=== PATIENT | male | born 1975 | race Asian ===

== ENCOUNTER 2017-12-07 23:06 | Emergency (ER) | payer MEDICAID ==
[~2017-12-07] VITALS: Ht 165.1 cm; Wt 47.6 kg
[~2017-12-07 23:06] MED LIST: NEU100 PO
[2017-12-07 23:15] VITALS: BP_SYST 135
[2017-12-07] MEDS: NACL 0.9% 1,000 ML IV ONE (23:56)
[2017-12-07] MEDS: DIPHENHYDRAMINE INJ 50 MG/ML VIAL IVP ONE (23:57)
[2017-12-07] MEDS: PROCHLORPERAZINE EDISYLATE 10 MG/2 ML VIAL IVP ONE (23:59)
[2017-12-08 00:50] VITALS: BP_SYST 120
== END 2017-12-08 00:50 | disposition home or self-care (01) ==
LOC: SED 23:06
DX: J03.90 Acute tonsillitis, unspecified (principal); C85.90 Non-Hodgkin lymphoma, unspecified, unspecified site; R11.2 Nausea with vomiting, unspecified; Z88.1 Allergy status to other antibiotic agents
CPT/HCPCS: 96361; 96374; 96375; 99284; J0780; J1200; J7030

== ENCOUNTER 2018-02-19 19:18 | Emergency (ER) | payer MEDICAID ==
[~2018-02-19] VITALS: Ht 165.1 cm; Wt 48.1 kg
[~2018-02-19 19:18] MED LIST changes: +LEVO250T20 PO; +NOR10 PO; +PRO40 PO; +SODI650T PO
[2018-02-19 19:19] VITALS: BP_SYST 121
[2018-02-19 20:33] LABS: EOSINOPHILS # (AUTO) 0.4 K/uL (0.0-0.4)
[2018-02-19 20:34] LABS: CREATININE 6.78 mg/dL (0.55-1.30); POTASSIUM 4.3 mmol/L (3.5-5.1)
[2018-02-19 20:35] LABS: INR 1.2 (0.80-1.20)
[2018-02-19] MEDS ORDERED: fentaNYL CITRATE/PF 100 MCG/2 ML AMP IVP ONE (20:45)
[2018-02-19] MEDS ORDERED: ONDANSETRON HCL 4 MG/2 ML VIAL IVP ONE (20:45)
[2018-02-19] MEDS ORDERED: NACL 0.9% 1,000 ML IV ONE (20:45)
[2018-02-19] MEDS ORDERED: KETOROLAC TROMETHAMINE 30 MG VIAL IVP ONE (20:45)
[2018-02-19 20:46] LABS: ALBUMIN 1.5 g/dL (3.4-4.8); TOTAL BILIRUBIN 0.3 mg/dL (0.0-1.0)
[2018-02-19 21:06] LABS: BASOPHILS % (AUTO) 0.5 % (0.0-2.0); EOSINOPHILS % (AUTO) 4.1 % (0.0-4.0); HEMATOCRIT 27.8 % (36-54); HEMOGLOBIN 9.6 g/dL (14.0-18.0); LYMPHOCYTES % (AUTO) 10.6 % (20.5-51.5); MEAN CORPUSCULAR HEMOGLOBIN 31 pg (27-31); MEAN CORPUSCULAR HGB CONC 35 % (32-36); MEAN CORPUSCULAR VOLUME 88 fL (79.0-98.0); MONOCYTES # (AUTO) 0.8 K/uL (0.0-1.0); MONOCYTES % (AUTO) 8.6 % (1.7-9.3); NEUTROPHILS # (AUTO) 7.4 K/uL (1.8-7.7); NEUTROPHILS % (AUTO) 76.2 % (40.0-70.0); PLATELET COUNT (AUTO) 489 K/uL (130-430); RED BLOOD CELL COUNT(AUTO) 3.16 MIL/uL (4.2-6.2); RED CELL DISTRIBUTION WIDTH 14.1 % (9.0-15.0); WHITE BLOOD COUNT (AUTO) 9.6 K/uL (4.8-10.8)
[2018-02-19] MEDS ORDERED: MORPHINE 4 MG/ML INJ. SYRINGE IVP ONE ×2 (21:30→22:30)
[2018-02-19 23:05] VITALS: BP_SYST 124
== END 2018-02-19 23:05 | disposition home or self-care (01) ==
LOC: SED 19:18
DX: M79.1 Myalgia (principal); D64.9 Anemia, unspecified; N18.9 Chronic kidney disease, unspecified; D47.Z2 Castleman disease; R03.0 Elevated blood-pressure reading, without diagnosis of hypertension; Z88.1 Allergy status to other antibiotic agents; Z79.899 Other long term (current) drug therapy
CPT/HCPCS: 36415; 71045; 80053; 80061; 82550; 83880; 84484; 85025; 85610; 85730; 93005; 96374; 96375; 96376; 99285; J1885; J2270; J2405; J3010; J7030

== ENCOUNTER 2018-04-10 19:24 | Inpatient (IN) | payer MEDICAID ==
[~2018-04-10] VITALS: Ht 165.1 cm; Wt 47.6 kg
[~2018-04-10 19:24] MED LIST changes: +LEVO250T2 PO; -LEVO250T20 PO
[2018-04-10 19:29] VITALS: BP_SYST 143
[2018-04-10] MEDS ORDERED: NACL 0.9% 1,000 ML IV ONE (19:42)
[2018-04-10 20:24] LABS: CALCIUM 8.1 mg/dL (8.4-11.0); CREATININE 5.64 mg/dL (0.55-1.30); POTASSIUM 3.9 mmol/L (3.5-5.1)
[2018-04-10 20:27] LABS: INR 1.2 (0.80-1.20); PROTHROMBIN TIME 12.6 SECS (9.5-12.5)
[2018-04-10 20:38] LABS: ALBUMIN 1.4 g/dL (3.4-4.8); TOTAL BILIRUBIN 0.4 mg/dL (0.0-1.0)
[2018-04-10 20:45] LABS: RED BLOOD CELL COUNT(AUTO) 2.19 MIL/uL (4.2-6.2); WHITE BLOOD COUNT (AUTO) 10.1 K/uL (4.8-10.8)
[2018-04-10 20:46] LABS: MEAN CORPUSCULAR HEMOGLOBIN 30 pg (27-31); MEAN CORPUSCULAR HGB CONC 34 % (32-36); MEAN CORPUSCULAR VOLUME 87 fL (79.0-98.0); PLATELET COUNT (AUTO) 441 K/uL (130-430)
[2018-04-10 20:47] LABS: HEMOGLOBIN 6.5 g/dL (14.0-18.0)
[2018-04-10 20:51] LABS: BAND % (MANUAL) 0 % (0-6)
[2018-04-10 20:52] LABS: BASOPHILS % (MANUAL) 0 % (0-2); EOSINOPHILS % (MANUAL) 2 % (0-7); LYMPHOCYTES % (MANUAL) 14 % (20-46); MONOCYTES % (MANUAL) 7 % (0-11)
[2018-04-10 23:48] VITALS: BP_SYST 132
[2018-04-11 00:35] VITALS: BP_SYST 140
[2018-04-11 01:41] VITALS: BP_SYST 132
[2018-04-11] MEDS: LORazepam 2 MG/ML VIAL IVP PRN (02:26)
[2018-04-11 07:55] VITALS: BP_SYST 132
[2018-04-11 08:33] LABS: ALBUMIN 1.3 g/dL (3.4-4.8); CALCIUM 8.2 mg/dL (8.4-11.0); CREATININE 6.12 mg/dL (0.55-1.30); POTASSIUM 3.9 mmol/L (3.5-5.1); TOTAL BILIRUBIN 0.6 mg/dL (0.0-1.0)
[2018-04-11] MEDS: PANTOPRAZOLE SODIUM 40 MG TAB PO SCH (08:35)
[2018-04-11] MEDS: SODIUM BICARBONATE 650 MG TABLET PO SCH ×3 (08:35→20:04)
[2018-04-11] MEDS: amLODIPine BESYLATE 10 MG TABLET PO SCH (08:37)
[2018-04-11 08:43] LABS: BASOPHILS # (AUTO) 0.1 K/uL (0.0-0.2); BASOPHILS % (AUTO) 0.9 % (0.0-2.0); EOSINOPHILS # (AUTO) 0.5 K/uL (0.0-0.4); EOSINOPHILS % (AUTO) 5.3 % (0.0-4.0); HEMOGLOBIN 7.2 g/dL (14.0-18.0); LYMPHOCYTES # (AUTO) 1.4 K/uL (1.0-5.5); LYMPHOCYTES % (AUTO) 14.7 % (20.5-51.5); MEAN CORPUSCULAR HEMOGLOBIN 31 pg (27-31); MEAN CORPUSCULAR HGB CONC 34 % (32-36); MEAN CORPUSCULAR VOLUME 90 fL (79.0-98.0); MONOCYTES % (AUTO) 10.1 % (1.7-9.3); NEUTROPHILS # (AUTO) 6.8 K/uL (1.8-7.7); PLATELET COUNT (AUTO) 424 K/uL (130-430); RED BLOOD CELL COUNT(AUTO) 2.33 MIL/uL (4.2-6.2); RED CELL DISTRIBUTION WIDTH 13.2 % (9.0-15.0); WHITE BLOOD COUNT (AUTO) 9.8 K/uL (4.8-10.8)
[2018-04-11 12:35] VITALS: BP_SYST 127
[2018-04-11 16:45] VITALS: BP_SYST 122
[2018-04-11 19:15] VITALS: BP_SYST 128
[2018-04-11] MEDS ORDERED: GABAPENTIN 100 MG CAPSULE PO SCH (21:00)
[2018-04-12] MEDS: LORazepam 2 MG/ML VIAL IVP PRN (00:15)
[2018-04-12 00:26] VITALS: BP_SYST 111
[2018-04-12 06:47] LABS: CALCIUM 8.4 mg/dL (8.4-11.0); CREATININE 4.19 mg/dL (0.55-1.30); POTASSIUM 4.6 mmol/L (3.5-5.1)
[2018-04-12 07:33] LABS: BASOPHILS # (AUTO) 0.1 K/uL (0.0-0.2); BASOPHILS % (AUTO) 0.6 % (0.0-2.0); EOSINOPHILS # (AUTO) 0.3 K/uL (0.0-0.4); EOSINOPHILS % (AUTO) 3.2 % (0.0-4.0); HEMATOCRIT 24.4 % (36-54); HEMOGLOBIN 8.7 g/dL (14.0-18.0); LYMPHOCYTES # (AUTO) 1.1 K/uL (1.0-5.5); LYMPHOCYTES % (AUTO) 12.4 % (20.5-51.5); MEAN CORPUSCULAR HEMOGLOBIN 31 pg (27-31); MEAN CORPUSCULAR HGB CONC 36 % (32-36); MEAN CORPUSCULAR VOLUME 87 fL (79.0-98.0); MONOCYTES # (AUTO) 0.9 K/uL (0.0-1.0); MONOCYTES % (AUTO) 10.2 % (1.7-9.3); NEUTROPHILS # (AUTO) 6.2 K/uL (1.8-7.7); NEUTROPHILS % (AUTO) 73.6 % (40.0-70.0); PLATELET COUNT (AUTO) 429 K/uL (130-430); RED BLOOD CELL COUNT(AUTO) 2.79 MIL/uL (4.2-6.2); RED CELL DISTRIBUTION WIDTH 13.3 % (9.0-15.0); WHITE BLOOD COUNT (AUTO) 8.6 K/uL (4.8-10.8)
[2018-04-12 07:54] VITALS: BP_SYST 121
[2018-04-12] MEDS: SODIUM BICARBONATE 650 MG TABLET PO SCH (08:12)
[2018-04-12] MEDS: PANTOPRAZOLE SODIUM 40 MG TAB PO SCH (08:13)
[2018-04-12] MEDS: amLODIPine BESYLATE 10 MG TABLET PO SCH (08:13)
[2018-04-12 10:08] VITALS: BP_SYST 121
== END 2018-04-12 10:50 | disposition home or self-care (01) | DRG 663 ==
LOC: SED 19:24 → STU 21:53
PROVIDERS: ADMIT Internal Medicine Hospice and Palliative Medicine; ATTEND Internal Medicine Hospice and Palliative Medicine
PROC: 30233N1 Transfusion of Nonautologous Red Blood Cells into Peripheral Vein, Percutaneous Approach (ICD-10-PCS; principal; 2018-04-10)
PROC: 5A1D70Z Performance of Urinary Filtration, Intermittent, Less than 6 Hours Per Day (ICD-10-PCS; 2018-04-11)
DX: D64.9 Anemia, unspecified (principal); E43 Unspecified severe protein-calorie malnutrition; N18.6 End stage renal disease; I12.0 Hypertensive chronic kidney disease with stage 5 chronic kidney disease or end stage renal disease; F12.90 Cannabis use, unspecified, uncomplicated; D47.Z2 Castleman disease; Z88.1 Allergy status to other antibiotic agents; Z88.8 Allergy status to other drugs, medicaments and biological substances; Z99.2 Dependence on renal dialysis; Z79.899 Other long term (current) drug therapy
CPT/HCPCS: 36415; 71045; 80048; 80053; 83880; 84484; 85007; 85025; 85027; 85610-TC; 85730-TC; 86886; 86900; 86901; 86920; 87081; 90935; 99285; J2060; J7030; J7050; P9021

== ENCOUNTER 2018-09-09 11:23 | Inpatient (IN) | payer OTHER, MEDICAID ==
[~2018-09-09] VITALS: Ht 165.1 cm; Wt 46.3 kg
[~2018-09-09 11:23] MED LIST changes: -LEVO250T2 PO
[2018-09-09 11:31] VITALS: BP_SYST 118
[2018-09-09] MEDS ORDERED: LEVO250T2 PO (11:45)
[2018-09-09] MEDS ORDERED: NACL 0.9% 1,000 ML IV ONE (12:03)
[2018-09-09] MEDS ORDERED: MORPHINE 4 MG/ML INJ. SYRINGE IM ONE (12:15)
[2018-09-09] MEDS ORDERED: ONDANSETRON HCL 4 MG/2 ML VIAL IVP ONE (12:15)
[2018-09-09 12:32] LABS: CALCIUM 8.9 mg/dL (8.4-11.0); CREATININE 3.89 mg/dL (0.55-1.30); INR 1.2 (0.80-1.20); POTASSIUM 4.3 mmol/L (3.5-5.1); PROTHROMBIN TIME 12.4 SECS (9.5-12.5)
[2018-09-09 12:37] LABS: ALBUMIN 1.9 g/dL (3.4-4.8); TOTAL BILIRUBIN 0.3 mg/dL (0.0-1.0)
[2018-09-09 12:45] LABS: BASOPHILS % (AUTO) 0.1 % (0.0-2.0); EOSINOPHILS # (AUTO) 0.1 K/uL (0.0-0.4); HEMATOCRIT 25.7 % (36-54); HEMOGLOBIN 8.3 g/dL (14.0-18.0); LYMPHOCYTES # (AUTO) 0.3 K/uL (1.0-5.5); LYMPHOCYTES % (AUTO) 3.9 % (20.5-51.5); MEAN CORPUSCULAR HEMOGLOBIN 26 pg (27-31); MEAN CORPUSCULAR HGB CONC 32 % (32-36); MEAN CORPUSCULAR VOLUME 81 fL (79.0-98.0); MONOCYTES # (AUTO) 0.3 K/uL (0.0-1.0); MONOCYTES % (AUTO) 3.8 % (1.7-9.3); NEUTROPHILS # (AUTO) 8.3 K/uL (1.8-7.7); NEUTROPHILS % (AUTO) 91.2 % (40.0-70.0); PLATELET COUNT (AUTO) 529 K/uL (130-430); RED BLOOD CELL COUNT(AUTO) 3.18 MIL/uL (4.2-6.2); RED CELL DISTRIBUTION WIDTH 17.2 % (9.0-15.0)
[2018-09-09] MEDS ORDERED: MORPHINE 2 MG/ML INJ. SYRINGE IVP ONE (13:00)
[2018-09-09] MEDS ORDERED: MORPHINE 4 MG/ML INJ. SYRINGE IVP ONE (13:30)
[2018-09-09 14:35] LABS: BILIRUBIN,URINE NEGATIVE (NEGATIVE); BLOOD, URINE 1+ (NEGATIVE); CLARITY/URINE SL HAZY (CLEAR); COLOR,URINE YELLOW (YELLOW); GLUCOSE,URINE 1+ (NEGATIVE); KETONES,URINE TRACE (NEGATIVE); LEUKOCYTE ESTERASE ,URINE NEGATIVE (NEGATIVE); NITRITE, URINE NEGATIVE (NEGATIVE); PH,URINE >=9.0 (5.0-8.0); PROTEIN URINE 3+ (NEGATIVE); UROBILINOGEN,URINE 0.2 (0.2-1.0)
[2018-09-09 14:42] LABS: BACTERIA,URINE FEW /HPF (None Seen); MUCUS,URINE 1+ /LPF (None Seen); WBC,URINE 0-3 /HPF (0-3)
[2018-09-09 14:52] VITALS: BP_SYST 118
[2018-09-09] MEDS ORDERED: MORPHINE 4 MG/ML INJ. SYRINGE IVP PRN (16:00)
[2018-09-09] MEDS ORDERED: PANTOPRAZOLE SODIUM 40 MG/VIAL (PROTONIX) IVP ONE (16:00)
[2018-09-09] MEDS ORDERED: MORPHINE 4 MG/ML INJ. SYRINGE ONE (16:15)
[2018-09-09] MEDS ORDERED: ACETAMINOPHEN 650 MG SUPP.RECT RC PRN (16:15)
[2018-09-09] MEDS: NACL 0.9% 1,000 ML IV SCH (16:20)
[2018-09-09 16:21] VITALS: BP_SYST 118
[2018-09-09] MEDS ORDERED: metroNIDAZOLE 500 mg/NS 100 ML IV ONE (16:30)
[2018-09-09] MEDS ORDERED: IPRATROPIUM/ALBUTEROL SULFATE 3 ML AMPUL.NEB (DUONEB) INH ONE (16:30)
[2018-09-09] MEDS: LEVOFLOXACIN 250 MG/D5W 50 ML IV SCH (17:22)
[2018-09-09 19:15] VITALS: BP_SYST 121
[2018-09-09] MEDS ORDERED: LORazepam 2 MG/ML VIAL IVP SCH (21:00)
[2018-09-09] MEDS: metroNIDAZOLE 500 mg/NS 100 ML IV SCH (21:37)
[2018-09-09] MEDS: IPRATROPIUM/ALBUTEROL SULFATE 3 ML AMPUL.NEB (DUONEB) INH SCH (23:07)
[2018-09-10 00:48] VITALS: BP_SYST 132
[2018-09-10] MEDS: metroNIDAZOLE 500 mg/NS 100 ML IV SCH ×3 (05:44→13:00)
[2018-09-10] MEDS: NACL 0.9% 1,000 ML IV SCH ×2 (05:45→12:27)
[2018-09-10] MEDS: IPRATROPIUM/ALBUTEROL SULFATE 3 ML AMPUL.NEB (DUONEB) INH SCH ×3 (07:04→22:00)
[2018-09-10 07:18] LABS: ALBUMIN 1.6 g/dL (3.4-4.8); BILIRUBIN,DIRECT 0.1 mg/dL (0.0-0.3); CALCIUM 8.7 mg/dL (8.4-11.0); CREATININE 4.68 mg/dL (0.55-1.30); POTASSIUM 4.2 mmol/L (3.5-5.1); THYROID STIMULATING HORMONE 2.18 uIu/mL (0.34-4.82); TOTAL BILIRUBIN 0.4 mg/dL (0.0-1.0)
[2018-09-10 07:29] LABS: TOTAL IRON BIND. CAPACITY 124 ug/dL (250-450)
[2018-09-10 08:16] VITALS: BP_SYST 120
[2018-09-10 08:23] LABS: BASOPHILS % (AUTO) 0.2 % (0.0-2.0); EOSINOPHILS # (AUTO) 0.1 K/uL (0.0-0.4); HEMATOCRIT 25.1 % (36-54); HEMOGLOBIN 7.8 g/dL (14.0-18.0); LYMPHOCYTES # (AUTO) 0.9 K/uL (1.0-5.5); LYMPHOCYTES % (AUTO) 5.9 % (20.5-51.5); MEAN CORPUSCULAR HEMOGLOBIN 26 pg (27-31); MEAN CORPUSCULAR HGB CONC 31 % (32-36); MEAN CORPUSCULAR VOLUME 83 fL (79.0-98.0); MONOCYTES # (AUTO) 0.9 K/uL (0.0-1.0); MONOCYTES % (AUTO) 5.9 % (1.7-9.3); NEUTROPHILS # (AUTO) 13.1 K/uL (1.8-7.7); PLATELET COUNT (AUTO) 438 K/uL (130-430); RED BLOOD CELL COUNT(AUTO) 3.03 MIL/uL (4.2-6.2); RED CELL DISTRIBUTION WIDTH 17.6 % (9.0-15.0)
[2018-09-10] MEDS: PANTOPRAZOLE SODIUM 40 MG/VIAL (PROTONIX) IVP SCH (08:47)
[2018-09-10] MEDS ORDERED: WATER FOR IRRIGATION,STERILE 1,000 ML IRRIG.SOLN IR ONE (10:10)
[2018-09-10] MEDS ORDERED: BUPIVACAINE /EPINEPHRINE/PF 0.25% 30 ML VIAL INJ ONE (10:10)
[2018-09-10] MEDS ORDERED: ONDANSETRON HCL 4 MG/2 ML VIAL IVP ONE (10:10)
[2018-09-10] MEDS ORDERED: fentaNYL CITRATE 250 MCG/5 ML AMP IV ONE (10:10)
[2018-09-10] MEDS ORDERED: PROPOFOL 200MG/ 20ML VIAL (DIPRIVAN) IV ONE (10:10)
[2018-09-10] MEDS ORDERED: MIDAZOLAM HCL 5 MG/5 ML VIAL IVP ONE (10:10)
[2018-09-10] MEDS ORDERED: ATRACURIUM BESYLATE 100 MG/10 ML VIAL (ATRACURIUM) IV ONE (10:10)
[2018-09-10] MEDS ORDERED: SEVOFLURANE 15 MIN GAS INH ONE (10:10)
[2018-09-10] MEDS ORDERED: NS 1000 ML IV.SOLN IV ONE (10:10)
[2018-09-10] MEDS ORDERED: 0.45% NACL 1,000 ML IV SCH (10:55)
[2018-09-10] MEDS ORDERED: METOCLOPRAMIDE HCL 10 MG/2 ML VIAL IVP PRN (11:00)
[2018-09-10] MEDS ORDERED: MORPHINE 4 MG/ML INJ. SYRINGE IVP PRN ×3 (11:00)
[2018-09-10] MEDS ORDERED: CEFAZOLIN 1 GM IVPB PREMIX 50 ML IV SCH (11:45)
[2018-09-10] MEDS ORDERED: ACETAMINOPHEN 325 MG TABLET PO PRN (11:45)
[2018-09-10 12:15] VITALS: BP_SYST 128
[2018-09-10] MEDS: HYDROmorphone 1 MG INJ. 1 MG/ML AMPUL IVP PRN ×2 (12:28→19:03)
[2018-09-10 12:43] VITALS: BP_SYST 125
[2018-09-10] MEDS ORDERED: HYDROcodone/ACETAMIN 5-325 MG TAB (NORCO/ VICODIN) PO PRN (13:00)
[2018-09-10] MEDS: ONDANSETRON HCL 4 MG/2 ML VIAL IVP PRN ×2 (17:10→21:20)
[2018-09-10 20:00] VITALS: BP_SYST 127
[2018-09-10] MEDS ORDERED: HYDROmorphone 1 MG INJ. 1 MG/ML AMPUL IVP PRN (21:45)
[2018-09-10] MEDS ORDERED: LORazepam 1 MG TABLET PO SCH (22:00)
[2018-09-11 00:35] VITALS: BP_SYST 105
[2018-09-11] MEDS: IPRATROPIUM/ALBUTEROL SULFATE 3 ML AMPUL.NEB (DUONEB) INH SCH ×3 (06:00→22:00)
[2018-09-11 07:41] LABS: BASOPHILS % (AUTO) 0.4 % (0.0-2.0); EOSINOPHILS # (AUTO) 0.5 K/uL (0.0-0.4); EOSINOPHILS % (AUTO) 5.2 % (0.0-4.0); HEMOGLOBIN 7.2 g/dL (14.0-18.0); LYMPHOCYTES # (AUTO) 0.8 K/uL (1.0-5.5); LYMPHOCYTES % (AUTO) 8.7 % (20.5-51.5); MEAN CORPUSCULAR HEMOGLOBIN 26 pg (27-31); MEAN CORPUSCULAR HGB CONC 30 % (32-36); MEAN CORPUSCULAR VOLUME 85 fL (79.0-98.0); MONOCYTES # (AUTO) 0.5 K/uL (0.0-1.0); NEUTROPHILS # (AUTO) 7.1 K/uL (1.8-7.7); NEUTROPHILS % (AUTO) 79.7 % (40.0-70.0); PLATELET COUNT (AUTO) 441 K/uL (130-430); RED BLOOD CELL COUNT(AUTO) 2.83 MIL/uL (4.2-6.2); RED CELL DISTRIBUTION WIDTH 17.3 % (9.0-15.0)
[2018-09-11 07:47] LABS: WHITE BLOOD COUNT (AUTO) 8.9 K/uL (4.8-10.8)
[2018-09-11 07:55] LABS: ALBUMIN 1.5 g/dL (3.4-4.8); CALCIUM 8.4 mg/dL (8.4-11.0); CREATININE 4.46 mg/dL (0.55-1.30); TOTAL BILIRUBIN 0.4 mg/dL (0.0-1.0)
[2018-09-11 08:26] VITALS: BP_SYST 128
[2018-09-11] MEDS: PANTOPRAZOLE SODIUM 40 MG/VIAL (PROTONIX) IVP SCH (08:31)
[2018-09-11 12:27] VITALS: BP_SYST 143
[2018-09-11] MEDS: ONDANSETRON HCL 4 MG/2 ML VIAL IVP PRN (12:52)
[2018-09-11] MEDS: NACL 0.9% 1,000 ML IV SCH (14:19)
[2018-09-11] MEDS: LEVOFLOXACIN 250 MG/D5W 50 ML IV SCH (15:49)
[2018-09-11 16:14] VITALS: BP_SYST 136
[2018-09-11] MEDS ORDERED: LORazepam 1 MG TABLET PO PRN (16:15)
[2018-09-11] MEDS: MUPIROCIN 2% TOPICAL OINTMENT 22 GM NS SCH ×2 (18:19→21:27)
[2018-09-11 20:25] VITALS: BP_SYST 115
[2018-09-12 01:28] VITALS: BP_SYST 138
[2018-09-12] MEDS: IPRATROPIUM/ALBUTEROL SULFATE 3 ML AMPUL.NEB (DUONEB) INH SCH ×3 (07:24→22:00)
[2018-09-12 07:41] LABS: BASOPHILS % (AUTO) 0.4 % (0.0-2.0); EOSINOPHILS # (AUTO) 0.4 K/uL (0.0-0.4); EOSINOPHILS % (AUTO) 5.4 % (0.0-4.0); HEMATOCRIT 25.7 % (36-54); HEMOGLOBIN 7.5 g/dL (14.0-18.0); LYMPHOCYTES # (AUTO) 0.6 K/uL (1.0-5.5); LYMPHOCYTES % (AUTO) 7.7 % (20.5-51.5); MEAN CORPUSCULAR HEMOGLOBIN 25 pg (27-31); MEAN CORPUSCULAR HGB CONC 29 % (32-36); MEAN CORPUSCULAR VOLUME 86 fL (79.0-98.0); MONOCYTES # (AUTO) 0.5 K/uL (0.0-1.0); MONOCYTES % (AUTO) 6.7 % (1.7-9.3); NEUTROPHILS # (AUTO) 6.1 K/uL (1.8-7.7); NEUTROPHILS % (AUTO) 79.8 % (40.0-70.0); PLATELET COUNT (AUTO) 465 K/uL (130-430); WHITE BLOOD COUNT (AUTO) 7.6 K/uL (4.8-10.8)
[2018-09-12 07:53] LABS: ALBUMIN 1.6 g/dL (3.4-4.8); CALCIUM 8.5 mg/dL (8.4-11.0); CREATININE 4.87 mg/dL (0.55-1.30); POTASSIUM 3.9 mmol/L (3.5-5.1); TOTAL BILIRUBIN 0.3 mg/dL (0.0-1.0)
[2018-09-12 08:26] VITALS: BP_SYST 143
[2018-09-12] MEDS: PANTOPRAZOLE SODIUM 40 MG/VIAL (PROTONIX) IVP SCH (09:09)
[2018-09-12] MEDS: MUPIROCIN 2% TOPICAL OINTMENT 22 GM NS SCH ×2 (09:10→20:23)
[2018-09-12] MEDS ORDERED: D5W 1,000 ML IV SCH (10:11)
[2018-09-12] MEDS ORDERED: HEPARIN SODIUM,PORCINE 5000 UNITS/ML VIAL MC PRN (10:30)
[2018-09-12 12:00] VITALS: BP_SYST 135
[2018-09-12] MEDS: NACL 0.9% 1,000 ML IV SCH (13:00)
[2018-09-12 16:00] VITALS: BP_SYST 134
[2018-09-12 19:05] VITALS: BP_SYST 118
[2018-09-13] MEDS: IPRATROPIUM/ALBUTEROL SULFATE 3 ML AMPUL.NEB (DUONEB) INH SCH (06:00)
[2018-09-13 06:25] VITALS: BP_SYST 108
[2018-09-13 07:52] VITALS: BP_SYST 131
[2018-09-13] MEDS: PANTOPRAZOLE SODIUM 40 MG/VIAL (PROTONIX) IVP SCH (08:54)
[2018-09-13] MEDS: MUPIROCIN 2% TOPICAL OINTMENT 22 GM NS SCH (08:54)
[2018-09-13 10:40] VITALS: BP_SYST 131
[2018-09-13 12:02] VITALS: BP_SYST 136
[2018-09-13 14:19] VITALS: BP_SYST 136
== END 2018-09-13 15:30 | disposition home or self-care (01) | DRG 338 ==
LOC: SED 11:23 → STU 14:11
PROVIDERS: ADMIT Internal Medicine; ATTEND Internal Medicine
PROC: 5A1D70Z Performance of Urinary Filtration, Intermittent, Less than 6 Hours Per Day (ICD-10-PCS; 2018-09-10)
PROC: 0DTJ4ZZ Resection of Appendix, Percutaneous Endoscopic Approach (ICD-10-PCS; principal; 2018-09-10 10:30)
PROC: 5A1D70Z Performance of Urinary Filtration, Intermittent, Less than 6 Hours Per Day (ICD-10-PCS; 2018-09-12)
PROC: 30233N1 Transfusion of Nonautologous Red Blood Cells into Peripheral Vein, Percutaneous Approach (ICD-10-PCS; 2018-09-12)
DX: K35.32 Acute appendicitis with perforation, localized peritonitis, and gangrene, without abscess (principal); N18.6 End stage renal disease; E43 Unspecified severe protein-calorie malnutrition; I12.0 Hypertensive chronic kidney disease with stage 5 chronic kidney disease or end stage renal disease; D47.Z2 Castleman disease; Z68.1 Body mass index [BMI] 19.9 or less, adult; K52.9 Noninfective gastroenteritis and colitis, unspecified; G62.9 Polyneuropathy, unspecified; D64.9 Anemia, unspecified; Z99.2 Dependence on renal dialysis; Z79.899 Other long term (current) drug therapy; Z92.21 Personal history of antineoplastic chemotherapy; Z88.1 Allergy status to other antibiotic agents
CPT/HCPCS: 36415; 71045; 80048; 80053; 80076; 81000-TC; 82150-TC; 82962; 83540-TC; 83550-TC; 83605; 83690-TC; 83735-TC; 83880; 84443-TC; 85025; 85610-TC; 86886; 86900; 86901; 86905; 86920; 87040-TC; 87070; 87070-TC; 87075-TC; 87081; 88304; 90935; 90937; 93005; 94640; 96361; 96374; 96375; 96376; 99285; C1727; C9113; G0378; J1170; J1644; J1956; J2060; J2250; J2270; J2405; J2704; J3010; J3490; J7030; J7040; J7060; J7620; P9021

== ENCOUNTER 2018-12-20 03:13 | Emergency (ER) | payer OTHER, MEDICAID ==
[~2018-12-20] VITALS: Ht 165.1 cm; Wt 48.5 kg
[~2018-12-20 03:13] MED LIST changes: +LEVO250T2 PO; -NOR10 PO; -SODI650T PO
[2018-12-20 03:40] VITALS: BP_SYST 111
[2018-12-20] MEDS ORDERED: NS 500 ML IV ONE (04:00)
[2018-12-20 04:27] LABS: BASOPHILS % (AUTO) 1.4 % (0.0-2.0); EOSINOPHILS % (AUTO) 6.8 % (0.0-4.0); HEMATOCRIT 26.3 % (36-54); HEMOGLOBIN 8.6 g/dL (14.0-18.0); LYMPHOCYTES # (AUTO) 0.6 K/uL (1.0-5.5); LYMPHOCYTES % (AUTO) 5.8 % (20.5-51.5); MEAN CORPUSCULAR HEMOGLOBIN 27 pg (27-31); MEAN CORPUSCULAR HGB CONC 33 % (32-36); MEAN CORPUSCULAR VOLUME 82 fL (79.0-98.0); MONOCYTES % (AUTO) 7.8 % (1.7-9.3); NEUTROPHILS # (AUTO) 7.4 K/uL (1.8-7.7); NEUTROPHILS % (AUTO) 78.2 % (40.0-70.0); PLATELET COUNT (AUTO) 529 K/uL (130-430); RED BLOOD CELL COUNT(AUTO) 3.22 MIL/uL (4.2-6.2); RED CELL DISTRIBUTION WIDTH 17.4 % (9.0-15.0); WHITE BLOOD COUNT (AUTO) 9.5 K/uL (4.8-10.8)
[2018-12-20 04:28] LABS: BASOPHILS # (AUTO) 0.1 K/uL (0.0-0.2); EOSINOPHILS # (AUTO) 0.6 K/uL (0.0-0.4); MONOCYTES # (AUTO) 0.7 K/uL (0.0-1.0)
[2018-12-20 04:34] LABS: CALCIUM 8.5 mg/dL (8.4-11.0); CREATININE 4.85 mg/dL (0.55-1.30); POTASSIUM 3.9 mmol/L (3.5-5.1)
[2018-12-20 04:40] LABS: ALBUMIN 1.6 g/dL (3.4-4.8); TOTAL BILIRUBIN 0.3 mg/dL (0.0-1.0)
[2018-12-20 05:05] VITALS: BP_SYST 114
== END 2018-12-20 03:40 | disposition home or self-care (01) ==
LOC: SED 03:13
DX: R53.1 Weakness (principal); Z86.2 Personal history of diseases of the blood and blood-forming organs and certain disorders involving the immune mechanism; Z88.1 Allergy status to other antibiotic agents; Z79.899 Other long term (current) drug therapy; Z99.2 Dependence on renal dialysis
CPT/HCPCS: 36415; 80053; 85025; 99283; J7040

== ENCOUNTER 2018-12-20 10:04 | Inpatient (IN) | payer OTHER, MEDICAID ==
[~2018-12-20] VITALS: Ht 165.1 cm; Wt 44.9 kg
[2018-12-20 10:12] VITALS: BP_SYST 119
[2018-12-20 11:31] LABS: BILIRUBIN,URINE NEGATIVE (NEGATIVE); BLOOD, URINE 2+ (NEGATIVE); CLARITY/URINE CLEAR (CLEAR); COLOR,URINE YELLOW (YELLOW); GLUCOSE,URINE 1+ (NEGATIVE); KETONES,URINE TRACE (NEGATIVE); LEUKOCYTE ESTERASE ,URINE NEGATIVE (NEGATIVE); NITRITE, URINE NEGATIVE (NEGATIVE); PH,URINE 8.5 (5.0-8.0); PROTEIN URINE 3+ (NEGATIVE)
[2018-12-20 11:38] LABS: BASOPHILS % (AUTO) 1.4 % (0.0-2.0); EOSINOPHILS % (AUTO) 4.2 % (0.0-4.0); HEMATOCRIT 26.6 % (36-54); HEMOGLOBIN 8.8 g/dL (14.0-18.0); LYMPHOCYTES # (AUTO) 0.6 K/uL (1.0-5.5); LYMPHOCYTES % (AUTO) 5.9 % (20.5-51.5); MEAN CORPUSCULAR HEMOGLOBIN 27 pg (27-31); MEAN CORPUSCULAR HGB CONC 33 % (32-36); MEAN CORPUSCULAR VOLUME 81 fL (79.0-98.0); MONOCYTES % (AUTO) 9.9 % (1.7-9.3); NEUTROPHILS # (AUTO) 7.5 K/uL (1.8-7.7); NEUTROPHILS % (AUTO) 78.6 % (40.0-70.0); PLATELET COUNT (AUTO) 511 K/uL (130-430); RED BLOOD CELL COUNT(AUTO) 3.27 MIL/uL (4.2-6.2); RED CELL DISTRIBUTION WIDTH 17.1 % (9.0-15.0)
[2018-12-20 11:39] LABS: BASOPHILS # (AUTO) 0.1 K/uL (0.0-0.2); EOSINOPHILS # (AUTO) 0.4 K/uL (0.0-0.4); MONOCYTES # (AUTO) 0.9 K/uL (0.0-1.0)
[2018-12-20 11:42] LABS: ANION GAP 11 (5-15); CALCIUM 8.5 mg/dL (8.4-11.0); CHLORIDE 99 mmol/L (98-107); CREATININE 5.02 mg/dL (0.55-1.30); GLUCOSE 118 mg/dL (70-99); POTASSIUM 3.9 mmol/L (3.5-5.1); SODIUM SERUM 136 mmol/L (136-145); UREA NITROGEN, BLOOD 36 mg/dL (8-21)
[2018-12-20 11:50] LABS: ALANINE AMINOTRANSFERASE 37 U/L (12-78); ALBUMIN 1.6 g/dL (3.4-4.8); ASPARTATE AMINOTRANSFERASE 33 U/L (10-37); TOTAL BILIRUBIN 0.3 mg/dL (0.0-1.0)
[2018-12-20 11:52] LABS: GFR AFRICAN AMERICAN 16 mL/min (>90)
[2018-12-20 12:08] LABS: WBC,URINE 0-3 /HPF (0-3)
[2018-12-20 12:09] LABS: BACTERIA,URINE RARE /HPF (None Seen)
[2018-12-20 16:19] VITALS: BP_SYST 130
[2018-12-20 19:00] VITALS: BP_SYST 122
[2018-12-20] MEDS ORDERED: LORazepam 2 MG/ML VIAL IVP PRN (19:30)
[2018-12-20] MEDS ORDERED: ONDANSETRON HCL 4 MG/2 ML VIAL IVP PRN (19:30)
[2018-12-20] MEDS ORDERED: ACETAMINOPHEN 325 MG TABLET PO PRN (19:30)
[2018-12-20] MEDS ORDERED: HYDROcodone/ACETAMIN 5-325 MG TAB (NORCO/ VICODIN) PO PRN (19:30)
[2018-12-20] MEDS ORDERED: HYDROcodone/ACETAMIN 10-325 MG TAB PO PRN (19:30)
[2018-12-20 20:00] VITALS: BP_SYST 122
[2018-12-20] MEDS ORDERED: NORMAL SALINE 5 ML DISP.SYRIN IVF SCH (22:00)
[2018-12-20] MEDS ORDERED: MECLIZINE HCL 25 MG TABLET (ANITVERT) PO PRN (22:00)
[2018-12-20] MEDS: NORMAL SALINE 5 ML DISP.SYRIN IVF SCH (22:05)
[2018-12-20] MEDS: GABAPENTIN 100 MG CAPSULE PO SCH (22:05)
[2018-12-21] MEDS ORDERED: PHENOL/MENTHOL 14.5 MG LOZENGE MM PRN (00:30)
[2018-12-21] MEDS ORDERED: MECLIZINE HCL 25 MG TABLET (ANITVERT) PO ONE (00:30)
[2018-12-21] MEDS: BENZOCAINE/MENTHOL 1 EACH LOZENGE MM PRN ×3 (00:50→17:40)
[2018-12-21 01:48] VITALS: BP_SYST 130
[2018-12-21] MEDS: PANTOPRAZOLE SODIUM 40 MG TAB PO SCH (06:33)
[2018-12-21] MEDS: NORMAL SALINE 5 ML DISP.SYRIN IVF SCH ×3 (06:33→22:25)
[2018-12-21 07:20] LABS: CREATININE 5.44 mg/dL (0.55-1.30); POTASSIUM 3.9 mmol/L (3.5-5.1)
[2018-12-21 07:30] LABS: ALBUMIN 1.6 g/dL (3.4-4.8); PHOSPHORUS 5.6 mg/dL (2.7-4.5); TOTAL BILIRUBIN 0.4 mg/dL (0.0-1.0)
[2018-12-21 07:50] VITALS: BP_SYST 131
[2018-12-21 08:34] LABS: HEMATOCRIT 26.5 % (36-54); HEMOGLOBIN 8.7 g/dL (14.0-18.0); MEAN CORPUSCULAR HEMOGLOBIN 27 pg (27-31); MEAN CORPUSCULAR HGB CONC 33 % (32-36); MEAN CORPUSCULAR VOLUME 83 fL (79.0-98.0); PLATELET COUNT (AUTO) 503 K/uL (130-430); RED CELL DISTRIBUTION WIDTH 17.1 % (9.0-15.0); WHITE BLOOD COUNT (AUTO) 8.6 K/uL (4.8-10.8)
[2018-12-21 08:35] LABS: BASOPHILS # (AUTO) 0.1 K/uL (0.0-0.2); EOSINOPHILS # (AUTO) 0.4 K/uL (0.0-0.4); EOSINOPHILS % (AUTO) 4.7 % (0.0-4.0); LYMPHOCYTES # (AUTO) 0.8 K/uL (1.0-5.5); LYMPHOCYTES % (AUTO) 9.7 % (20.5-51.5); MONOCYTES # (AUTO) 0.8 K/uL (0.0-1.0); MONOCYTES % (AUTO) 9.5 % (1.7-9.3); NEUTROPHILS # (AUTO) 6.5 K/uL (1.8-7.7); NEUTROPHILS % (AUTO) 75.1 % (40.0-70.0)
[2018-12-21] MEDS ORDERED: LEVOFLOXACIN 250 MG/D5W 50 ML IV SCH (11:00)
[2018-12-21 12:15] VITALS: BP_SYST 122
[2018-12-21 16:42] VITALS: BP_SYST 144
[2018-12-21 20:00] VITALS: BP_SYST 148
[2018-12-21] MEDS: MEROPENEM 500 MG in NS 50 ML IV SCH (21:57)
[2018-12-21] MEDS: GABAPENTIN 100 MG CAPSULE PO SCH (21:58)
[2018-12-22 04:00] VITALS: BP_SYST 156
[2018-12-22] MEDS: NORMAL SALINE 5 ML DISP.SYRIN IVF SCH (06:18)
[2018-12-22] MEDS: PANTOPRAZOLE SODIUM 40 MG TAB PO SCH (06:18)
[2018-12-22 07:33] VITALS: BP_SYST 120
[2018-12-22 08:23] LABS: CALCIUM 8.7 mg/dL (8.4-11.0); CREATININE 6.11 mg/dL (0.55-1.30); PHOSPHORUS 5.1 mg/dL (2.7-4.5); POTASSIUM 3.8 mmol/L (3.5-5.1)
[2018-12-22] MEDS: MEROPENEM 500 MG in NS 50 ML IV SCH (09:16)
[2018-12-22 09:43] LABS: C-REACTIVE PROTEIN QUANT 15.2 mg/dL (0-0.5)
[2018-12-22 10:50] LABS: HEMATOCRIT 27.5 % (36-54); HEMOGLOBIN 8.7 g/dL (14.0-18.0); MEAN CORPUSCULAR HEMOGLOBIN 26 pg (27-31); MEAN CORPUSCULAR HGB CONC 32 % (32-36); MEAN CORPUSCULAR VOLUME 84 fL (79.0-98.0); PLATELET COUNT (AUTO) 416 K/uL (130-430); RED BLOOD CELL COUNT(AUTO) 3.28 MIL/uL (4.2-6.2); RED CELL DISTRIBUTION WIDTH 17.2 % (9.0-15.0); WHITE BLOOD COUNT (AUTO) 9.4 K/uL (4.8-10.8)
[2018-12-22 10:51] LABS: BASOPHILS # (AUTO) 0.2 K/uL (0.0-0.2); BASOPHILS % (AUTO) 1.8 % (0.0-2.0); EOSINOPHILS # (AUTO) 0.5 K/uL (0.0-0.4); EOSINOPHILS % (AUTO) 5.3 % (0.0-4.0); ERYTHROCYTE SEDIMENTATION RATE 107 MM/HR (0-15); LYMPHOCYTES # (AUTO) 0.8 K/uL (1.0-5.5); LYMPHOCYTES % (AUTO) 8.8 % (20.5-51.5); MONOCYTES # (AUTO) 0.9 K/uL (0.0-1.0); MONOCYTES % (AUTO) 9.5 % (1.7-9.3); NEUTROPHILS % (AUTO) 74.6 % (40.0-70.0)
[2018-12-22 11:39] VITALS: BP_SYST 125
[2018-12-22] MEDS ORDERED: HEPARIN SODIUM,PORCINE 5000 UNITS/ML VIAL IVP ONE (11:45)
[2018-12-22 12:31] VITALS: BP_SYST 120
[2018-12-22] MEDS ORDERED: DOXY100C2 PO (13:36)
[2018-12-22 14:25] VITALS: BP_SYST 110
[2018-12-22 16:04] VITALS: BP_SYST 112
[2018-12-22] MEDS ORDERED: DOXYCYCLINE HYCLATE 100 MG CAPSULE PO SCH (22:00)
== END 2018-12-22 15:37 | disposition home or self-care (01) | DRG 193 ==
LOC: SED 10:04 → SMU 15:16 → STU 22:31
PROVIDERS: ADMIT Preventive Medicine Preventive Medicine/Occupational Environmental Medicine; ATTEND Preventive Medicine Preventive Medicine/Occupational Environmental Medicine
PROC: 5A1D70Z Performance of Urinary Filtration, Intermittent, Less than 6 Hours Per Day (ICD-10-PCS; principal; 2018-12-22)
DX: J18.9 Pneumonia, unspecified organism (principal); N18.6 End stage renal disease; E43 Unspecified severe protein-calorie malnutrition; D47.Z2 Castleman disease; E87.1 Hypo-osmolality and hyponatremia; Z68.1 Body mass index [BMI] 19.9 or less, adult; D47.9 Neoplasm of uncertain behavior of lymphoid, hematopoietic and related tissue, unspecified; J20.9 Acute bronchitis, unspecified; J32.9 Chronic sinusitis, unspecified; R73.9 Hyperglycemia, unspecified; E83.39 Other disorders of phosphorus metabolism; D63.8 Anemia in other chronic diseases classified elsewhere; E78.5 Hyperlipidemia, unspecified; Z99.2 Dependence on renal dialysis; Z92.21 Personal history of antineoplastic chemotherapy; Z88.1 Allergy status to other antibiotic agents
CPT/HCPCS: 36415; 70450-TC; 71045; 80048; 80053; 81000-TC; 83605; 83735-TC; 83880; 84100-TC; 84484; 85025; 85651-TC; 86140; 86710; 86738; 87040-TC; 87081; 87449; 90935; 93005; 93306; 93880; 96365; 99285; G0378; J1644; J1956; J2060; J2185; J7030; J7040; J8597

== ENCOUNTER 2019-03-31 17:08 | Inpatient (IN) | payer OTHER, MEDICAID ==
[~2019-03-31] VITALS: Ht 165.1 cm; Wt 46.7 kg
[~2019-03-31 17:08] MED LIST changes: +DOXY100C2 PO; -LEVO250T2 PO
[2019-03-31 17:16] VITALS: BP_SYST 114
[2019-03-31 17:53] LABS: BASOPHILS # (AUTO) 0.1 K/uL (0.0-0.2); BASOPHILS % (AUTO) 2.1 % (0.0-2.0); EOSINOPHILS # (AUTO) 0.1 K/uL (0.0-0.4); EOSINOPHILS % (AUTO) 1.4 % (0.0-4.0); LYMPHOCYTES # (AUTO) 0.5 K/uL (1.0-5.5); LYMPHOCYTES % (AUTO) 7.7 % (20.5-51.5); MEAN CORPUSCULAR HEMOGLOBIN 28 pg (27-31); MEAN CORPUSCULAR HGB CONC 33 % (32-36); MEAN CORPUSCULAR VOLUME 86 fL (79.0-98.0); MONOCYTES # (AUTO) 0.6 K/uL (0.0-1.0); MONOCYTES % (AUTO) 8.8 % (1.7-9.3); NEUTROPHILS # (AUTO) 5.7 K/uL (1.8-7.7); PLATELET COUNT (AUTO) 523 K/uL (130-430); RED BLOOD CELL COUNT(AUTO) 2.46 MIL/uL (4.2-6.2); RED CELL DISTRIBUTION WIDTH 14.6 % (9.0-15.0); WHITE BLOOD COUNT (AUTO) 7.1 K/uL (4.8-10.8)
[2019-03-31 17:59] LABS: HEMATOCRIT 21.3 % (36-54); HEMOGLOBIN 6.9 g/dL (14.0-18.0)
[2019-03-31 18:22] LABS: INR 1.2 (0.80-1.20); PROTHROMBIN TIME 12.3 SECS (9.5-12.5)
[2019-03-31 18:47] LABS: CALCIUM 8.5 mg/dL (8.4-11.0); CREATININE 5.26 mg/dL (0.55-1.30); POTASSIUM 3.8 mmol/L (3.5-5.1)
[2019-03-31 19:01] LABS: ALBUMIN 1.7 g/dL (3.4-4.8); TOTAL BILIRUBIN 0.3 mg/dL (0.0-1.0)
[2019-03-31] MEDS ORDERED: LORazepam 2 MG/ML VIAL IVP PRN (21:45)
[2019-03-31] MEDS ORDERED: HYDROcodone/ACETAMIN 5-325 MG TAB (NORCO/ VICODIN) PO PRN (21:45)
[2019-03-31] MEDS ORDERED: ONDANSETRON HCL 4 MG/2 ML VIAL IVP PRN (21:45)
[2019-03-31] MEDS ORDERED: ACETAMINOPHEN 325 MG TABLET PO PRN (21:45)
[2019-03-31] MEDS ORDERED: HYDROcodone/ACETAMIN 10-325 MG TAB PO PRN (21:45)
[2019-03-31 21:56] VITALS: BP_SYST 142
[2019-03-31] MEDS ORDERED: cefTRIAXone 1 GM IVPB PREMIX 50 ML IV SCH (22:00)
[2019-04-01 03:00] VITALS: BP_SYST 120
[2019-04-01 08:09] VITALS: BP_SYST 128
[2019-04-01] MEDS ORDERED: EPOETIN ALFA 3,000 UNITS/ML VIAL SUBCUT SCH (11:00)
[2019-04-01] MEDS ORDERED: ACETAMINOPHEN 325 MG TABLET PO PRN (11:00)
[2019-04-01] MEDS ORDERED: HYDROcodone/ACETAMIN 10-325 MG TAB PO PRN (11:00)
[2019-04-01] MEDS ORDERED: HYDROcodone/ACETAMIN 5-325 MG TAB (NORCO/ VICODIN) PO PRN (11:00)
[2019-04-01] MEDS ORDERED: ONDANSETRON HCL 4 MG/2 ML VIAL IVP PRN (11:00)
[2019-04-01 13:00] VITALS: BP_SYST 122
[2019-04-01] MEDS: NORMAL SALINE 5 ML DISP.SYRIN IVF SCH ×4 (14:00→22:04)
[2019-04-01 16:41] VITALS: BP_SYST 122
[2019-04-01 19:20] VITALS: BP_SYST 128
[2019-04-01 20:18] LABS: BASOPHILS # (AUTO) 0.1 K/uL (0.0-0.2); BASOPHILS % (AUTO) 1.8 % (0.0-2.0); EOSINOPHILS # (AUTO) 0.2 K/uL (0.0-0.4); EOSINOPHILS % (AUTO) 3.5 % (0.0-4.0); HEMATOCRIT 22.5 % (36-54); HEMOGLOBIN 7.4 g/dL (14.0-18.0); LYMPHOCYTES # (AUTO) 0.8 K/uL (1.0-5.5); LYMPHOCYTES % (AUTO) 12.3 % (20.5-51.5); MEAN CORPUSCULAR HEMOGLOBIN 28 pg (27-31); MEAN CORPUSCULAR HGB CONC 33 % (32-36); MEAN CORPUSCULAR VOLUME 86 fL (79.0-98.0); MONOCYTES # (AUTO) 0.7 K/uL (0.0-1.0); MONOCYTES % (AUTO) 10.9 % (1.7-9.3); NEUTROPHILS # (AUTO) 4.9 K/uL (1.8-7.7); NEUTROPHILS % (AUTO) 71.5 % (40.0-70.0); PLATELET COUNT (AUTO) 485 K/uL (130-430); RED BLOOD CELL COUNT(AUTO) 2.62 MIL/uL (4.2-6.2); RED CELL DISTRIBUTION WIDTH 14.6 % (9.0-15.0); WHITE BLOOD COUNT (AUTO) 6.8 K/uL (4.8-10.8)
[2019-04-01 20:27] LABS: CALCIUM 7.8 mg/dL (8.4-11.0); CREATININE 6.2 mg/dL (0.55-1.30)
[2019-04-01] MEDS: LORazepam 2 MG/ML VIAL IVP PRN (22:06)
[2019-04-02 01:03] VITALS: BP_SYST 130
[2019-04-02] MEDS: NORMAL SALINE 5 ML DISP.SYRIN IVF SCH ×4 (05:56→22:00)
[2019-04-02 06:46] LABS: BASOPHILS # (AUTO) 0.1 K/uL (0.0-0.2); BASOPHILS % (AUTO) 2.1 % (0.0-2.0); EOSINOPHILS # (AUTO) 0.3 K/uL (0.0-0.4); EOSINOPHILS % (AUTO) 4.1 % (0.0-4.0); HEMATOCRIT 22.8 % (36-54); HEMOGLOBIN 7.5 g/dL (14.0-18.0); LYMPHOCYTES % (AUTO) 14.7 % (20.5-51.5); MEAN CORPUSCULAR HEMOGLOBIN 28 pg (27-31); MEAN CORPUSCULAR HGB CONC 33 % (32-36); MEAN CORPUSCULAR VOLUME 86 fL (79.0-98.0); MONOCYTES # (AUTO) 0.7 K/uL (0.0-1.0); MONOCYTES % (AUTO) 11.1 % (1.7-9.3); NEUTROPHILS # (AUTO) 4.4 K/uL (1.8-7.7); PLATELET COUNT (AUTO) 469 K/uL (130-430); RED BLOOD CELL COUNT(AUTO) 2.64 MIL/uL (4.2-6.2); RED CELL DISTRIBUTION WIDTH 14.3 % (9.0-15.0); WHITE BLOOD COUNT (AUTO) 6.5 K/uL (4.8-10.8)
[2019-04-02 07:06] LABS: CALCIUM 8.9 mg/dL (8.4-11.0); CREATININE 6.47 mg/dL (0.55-1.30); PHOSPHORUS 4.8 mg/dL (2.7-4.5); POTASSIUM 4.3 mmol/L (3.5-5.1)
[2019-04-02 07:21] LABS: TOTAL IRON BIND. CAPACITY 124 ug/dL (250-450)
[2019-04-02 08:00] VITALS: BP_SYST 126
[2019-04-02] MEDS ORDERED: NORFLURANE/HFC 245FA 103.5 ML SPRAY TP ONE (09:30)
[2019-04-02] MEDS ORDERED: LIDOCAINE TOPICAL OINT 5%, 35 GM TP ONE (10:00)
[2019-04-02 11:37] VITALS: BP_SYST 131
[2019-04-02 15:36] VITALS: BP_SYST 138
[2019-04-02 20:45] VITALS: BP_SYST 135
[2019-04-02] MEDS: LORazepam 2 MG/ML VIAL IVP PRN (21:48)
[2019-04-03] MEDS: NORMAL SALINE 5 ML DISP.SYRIN IVF SCH ×2 (06:00)
[2019-04-03 06:33] LABS: BASOPHILS # (AUTO) 0.1 K/uL (0.0-0.2); BASOPHILS % (AUTO) 1.4 % (0.0-2.0); EOSINOPHILS # (AUTO) 0.2 K/uL (0.0-0.4); EOSINOPHILS % (AUTO) 3.5 % (0.0-4.0); HEMATOCRIT 25.2 % (36-54); HEMOGLOBIN 8.5 g/dL (14.0-18.0); LYMPHOCYTES # (AUTO) 0.9 K/uL (1.0-5.5); LYMPHOCYTES % (AUTO) 12.6 % (20.5-51.5); MEAN CORPUSCULAR HEMOGLOBIN 29 pg (27-31); MEAN CORPUSCULAR HGB CONC 34 % (32-36); MEAN CORPUSCULAR VOLUME 85 fL (79.0-98.0); MONOCYTES # (AUTO) 0.8 K/uL (0.0-1.0); MONOCYTES % (AUTO) 11.6 % (1.7-9.3); NEUTROPHILS # (AUTO) 5.1 K/uL (1.8-7.7); NEUTROPHILS % (AUTO) 70.9 % (40.0-70.0); PLATELET COUNT (AUTO) 430 K/uL (130-430); RED BLOOD CELL COUNT(AUTO) 2.95 MIL/uL (4.2-6.2); RED CELL DISTRIBUTION WIDTH 14.4 % (9.0-15.0); WHITE BLOOD COUNT (AUTO) 7.2 K/uL (4.8-10.8)
[2019-04-03 07:13] LABS: CALCIUM 8.5 mg/dL (8.4-11.0); CREATININE 4.4 mg/dL (0.55-1.30); PHOSPHORUS 3.9 mg/dL (2.7-4.5); POTASSIUM 3.6 mmol/L (3.5-5.1)
[2019-04-03 07:59] VITALS: BP_SYST 129
[2019-04-03 11:37] VITALS: BP_SYST 124
[2019-04-03 12:43] VITALS: BP_SYST 124
[2019-04-03 13:06] LABS: FOLATE (FOLIC ACID) 3.9 ng/mL (>3.0)
== END 2019-04-03 12:00 | disposition home or self-care (01) | DRG 682 ==
LOC: SED 17:08 → SMU 19:21
PROVIDERS: ADMIT Preventive Medicine Preventive Medicine/Occupational Environmental Medicine; ATTEND Preventive Medicine Preventive Medicine/Occupational Environmental Medicine
PROC: 30233N1 Transfusion of Nonautologous Red Blood Cells into Peripheral Vein, Percutaneous Approach (ICD-10-PCS; principal; 2019-04-01)
PROC: 5A1D70Z Performance of Urinary Filtration, Intermittent, Less than 6 Hours Per Day (ICD-10-PCS; 2019-04-02)
DX: I12.0 Hypertensive chronic kidney disease with stage 5 chronic kidney disease or end stage renal disease (principal); E43 Unspecified severe protein-calorie malnutrition; N18.6 End stage renal disease; E87.1 Hypo-osmolality and hyponatremia; D47.Z2 Castleman disease; Z68.1 Body mass index [BMI] 19.9 or less, adult; D63.1 Anemia in chronic kidney disease; E83.39 Other disorders of phosphorus metabolism; E11.22 Type 2 diabetes mellitus with diabetic chronic kidney disease; D47.3 Essential (hemorrhagic) thrombocythemia; R07.89 Other chest pain; Z99.2 Dependence on renal dialysis; Z88.8 Allergy status to other drugs, medicaments and biological substances; Z88.1 Allergy status to other antibiotic agents; Z79.899 Other long term (current) drug therapy
CPT/HCPCS: 36415; 71045; 80048; 80053; 82607; 82728; 82746; 83540-TC; 83550-TC; 83735-TC; 83880; 84100-TC; 84484; 85025; 85610-TC; 85730-TC; 86870; 86886; 86900; 86901; 86905; 86920; 87081; 90935; 93005; 99285; J0696; J0885; J2060; J7030; J7050; P9021

== ENCOUNTER 2019-07-22 02:48 | Inpatient (IN) | payer OTHER, MEDICAID ==
[~2019-07-22] VITALS: Ht 165.1 cm; Wt 47.2 kg
[2019-07-22 02:48] VITALS: BP_SYST 132
--- NOTE | 2019-07-22 02:48 | NUR ---
Pt ambulatory to ed 8 for evaluation
--- NOTE | 2019-07-22 03:00 | NUR ---
Pt c/o of dizziness and lightheadness for 2 days. Pt is a dialysis pt. Denies n/v/d or fever. No other complaints/injuries noted. Will cont. to monitor.
--- NOTE | 2019-07-22 03:14 | NUR ---
ER at bedside examining patient.
--- NOTE | 2019-07-22 04:20 | NUR ---
lab at bedside
[2019-07-22 04:37] LABS: BASOPHILS # (AUTO) 0.1 K/uL (0.0-0.2); EOSINOPHILS # (AUTO) 0.3 K/uL (0.0-0.4); EOSINOPHILS % (AUTO) 2.9 % (0.0-4.0); LYMPHOCYTES % (AUTO) 10.4 % (20.5-51.5); MEAN CORPUSCULAR HEMOGLOBIN 31 pg (27-31); MEAN CORPUSCULAR HGB CONC 34 % (32-36); MEAN CORPUSCULAR VOLUME 90 fL (79.0-98.0); MONOCYTES # (AUTO) 0.9 K/uL (0.0-1.0); MONOCYTES % (AUTO) 9.6 % (1.7-9.3); NEUTROPHILS % (AUTO) 76.1 % (40.0-70.0); PLATELET COUNT (AUTO) 403 K/uL (130-430); RED BLOOD CELL COUNT(AUTO) 2.15 MIL/uL (4.2-6.2); RED CELL DISTRIBUTION WIDTH 16.2 % (9.0-15.0); WHITE BLOOD COUNT (AUTO) 9.2 K/uL (4.8-10.8)
[2019-07-22 04:56] LABS: ANION GAP 9 (5-15); CALCIUM 7.2 mg/dL (8.4-11.0); CHLORIDE 97 mmol/L (98-107); CREATININE 5.29 mg/dL (0.55-1.30); GLUCOSE 108 mg/dL (70-99); POTASSIUM 3.4 mmol/L (3.5-5.1); SODIUM SERUM 129 mmol/L (136-145); UREA NITROGEN, BLOOD 40 mg/dL (8-21)
[2019-07-22 04:58] LABS: HEMATOCRIT 19.3 % (36-54)
[2019-07-22 04:59] LABS: HEMOGLOBIN 6.6 g/dL (14.0-18.0)
[2019-07-22 05:01] LABS: INR 1.2 (0.80-1.20); PROTHROMBIN TIME 11.9 SECS (9.5-12.5)
[2019-07-22 05:02] LABS: GFR AFRICAN AMERICAN 15 mL/min (>90)
[2019-07-22 05:09] LABS: ALANINE AMINOTRANSFERASE 28 U/L (12-78); ALBUMIN 1.7 g/dL (3.4-4.8); ASPARTATE AMINOTRANSFERASE 14 U/L (10-37); TOTAL BILIRUBIN 0.2 mg/dL (0.0-1.0)
[2019-07-22 05:13] LABS: ALCOHOL, BLOOD < 3 mg/dL (<10)
--- NOTE | 2019-07-22 05:27 | NUR ---
Pt signed blood transfusion consent, placed in chart.
--- NOTE | 2019-07-22 05:40 | NUR ---
Medication reconciliation completed with information provided by patient. Any prior medication reconciliation on file was reviewed and corrected. Pt reports he does not take any medications at home.
--- NOTE | 2019-07-22 05:42 | NUR ---
Note seanone in EDM - 07/22/19 at 0640 by CORAL Patient given written and verbal discharge instructions and verbalizes understanding. ER discussed with patient the results and treatment provided. Patient in stable condition. ID arm band removed. No Rx given. Patient educated on pain management and to follow up with PMD. Pain Scale 0/10. Opportunity for questions provided and answered. Medication side effect fact sheet provided.
--- NOTE | 2019-07-22 05:59 | NUR ---
Patient will be admitted to care of Dr. Bass. Admitted to [facility] unit. Will go to room 135. Belongings list completed. Summary report printed. Report will be given at bedside.
--- NOTE | 2019-07-22 06:12 | NUR ---
Called [facility] for bed, spoke to CN, due to staffing cannot move pt till 0700.
--- NOTE | 2019-07-22 06:31 | NUR ---
Pt gave urine specimen, sent to lab.
[2019-07-22 06:46] LABS: BARBITURATE, URINE NEGATIVE (NEG <=200); BENZODIAZEPINE, URINE NEGATIVE (NEG <=150); CANNABINOID, URINE POSITIVE (NEG <=50); COCAINE, URINE NEGATIVE (NEG <=150); METHAMPHETAMINES SCREEN,URINE NEGATIVE (NEG <=500); URINE AMPHETAMINE NEGATIVE (NEG <=500); URINE METHADONE NEGATIVE (NEG <=200)
[2019-07-22 06:47] LABS: OPIATE, URINE NEGATIVE (NEG <=100); PHENCYCLIDINE SCREEN,URINE NEGATIVE (NEG <=25); UR TRICYCLIC ANTIDEPRESSANTS NEGATIVE (NEG <=300); URINE OXYCODONE SCREEN NEGATIVE (NEG <=100); URINE PROPOXYPHENE SCREEN NEGATIVE (NEG <=300)
[2019-07-22] MEDS ORDERED: MUPIROCIN 2% TOPICAL OINTMENT 22 GM NS PRN (07:00)
[2019-07-22] MEDS ORDERED: DOCUSATE SODIUM 100 MG CAPSULE PO PRN (07:00)
[2019-07-22] MEDS ORDERED: POTASSIUM CHLORIDE 20 MEQ TAB.PRT.SR PO PRN (07:00)
[2019-07-22] MEDS ORDERED: ZOLPIDEM TARTRATE 5 MG TABLET PO PRN (07:00)
[2019-07-22] MEDS ORDERED: MORPHINE 2 MG/ML INJ. SYRINGE IVP PRN ×2 (07:00)
[2019-07-22] MEDS ORDERED: ONDANSETRON HCL 4 MG/2 ML VIAL IVP PRN (07:00)
[2019-07-22] MEDS ORDERED: ACETAMINOPHEN 325 MG TABLET PO PRN (07:00)
[2019-07-22] MEDS ORDERED: MAGNESIUM SULFATE 50 ML IV PRN (07:00)
--- NOTE | 2019-07-22 07:02 | NUR ---
Transfer to [place]. Licensed nurse present. IV present no signs or symptoms of infiltration.
--- NOTE | 2019-07-22 07:14 | NUR ---
ADMISSION NOTE Received patient from ER via adriel, received report from OSEAS RN. Patient admitted with diagnosis of SEVERE ANEMIA. Patient oriented to hospital routine, call light, toileting and safety-patient verbalized understanding.
[2019-07-22 07:19] VITALS: BP_SYST 134
--- NOTE | 2019-07-22 07:55 | NUR ---
Nephro consult called: For Dr. Lozano, regarding ??, ordered by Dr. Bass, spoke with ridge
--- NOTE | 2019-07-22 08:00 | NUR ---
RN INITIAL NOTES RECEIVED PATIENT NEW ADMIT ALERT AWAKE AND VERBALLY RESPONSIVE IV HL TO RT ARM AV SHUNT TO LEFT UPPER ARM PATIENT IS FOR BLOOD TRANSFUSION PER FROM LAB THEY HAVE TO GO TO [facility] TO GET THE BLOOD AND DO XMATCH WILL NOTIFY ONCE AVAIL , DR ROMERO RETURNED CALL AND AWARE OF THE CONSULT WILL COME LATER , PATIENT ADVISED BED REST FOR NOW D/T LOW HGB , SAFETY ENSURED
[2019-07-22 08:31] LABS: TOTAL IRON BIND. CAPACITY 56 ug/dL (250-450)
--- NOTE | 2019-07-22 09:00 | NUR ---
DR ZAMUDIO PATIENT SEEN BY DR ZAMUDIO EXPLAINED THAT BLOOD WILL TAKE A WHILE D/T LAB WILL GET THE BLOOD FROM [facility] , PATIENT HAS ANTI BODY , DR ZAMUDIO INFORMED THAT DR ROMERO WILL COME AND SEE PATIENT TODAY . ALSO INFORMED MD PATIENT HAD DIALYSIS YESTERDAY BUT NO FLUID OUT , DR NGUYỄN NOTED
--- NOTE | 2019-07-22 09:16 | NUR ---
DR SIMPSON PATIENT SEEN BY DR SIMPSON AND DISCUSSED WITH HIM REGARDING DR REINALDO MARTIN CT OF THE NECK NOT NECESSARY , PER DR SIMPSON PATIENT CT OF THE NECK WILL BE CANCELLED AND HE WILL DC PATIENT WITH PO ATB TO FOLLOW UP WITH PCP IN I WEEK AND EENT WILL BE REFERRED BY PCP WITH CONTRACTED PROVIDER . DR SIMPSON EXPLAINED TO THE PATIENT Addendum: 07/22/19 at 1210 by Yumiko Silva RN ERROR THIS NO9TE IS NOT FOR THIS PATIENT , IT BELONG TO ANOTHER PATIENT
[2019-07-22 09:48] VITALS: BP_SYST 134
--- NOTE | 2019-07-22 10:00 | NUR ---
ROUNDS FAMILY AT BEDSIDE VISITING , WILL CONT CARE PATIENT HAS NO C/O OF DIZZINESS OR CHEST PAIN
--- NOTE | 2019-07-22 11:15 | NUR ---
BLOOD STILL PENDING YUSUF FROM LAB CALLED THAT BLOOD STILL PENDING D/T BLOOD WILL BE SEND OUT TO [facility] FOR ANTIBODY IN FORMED PATIENT
--- NOTE | 2019-07-22 12:16 | NUR ---
DR ROMERO TUBING MACHINE TENDER CAME INFORMED BLOOD STILL PENDING D/T ANTIBODY TO SEND OUT , PATIENT HAS URINE OUTPUT DR ROMERO SAID NO DIALYSIS TODAY
[2019-07-22] MEDS: SOD FERRIC GLUC COMPLEX/SUC 125 MG in NS 100 ML IV SCH (12:33)
[2019-07-22 12:45] VITALS: BP_SYST 126
[2019-07-22] MEDS: LORazepam 2 MG/ML VIAL IVP PRN ×2 (12:50→20:53)
[2019-07-22] MEDS ORDERED: CLIN300C11 PO (13:05)
[2019-07-22] MEDS ORDERED: LEVO750T45 PO (13:06)
[2019-07-22] MEDS ORDERED: LEVO750T19 PO (13:08)
--- NOTE | 2019-07-22 14:00 | NUR ---
ROUNDS /SLEEPING PATIENT SLEEPING AT THIS TIME PATIENT HAD ATIVAN IV AND TOLERATING FERRITIN
[2019-07-22 15:03] VITALS: BP_SYST 140
--- NOTE | 2019-07-22 15:54 | NUR ---
SLEEPING PATIENT SLEEPING STILL AT THIS TIME NO SIGN OF DISTRESS STILL NO BLOOD AVAILABLE, PENDING
--- NOTE | 2019-07-22 17:00 | NUR ---
BLOOD PENDING [facility] STILL PENDING [facility] STILL NOT RELEASED THE BLOOD PATIENT MADE AWARE Addendum: 07/22/19 at 1734 by Yumiko Silva RN SPOKE WITH SPIRITUAL MINISTER
--- NOTE | 2019-07-22 17:34 | NUR ---
ENDORSEMENT WILL CONT WITH PLAN OF CARE AT THIS TIME STILL NO BLOOD PENDING [facility] RELEASE OF THE BLOOD , PATIENT NO SIGN OF PAIN , NO DIZZINESS
[2019-07-22 20:00] VITALS: BP_SYST 145
[2019-07-23 01:22] VITALS: BP_SYST 127
[2019-07-23] MEDS: LORazepam 2 MG/ML VIAL IVP PRN (03:34)
[2019-07-23 06:35] LABS: HEMOGLOBIN 7.1 g/dL (14.0-18.0); MEAN CORPUSCULAR HEMOGLOBIN 31 pg (27-31); MEAN CORPUSCULAR HGB CONC 34 % (32-36); MEAN CORPUSCULAR VOLUME 90 fL (79.0-98.0); PLATELET COUNT (AUTO) 384 K/uL (130-430); RED CELL DISTRIBUTION WIDTH 15.6 % (9.0-15.0); WHITE BLOOD COUNT (AUTO) 7.8 K/uL (4.8-10.8)
[2019-07-23 06:38] LABS: CALCIUM 7.3 mg/dL (8.4-11.0); CREATININE 5.55 mg/dL (0.55-1.30); POTASSIUM 3.6 mmol/L (3.5-5.1)
--- NOTE | 2019-07-23 08:00 | NUR ---
Opening notes, Receioved pt in bed, pt is aaox4, denies pain, no sob, no resp distress. safety precaution in place , call light in reach. bed in low position. encouraged to call for assist and pain meds. will cont to monitor.
[2019-07-23 08:04] VITALS: BP_SYST 136
[2019-07-23 08:08] LABS: HEMATOCRIT 20.6 % (36-54)
[2019-07-23] MEDS ORDERED: FERR-69 PO (08:36)
--- NOTE | 2019-07-23 08:50 | NUR ---
pt made aware of dc order by dr veliz.
[2019-07-23] MEDS: SOD FERRIC GLUC COMPLEX/SUC 125 MG in NS 100 ML IV SCH (09:00)
[2019-07-23 09:41] VITALS: BP_SYST 136
--- NOTE | 2019-07-23 10:10 | NUR ---
D/C Patient Patient given medication reconciliation form and D/C instructions. Exit Care provided. Patient verbalized understanding. MD discussed with patient the results and treatment provided. Ambulatory with steady gait for discharge to home. Patient in stable condition, ID band removed. IV catheter removed, intact and dressing applied, no active bleeding. No Rx given. Patient educated on pain management. All belongings sent with patient. Pt instructed to see pcp in one week, request for CBC in one week and follow care with HD doctor and HD center. Pt verbalized understanding.
[2019-07-23 11:38] LABS: BASOPHILS % (MANUAL) 0 % (0-2); EOSINOPHILS % (MANUAL) 1 % (0-7); LYMPHOCYTES % (MANUAL) 9 % (20-46); MONOCYTES % (MANUAL) 10 % (0-11)
[2019-07-23 11:57] LABS: FOLATE (FOLIC ACID) 16.7 ng/mL (>3.0)
[2019-07-24 08:06] LABS: HEMOGLOBIN A1C 5.1 % (4.8-5.6)
== END 2019-07-23 10:10 | disposition home or self-care (01) | DRG 682 ==
LOC: SED 02:48 → SMU 05:58
PROVIDERS: ADMIT General Practice; ATTEND General Practice
PROC: 30233N1 Transfusion of Nonautologous Red Blood Cells into Peripheral Vein, Percutaneous Approach (ICD-10-PCS; principal; 2019-07-22)
DX: N17.0 Acute kidney failure with tubular necrosis (principal); E43 Unspecified severe protein-calorie malnutrition; C85.90 Non-Hodgkin lymphoma, unspecified, unspecified site; D47.Z2 Castleman disease; E87.1 Hypo-osmolality and hyponatremia; Z68.1 Body mass index [BMI] 19.9 or less, adult; D50.9 Iron deficiency anemia, unspecified; N18.6 End stage renal disease; Z99.2 Dependence on renal dialysis; Z90.89 Acquired absence of other organs; Z88.1 Allergy status to other antibiotic agents; Z88.8 Allergy status to other drugs, medicaments and biological substances
CPT/HCPCS: 36415; 80048; 80053; 80307; 82607; 82728; 82746; 83036; 83540-TC; 83550-TC; 83735-TC; 84484; 85007; 85025; 85027; 85610-TC; 85730-TC; 86870; 86886; 86900; 86901; 86920; 87081; 93005; 99285; G0482; J2060; J2916; J7040; P9021

== ENCOUNTER 2019-09-08 12:09 | Inpatient (IN) | payer OTHER, MEDICAID ==
[~2019-09-08] VITALS: Ht 165.1 cm; Wt 47.3 kg
[2019-09-08 12:09] VITALS: BP_SYST 128
[~2019-09-08 12:09] MED LIST changes: -DOXY100C2 PO; +FERR-69 PO; -NEU100 PO; -PRO40 PO
--- NOTE | 2019-09-08 12:20 | NUR ---
Patient to ER bed 07 to gown for evaluation. Side rails up.
--- NOTE | 2019-09-08 12:20 | NUR ---
JENNIFER Rosales at bedside examining patient.
--- NOTE | 2019-09-08 12:24 | NUR ---
Pt AAOx4 ambulated into ED c/o generalized weakness, nausea, vomiting, headache x 3-5 days with new onset SOB and chest pain. Pt reports he has hx of blood transfusions and last transfusion was done about 2 months ago. Dialysis T, Th, Sat. No other injuries/complaints per pt/noted. Will [id number] to monitor.
[2019-09-08] MEDS ORDERED: ONDANSETRON HCL 4 MG/2 ML VIAL IVP ONE (12:30)
[2019-09-08 12:58] LABS: BASOPHILS # (AUTO) 0.1 K/uL (0.0-0.2); BASOPHILS % (AUTO) 1.3 % (0.0-2.0); EOSINOPHILS # (AUTO) 0.1 K/uL (0.0-0.4); LYMPHOCYTES # (AUTO) 0.8 K/uL (1.0-5.5); LYMPHOCYTES % (AUTO) 11.2 % (20.5-51.5); MEAN CORPUSCULAR HEMOGLOBIN 31 pg (27-31); MEAN CORPUSCULAR HGB CONC 35 % (32-36); MEAN CORPUSCULAR VOLUME 89 fL (79.0-98.0); MONOCYTES # (AUTO) 0.8 K/uL (0.0-1.0); MONOCYTES % (AUTO) 10.7 % (1.7-9.3); NEUTROPHILS # (AUTO) 5.6 K/uL (1.8-7.7); NEUTROPHILS % (AUTO) 74.8 % (40.0-70.0); PLATELET COUNT (AUTO) 451 K/uL (130-430); RED BLOOD CELL COUNT(AUTO) 2.11 MIL/uL (4.2-6.2); RED CELL DISTRIBUTION WIDTH 14.8 % (9.0-15.0); WHITE BLOOD COUNT (AUTO) 7.5 K/uL (4.8-10.8)
[2019-09-08 13:01] LABS: HEMATOCRIT 18.8 % (36-54); HEMOGLOBIN 6.5 g/dL (14.0-18.0)
[2019-09-08 13:03] LABS: ANION GAP 9 (5-15); CHLORIDE 98 mmol/L (98-107); CREATININE 5.53 mg/dL (0.55-1.30); GLUCOSE 111 mg/dL (70-99); POTASSIUM 3.7 mmol/L (3.5-5.1); SODIUM SERUM 134 mmol/L (136-145); UREA NITROGEN, BLOOD 39 mg/dL (8-21)
[2019-09-08 13:11] LABS: ALANINE AMINOTRANSFERASE 18 U/L (12-78); ALBUMIN 1.6 g/dL (3.4-4.8); ASPARTATE AMINOTRANSFERASE 13 U/L (10-37); TOTAL BILIRUBIN 0.3 mg/dL (0.0-1.0)
[2019-09-08 13:14] LABS: CALCIUM 6.2 mg/dL (8.4-11.0); GFR AFRICAN AMERICAN 15 mL/min (>90)
--- NOTE | 2019-09-08 13:34 | NUR ---
CALL TO PHARMACY, PT IS ANTIBODY+ PER LAB, BLOOD WILL BE DELAYED
--- NOTE | 2019-09-08 14:33 | NUR ---
MST was called for bed.
--- NOTE | 2019-09-08 14:45 | NUR ---
Patient will be admitted to care of Arik. Admitted to Telemetry unit. Will go to room 124A. Complete and up to date summary report printed. SBAR report to be given at bedside with opportunity for questions.
--- NOTE | 2019-09-08 14:47 | NUR ---
Pt states he takes no home medications
[2019-09-08 14:55] VITALS: BP_SYST 135
--- NOTE | 2019-09-08 14:55 | NUR ---
ADMISSION: The patient, LASHAE ISBELL, 44 y/o, M admitted by EDMUNDO GOTTI MD, was given written information regarding hospital policies, unit procedures and contact persons. Valuables were checked and logged in. PATIENT IS AWAKE. A/OX4. DENIES PAIN. ROOM AIR. NO ACUTE DISTRESS. NO SOB. RESPIRATION EVEN AND UNLABORED. SKIN WARM AND DRY TO TOUCH. IV INTACT AND PATENT. ORIENTED PATIENT TO ROOM , BED AND CALL LIGHT. ALL NEEDS MET. DISCUSSED PLAN OF CARE. BED IN LOW AND LOCKED POSITION. SIDERAIL UPX2. BED ALARM ON. CALL LIGHT IN REACH. CONT TO MONITOR
[2019-09-08 15:08] VITALS: BP_SYST 135
--- NOTE | 2019-09-08 15:45 | NUR ---
SPOKE TO REGARDING CONSULT. ORDERED HEMODIALYSIS TODAY. PATIENT REQUESTED TO DO DIALYSIS TOMORROW DUE TO PATIENT DOES NOT WANT TO BE OFF FRIDAY/FRIDAY DIALYSIS SCHEDULE. INFORMED PATIENT RISKS AND PATIENT CONT TO WANT DIALYSIS TOMORROW. INFORMED AND OKAY TO WAIT AND LET PATIENT HAVE DIALYSIS TOMORROW ().
--- NOTE | 2019-09-08 17:12 | NUR ---
NOTE PATIENT STABLE. SITTING UP WATCHING MOVIES ON IPAD. ALL NEEDS MET. CONT TO MONITOR
--- NOTE | 2019-09-08 18:50 | NUR ---
CLOSING NOTE PATIENT STABLE. SITTING UP IN BED. NO ACUTE DISTRESS. NO SOB. RESPIRATION EVEN AND UNLABORED. SKIN WARM AND DRY TO TOUCH. IV INTACT AND PATENT. ALL NEEDS MET. AWAITING FOR BLOOD BANK TO CALL TO [facility] FOR TRANSFUSION; PATIENT AWARE. CALL LIGHT IN REACH. CONT TO MONITOR. WILL ENDORSE TO ONCOMING SHIFT.
--- NOTE | 2019-09-08 19:20 | NUR ---
OPENING NOTE RECEIVED CARE OF PT AND SBAR REPORT. PATIENT IS AAOX4. DENIES PAIN. ON ROOM AIR. NO ACUTE DISTRESS. NO SOB. RESPIRATION EVEN AND UNLABORED. SKIN WARM AND DRY TO TOUCH. IV INTACT AND PATENT. ORIENTED PATIENT TO ROOM , BED AND CALL LIGHT. ALL NEEDS MET. DISCUSSED PLAN OF CARE, PATIENT VERBALIZED UNDERSTANDING. BED IS IN LOW AND LOCKED POSITION. SIDERAIL UPX2. REFUSED BED ALARM AT THIS TIME. CALL LIGHT IN REACH. WILL CONT TO MONITOR.
--- NOTE | 2019-09-08 19:33 | NUR ---
Paged Dr. Lozano s/w Leia
--- NOTE | 2019-09-08 19:38 | NUR ---
SPOKE TO DR. PADILLA REGARDING PT'S ANXIETY AND REQUEST FOR ANXIETY MEDICATION. NEW ORDER RECEIVED. WILL CARRY OUT.
[2019-09-08] MEDS ORDERED: LORazepam 1 MG TABLET PO PRN (19:45)
[2019-09-08 20:00] VITALS: BP_SYST 137
--- NOTE | 2019-09-08 20:13 | NUR ---
ANXIETY/ATIVAN PT REPORTING ANXIETY. ATIVAN 1 MG PO ADMINISTERED ORDERED PRN. MEDICATION AND POTENTIAL SIDE EFFECTS DISCUSSED WITH PT. SAFETY PRECAUTIONS IN PLACE. WILL MONITOR.
--- NOTE | 2019-09-08 22:28 | NUR ---
Paged Dr. Lozano, s/w Leia
--- NOTE | 2019-09-08 22:34 | NUR ---
SPOKE TO DR. PADILLA REGARDING PT'S REPORT OF SEVERE PAIN. NEW ORDER RECEIVED. WILL IMPLEMENT.
[2019-09-08] MEDS ORDERED: HYDROcodone/ACETAMIN 5-325 MG TAB (NORCO/ VICODIN) PO PRN (22:45)
--- NOTE | 2019-09-08 23:15 | NUR ---
BT INITIATION: Consent signed per PT agreeing to administration of blood. Blood has been type and crossmatched. Blood sent from blood bank. Information on unit of blood checked against patient wristband at bedside by two nurses. All information matches. Patient or responsible constitution party informed of potential complications associated with blood transfusion. Informed of possible transfusion reaction symptoms. Aware of need to notify nurse at once of itching, shortness of breath, flushing, feeling of impending doom, or other symptoms not previously present. Vital signs taken within 5 minutes prior to initiation of transfusion. RN will remain with patient for first 15 minutes of transfusion at which time vital signs will be re-assessed.
[2019-09-08 23:30] VITALS: BP_SYST 130
--- NOTE | 2019-09-09 01:34 | NUR ---
BLOOD TRANSFUSION END NO S/S OF ADVERSE REACTION. VSS. PT TOLERATED WELL. 2ND TRANSFUSION TO FOLLOW.
[2019-09-09 01:45] VITALS: BP_SYST 125
--- NOTE | 2019-09-09 01:45 | NUR ---
2 UNIT BT INITIATION: Consent signed per PT agreeing to administration of blood. Blood has been type and crossmatched. Blood sent from blood bank. Information on unit of blood checked against patient wristband at bedside by two nurses. All information matches. Patient or responsible alliance party informed of potential complications associated with blood transfusion. Informed of possible transfusion reaction symptoms. Aware of need to notify nurse at once of itching, shortness of breath, flushing, feeling of impending doom, or other symptoms not previously present. Vital signs taken within 5 minutes prior to initiation of transfusion. RN will remain with patient for first 15 minutes of transfusion at which time vital signs will be re-assessed.
--- NOTE | 2019-09-09 04:10 | NUR ---
BLOOD TRANSFUSION END NO S/S OF ADVERSE REACTION. VSS. PT TOLERATED WELL.
--- NOTE | 2019-09-09 06:59 | NUR ---
CLOSING NOTE PT RESTING IN BED, NO S/S OF ACUTE DISTRESS, BREATHING IS EVEN AND UNLABORED TO ROOM AIR. ALL NEEDS MET DURING SHIFT. SAFETY MAINTAINED. WILL ENDORSE TO DAY SHIFT RN.
--- NOTE | 2019-09-09 07:08 | NUR ---
RN OPENING NOTE PATIENT APPEARS TO BE RESTING WITH BOTH EYES CLOSED NO SIGNS OF ANY DISTRESS, BREATHING IS EQUAL AND NON LABORED. PATIENT IS ON TELE MONITOR. PATIENT HAS ALL SAFETY PRECAUTIONS IN PLACE. WILL CONTINUE TO MONITOR.
[2019-09-09 07:59] VITALS: BP_SYST 114
--- NOTE | 2019-09-09 09:00 | NUR ---
dr. quinonez at nurses station patient is awake and alert. per md ok to discharge patient home to have dialysis done and dialysis center if hemoglobin has improved to 9, if less then 9 give md a call. patient made aware blood drawn. patient has all safety precautions in place. call light is with patient. educated to use call light for assistance.
[2019-09-09 09:43] VITALS: BP_SYST 126
[2019-09-09 11:15] VITALS: BP_SYST 126
[2019-09-09 12:14] LABS: BASOPHILS # (AUTO) 0.2 K/uL (0.0-0.2); BASOPHILS % (AUTO) 2.4 % (0.0-2.0); EOSINOPHILS # (AUTO) 0.2 K/uL (0.0-0.4); EOSINOPHILS % (AUTO) 2.6 % (0.0-4.0); HEMATOCRIT 24.1 % (36-54); HEMOGLOBIN 8.3 g/dL (14.0-18.0); LYMPHOCYTES # (AUTO) 0.6 K/uL (1.0-5.5); LYMPHOCYTES % (AUTO) 7.6 % (20.5-51.5); MEAN CORPUSCULAR HEMOGLOBIN 31 pg (27-31); MEAN CORPUSCULAR HGB CONC 35 % (32-36); MEAN CORPUSCULAR VOLUME 91 fL (79.0-98.0); MONOCYTES # (AUTO) 0.7 K/uL (0.0-1.0); MONOCYTES % (AUTO) 8.1 % (1.7-9.3); NEUTROPHILS # (AUTO) 6.4 K/uL (1.8-7.7); NEUTROPHILS % (AUTO) 79.3 % (40.0-70.0); PLATELET COUNT (AUTO) 437 K/uL (130-430); RED BLOOD CELL COUNT(AUTO) 2.65 MIL/uL (4.2-6.2); RED CELL DISTRIBUTION WIDTH 14.5 % (9.0-15.0); WHITE BLOOD COUNT (AUTO) 8.1 K/uL (4.8-10.8)
--- NOTE | 2019-09-09 12:28 | NUR ---
Dr. quinonez paging Dr. quinonez hemoglobin came back 8.3. patient is sitting in bed, eating lunch at this time. Patient has all safety precautions in place. call light is with him educated to use for assistance.
--- NOTE | 2019-09-09 12:35 | NUR ---
Dr. Blunt called back states still ok to discharge patient. patient made aware.
[2019-09-09 12:39] VITALS: BP_SYST 123
--- NOTE | 2019-09-09 13:05 | NUR ---
DISCHARGE PATIENT DISCHARGED, OK PER . PATIENT IS AWAKE AND ALERT PATIENTS MOTHER AT BEDSIDE. PATIENT'S IV CATHETER REMOVED, CATHETER INTACT, APPLIED GAUZE AND TAPE TO INSERTION SITE. ID BANDS REMOVED. PATIENT EDUCATED ON DISCHARGE PAPER WORK NO FURTHER QUESTIONS. PATIENT STATES HE HAS A HEMODIALYSIS APPOINTMENT AT 1500. PATIENT HAS ALL BELONGINGS WITH HIM. PATIENT TRANSPORTED VIA WHEELCHAIR IN TO CAR.
== END 2019-09-09 13:05 | disposition home or self-care (01) | DRG 811 ==
LOC: SED 12:09 → STU 14:05
PROVIDERS: ADMIT Internal Medicine Hospice and Palliative Medicine; ATTEND Internal Medicine Hospice and Palliative Medicine
PROC: 30233N1 Transfusion of Nonautologous Red Blood Cells into Peripheral Vein, Percutaneous Approach (ICD-10-PCS; principal; 2019-09-08)
DX: D64.9 Anemia, unspecified (principal); N18.6 End stage renal disease; D47.Z2 Castleman disease; D47.9 Neoplasm of uncertain behavior of lymphoid, hematopoietic and related tissue, unspecified; E83.51 Hypocalcemia; Z99.2 Dependence on renal dialysis; Z88.1 Allergy status to other antibiotic agents
CPT/HCPCS: 36415; 71045; 80053; 84484; 85025; 86710; 86870; 86886; 86900; 86901; 86920; 87081; 93005; 96374; 99285; G0378; J2405; P9021

== ENCOUNTER 2019-10-18 00:53 | Inpatient (IN) | payer OTHER, MEDICAID ==
[~2019-10-18] VITALS: Ht 165.1 cm; Wt 50.6 kg
[2019-10-18 00:58] VITALS: BP_SYST 148
--- NOTE | 2019-10-18 01:09 | NUR ---
Pt placed to ER bed 03, to gown, to manufacturing director. Pt c/o constant sharp shooting C/P with SOB and Abdominal Pain x 6 days. Pain worse with ambulation, improves with sitting and laying.
--- NOTE | 2019-10-18 01:14 | NUR ---
Placed in room 2 . Placed on bakery sales clerk, blood pressure machine and pulse oximeter. To gown for exam. Side rails up.
--- NOTE | 2019-10-18 01:21 | NUR ---
Pt presents to ER with c/o chest pain, abdominal pain and SOB. Pt states chest pain and abdominal pain began 6 days ago. Pt states chest and abdominal pain is 8/10 when sitting or laying down and when up and active, pt states pain is 10/10. Pt states pain is sharp and non radiating. Pt states "I feel like I cannot catch my breath." Upon assessment, clear bilateral lungs with no use of accessory muscles. Pt oxygen saturation on room air is 99%. Will continue to monitor.
--- NOTE | 2019-10-18 01:27 | NUR ---
# 20 gauge angiocath placed to R AC. Use of asceptic technique. Opsite placed over site. Blood return noted. Blood for lab drawn from site. Flushed with 10 cc of normal saline. No evidence of infiltration noted. Patient tolerated well.
--- NOTE | 2019-10-18 01:34 | NUR ---
ER Dr. Lamb at bedside examining patient.
[2019-10-18 02:01] LABS: ANION GAP 15 (5-15); CALCIUM 7.6 mg/dL (8.4-11.0); CHLORIDE 104 mmol/L (98-107); GLUCOSE 113 mg/dL (70-99); POTASSIUM 5.7 mmol/L (3.5-5.1); SODIUM SERUM 135 mmol/L (136-145); UREA NITROGEN, BLOOD 94 mg/dL (8-21)
[2019-10-18 02:12] LABS: ALANINE AMINOTRANSFERASE 25 U/L (12-78); ALBUMIN 1.9 g/dL (3.4-4.8); ASPARTATE AMINOTRANSFERASE 22 U/L (10-37); TOTAL BILIRUBIN 0.4 mg/dL (0.0-1.0)
[2019-10-18 02:18] LABS: GFR AFRICAN AMERICAN 7 mL/min (>90)
[2019-10-18 02:20] LABS: BASOPHILS # (AUTO) 0.2 K/uL (0.0-0.2); BASOPHILS % (AUTO) 2.6 % (0.0-2.0); EOSINOPHILS # (AUTO) 0.2 K/uL (0.0-0.4); LYMPHOCYTES # (AUTO) 1.2 K/uL (1.0-5.5); LYMPHOCYTES % (AUTO) 15.2 % (20.5-51.5); MEAN CORPUSCULAR HEMOGLOBIN 31 pg (27-31); MEAN CORPUSCULAR HGB CONC 34 % (32-36); MEAN CORPUSCULAR VOLUME 91 fL (79.0-98.0); MONOCYTES # (AUTO) 0.6 K/uL (0.0-1.0); NEUTROPHILS # (AUTO) 5.6 K/uL (1.8-7.7); PLATELET COUNT (AUTO) 373 K/uL (130-430); RED CELL DISTRIBUTION WIDTH 14.9 % (9.0-15.0); WHITE BLOOD COUNT (AUTO) 7.9 K/uL (4.8-10.8)
[2019-10-18 02:21] LABS: CREATININE 10.92 mg/dL (0.55-1.30)
[2019-10-18 02:23] LABS: HEMOGLOBIN 6.7 g/dL (14.0-18.0)
[2019-10-18] MEDS ORDERED: ASPIRIN 81 MG TAB.CHEW PO ONE (02:45)
[2019-10-18] MEDS ORDERED: NITROGLYCERIN LINGUAL 400 mCg/SPRAY SL PRN (02:45)
--- NOTE | 2019-10-18 03:00 | NUR ---
Pt medicated per MD orders. Pt tolerated well. Will continue to monitor.
--- NOTE | 2019-10-18 03:03 | NUR ---
Pt states, "I don't take any medications." Medication reconciliation completed with information provided by patient. Any prior medication reconciliation on file was reviewed and corrected.
[2019-10-18] MEDS ORDERED: ASPIRIN 81 MG TAB.CHEW ONE (03:04)
[2019-10-18] MEDS ORDERED: NITROGLYCERIN LINGUAL 400 mCg/SPRAY ONE (03:05)
[2019-10-18] MEDS ORDERED: LORazepam 2 MG/ML VIAL IVP ONE ×2 (03:30→04:30)
--- NOTE | 2019-10-18 03:59 | NUR ---
Patient will be admitted to [facility]. Admitted to TELEMETRY unit. Will go to room 100A. Belongings list completed. Complete and up to date summary report printed. SBAR report to be given at bedside with opportunity for questions.
[2019-10-18] MEDS ORDERED: NITROGLYCERIN 1 INCH (GM) OINT. ONE (04:21)
[2019-10-18] MEDS ORDERED: FUROSEMIDE 40 MG/4 ML VIAL ONE (04:23)
--- NOTE | 2019-10-18 04:28 | NUR ---
Transfer to Telemetry room 100A via ACLS protocol. Licensed nurse present. IV present no signs or symptoms of infiltration.
[2019-10-18] MEDS ORDERED: FUROSEMIDE 100 MG/10 ML VIAL IVP SCH (04:30)
[2019-10-18] MEDS ORDERED: NITROGLYCERIN 1 INCH (GM) OINT. TP SCH (04:30)
--- NOTE | 2019-10-18 04:41 | NUR ---
ADMISSION NOTE Received patient from ER via adriel, received report from SHAHZAD SQUIRES. Patient admitted with diagnosis of CHEST PAIN. Patient oriented to hospital routine, call light, toileting and safety-patient verbalized understanding.
[2019-10-18 05:13] VITALS: BP_SYST 128
--- NOTE | 2019-10-18 05:14 | NUR ---
CONSULT: CONSULT CALLED FOR DR. PADILLA I SPOKE WITH KRYSTIN MCDANIEL REASON FOR CONSULT: CKD REQUESTING CONSULT: DR. WELLS OPERATIONAL ASSISTANT PHONE NUMBER: [phone]
--- NOTE | 2019-10-18 05:17 | NUR ---
CONSULT: CONSULT CALLED FOR I SPOKE WITH KRYSTIN MCDANIEL REASON FOR CONSULT: CHEST PAIN REQUESTING CONSULT: [phone]
[2019-10-18 06:20] LABS: BILIRUBIN,URINE NEGATIVE (NEGATIVE); BLOOD, URINE 3+ (NEGATIVE); CLARITY/URINE CLEAR (CLEAR); COLOR,URINE YELLOW (YELLOW); GLUCOSE,URINE 1+ (NEGATIVE); KETONES,URINE NEGATIVE (NEGATIVE); LEUKOCYTE ESTERASE ,URINE NEGATIVE (NEGATIVE); NITRITE, URINE NEGATIVE (NEGATIVE); PROTEIN URINE 3+ (NEGATIVE); UROBILINOGEN,URINE 0.2 (0.2-1.0)
[2019-10-18 06:30] LABS: BACTERIA,URINE FEW /HPF (None Seen)
--- NOTE | 2019-10-18 06:50 | NUR ---
CLOSING NOTES Patient is resting in bed, eyes closed, breathing evenly and nonlabored on room air. Vital signs stable, no s/s of distress, no other needs at this time. Will endorse care to morning shift RN.
[2019-10-18] MEDS ORDERED: FUROSEMIDE 40 MG/4 ML VIAL IVP SCH (06:57)
[2019-10-18 08:00] VITALS: BP_SYST 130
--- NOTE | 2019-10-18 08:00 | NUR ---
initial notes rec patient asleep but arousable to stimuli. ivl on the r ac intact. no infiltration noted. resp easy and unlabored. no sob noted. bed to the lowest position and side rails up and locked . call light within reached and knows when to call for assistance. will continue to monitor patient.
[2019-10-18] MEDS ORDERED: CARVEDILOL 6.25 MG TABLET (COREG) PO ONE (10:00)
--- NOTE | 2019-10-18 10:00 | NUR ---
rounds sleeps at intervals. no osb noted. call light within reached.
[2019-10-18 11:02] VITALS: BP_SYST 130
--- NOTE | 2019-10-18 12:30 | NUR ---
rounds pt eating lunch. no sob noted. call light within reached. no sob noted.
--- NOTE | 2019-10-18 13:41 | NUR ---
rounds seen by jason and with order.
[2019-10-18 13:46] LABS: TOTAL IRON BIND. CAPACITY 163 ug/dL (250-450)
[2019-10-18] MEDS ORDERED: SODIUM POLYSTYRENE SULFONATE 15 GM/60 ML UDBTL PO ONE (14:00)
[2019-10-18 15:03] VITALS: BP_SYST 140
--- NOTE | 2019-10-18 17:09 | NUR ---
rounds dr quinonez came and saw patient. waiting for him to call back since pt wants lidocaine ointment prior to dialysis.
[2019-10-18] MEDS ORDERED: cloNIDine HCL 0.1 MG TABLET PO PRN (17:30)
--- NOTE | 2019-10-18 18:39 | NUR ---
closing notes speak with nsg shed workers supervisor and stated dialysis nurse will be here at 1900. instructed patient re blood transfusion during dialysis. dr quinonez was called since patiuent wants lidcaine ointment prior to dialysis. stable and needs attended.
--- NOTE | 2019-10-18 19:30 | NUR ---
OPENING NOTE RECEIVED CARE OF PT AND SBAR REPORT. PT IS AAOX4, RESTING IN BED, NO S/S OF ACUTE DISTRESS. BREATHING IS UNLABORED TO ROOM AIR. NO PAIN OR DISCOMFORT. PT REQUESTING TO HAVE LIDOCAINE BEFORE DIALYSIS TONIGHT, TO [facility]. PT ORIENTED TO USE OF CALL LIGHT AND ENCOURAGED TO CALL FOR ANY ASSISTANCE. SAFETY PRECAUTIONS ARE IN PLACE: BED IS LOCKED IN LOWEST POSITION, SIDE RAILS UP X2, CALL LIGHT IS WITH PT, BED ALARM ON. WILL MONITOR.
[2019-10-18 20:00] VITALS: BP_SYST 134
--- NOTE | 2019-10-18 20:04 | NUR ---
Paged Dr. Finch, rn lactation for Dr. Lozano. s/w Phyllis
--- NOTE | 2019-10-18 20:13 | NUR ---
SPOKE TO DR. GONZALEZ REGARDING PT'S REQUEST FOR LIDOCAINE PRIOR TO HEMODIALYSIS. NEW ORDER RECEIVED. WILL CARRY OUT.
[2019-10-18] MEDS ORDERED: CARVEDILOL 6.25 MG TABLET (COREG) PO SCH (21:00)
[2019-10-18] MEDS ORDERED: LIDOCAINE JELLY 5 ML TUBE MM ONE (21:00)
[2019-10-18] MEDS: CARVEDILOL 6.25 MG TABLET (COREG) PO SCH (21:08)
[2019-10-19 00:06] VITALS: BP_SYST 136
--- NOTE | 2019-10-19 00:45 | NUR ---
Paged Dr. Colon s/w Jane
--- NOTE | 2019-10-19 00:50 | NUR ---
SPOKE TO DR. WELLS REGARDING PT'S REQUEST FOR ATIVAN. NEW ORDER RECEIVED. WILL IMPLEMENT.
[2019-10-19] MEDS ORDERED: LORazepam 2 MG/ML VIAL IVP PRN (01:00)
--- NOTE | 2019-10-19 01:48 | NUR ---
ANXIETY/ATIVAN PT REPORTING ANXIETY. ATIVAN 0.5 MG IVP ADMINISTERED ORDERED PRN. MEDICATION ACTIONS AND POTENTIAL SIDE EFFECTS DISCUSSED. PT VERBALIZED UNDERSTANDING. NO S/S OF DISTRESS. SAFETY MAINTAINED. WILL MONITOR.
--- NOTE | 2019-10-19 03:55 | NUR ---
RESTING PT RESTING IN BED, NO S/S OF ACUTE DISTRESS, VISIBLE RISE AND FALL OF CHEST TO ROOM AIR, NO SIGN OF PAIN OR DISCOMFORT. SAFETY PRECAUTIONS MAINTAINED. WILL MONITOR.
--- NOTE | 2019-10-19 04:33 | NUR ---
Consultation Paged Reason for Consultation: Anemia Was consult called: Y Person who was notified: Alfredo Consulting Physician: Caity Monae Agricultural Engineer Phone Ordering Physician: Dr. Colon
--- NOTE | 2019-10-19 05:16 | NUR ---
LASIX SCHEDULED LASIX ADMINISTERED ORDERED. VSS. MEDICATION AND POTENTIAL SIDE EFFECTS EXPLAINED. SAFETY PRECAUTIONS REMAIN IN PLACE. WILL MONITOR.
--- NOTE | 2019-10-19 06:26 | NUR ---
CLOSING NOTE PT IS RESTING IN BED, NO S/S OF ACUTE DISTRESS. BREATHING IS UNLABORED TO ROOM AIR. NO PAIN OR DISCOMFORT. SAFETY PRECAUTIONS ARE IN PLACE: BED IS LOCKED IN LOWEST POSITION, SIDE RAILS UP X2, CALL LIGHT IS WITH PT, BED ALARM ON. WILL ENDORSE CARE TO DAY SHIFT RN.
[2019-10-19 07:33] LABS: BASOPHILS # (AUTO) 0.1 K/uL (0.0-0.2); EOSINOPHILS # (AUTO) 0.2 K/uL (0.0-0.4); EOSINOPHILS % (AUTO) 3.7 % (0.0-4.0); HEMATOCRIT 23.3 % (36-54); LYMPHOCYTES # (AUTO) 0.9 K/uL (1.0-5.5); LYMPHOCYTES % (AUTO) 13.5 % (20.5-51.5); MEAN CORPUSCULAR HEMOGLOBIN 30 pg (27-31); MEAN CORPUSCULAR HGB CONC 34 % (32-36); MEAN CORPUSCULAR VOLUME 88 fL (79.0-98.0); MONOCYTES # (AUTO) 0.6 K/uL (0.0-1.0); MONOCYTES % (AUTO) 9.2 % (1.7-9.3); NEUTROPHILS # (AUTO) 4.8 K/uL (1.8-7.7); NEUTROPHILS % (AUTO) 71.6 % (40.0-70.0); PLATELET COUNT (AUTO) 344 K/uL (130-430); RED BLOOD CELL COUNT(AUTO) 2.65 MIL/uL (4.2-6.2); RED CELL DISTRIBUTION WIDTH 14.7 % (9.0-15.0); WHITE BLOOD COUNT (AUTO) 6.6 K/uL (4.8-10.8)
[2019-10-19 08:00] VITALS: BP_SYST 118
--- NOTE | 2019-10-19 08:00 | NUR ---
initial notes rec patient asleep but arousable to stimuli. ivl on the r ac intact/ no infiltration noted. resp easy and unlabored. no sob noted. av shunt on the l arm intact with good bruit. bed to the lowest position and side rails up and locked. call light withn reached and knows when to call for assistance. denies pain. will continue to monitor patient.
[2019-10-19 08:24] LABS: CALCIUM 7.2 mg/dL (8.4-11.0)
[2019-10-19 08:25] LABS: CREATININE 5.37 mg/dL (0.55-1.30); TOTAL BILIRUBIN 0.7 mg/dL (0.0-1.0)
[2019-10-19 08:26] LABS: ALBUMIN 1.5 g/dL (3.4-4.8)
[2019-10-19 08:47] LABS: THYROID STIMULATING HORMONE 2.88 uIu/mL (0.36-3.74)
[2019-10-19] MEDS: CARVEDILOL 6.25 MG TABLET (COREG) PO SCH (08:54)
--- NOTE | 2019-10-19 10:00 | NUR ---
rounds due meds given and krystian well. watrad ior dr arnold to come and d.c patient
[2019-10-19] MEDS ORDERED: FUROSEMIDE 40 MG/4 ML VIAL IVP ONE (10:15)
[2019-10-19 12:00] VITALS: BP_SYST 115
[2019-10-19] MEDS ORDERED: EPOETIN ALFA 10,000 UNITS/ML VIAL IVP ONE (12:00)
--- NOTE | 2019-10-19 12:00 | NUR ---
rounds patient is eating lunch at bedside. no sob noted. call light within reached. continue to watch tv at intervals.
[2019-10-19] MEDS ORDERED: CARV12.548 PO (12:14)
[2019-10-19] MEDS ORDERED: NEPH PO (12:15)
[2019-10-19] MEDS ORDERED: DOXY100C PO (12:19)
[2019-10-19] MEDS ORDERED: DOXYCYCLINE HYCLATE 100 MG CAPSULE PO ONE (12:45)
[2019-10-19 13:00] VITALS: BP_SYST 115
--- NOTE | 2019-10-19 14:30 | NUR ---
closing notes pt was discharged after seen by dr quinonez . exit care was given. instructed to scrap picker prescription at pt's pharmacy, and also appt to his pmd and scheduled dialysis. ivl and id band was removed. was wheeled outside via wheelcahir. pt stable and needs attned. accompanied by his dad. no sob noted.
[2019-10-19] MEDS ORDERED: CARVEDILOL 6.25 MG TABLET (COREG) PO SCH (21:00)
[2019-10-19 21:33] LABS: NEUTROPHILS % (AUTO) 71.2 % (40.0-70.0)
[2019-10-20] MEDS ORDERED: DOXYCYCLINE HYCLATE 100 MG CAPSULE PO SCH (09:00)
== END 2019-10-19 14:30 | disposition home or self-care (01) | DRG 291 ==
LOC: SED 00:53 → STU 03:43
PROVIDERS: ADMIT Internal Medicine; ATTEND Internal Medicine
PROC: 30233N1 Transfusion of Nonautologous Red Blood Cells into Peripheral Vein, Percutaneous Approach (ICD-10-PCS; principal; 2019-10-18)
PROC: 5A1D70Z Performance of Urinary Filtration, Intermittent, Less than 6 Hours Per Day (ICD-10-PCS; 2019-10-18)
DX: I50.41 Acute combined systolic (congestive) and diastolic (congestive) heart failure (principal); N18.6 End stage renal disease; I42.0 Dilated cardiomyopathy; J40 Bronchitis, not specified as acute or chronic; D63.8 Anemia in other chronic diseases classified elsewhere; E87.5 Hyperkalemia; Z92.21 Personal history of antineoplastic chemotherapy; Z99.2 Dependence on renal dialysis; Z88.1 Allergy status to other antibiotic agents; Z88.8 Allergy status to other drugs, medicaments and biological substances; Z90.49 Acquired absence of other specified parts of digestive tract; Z79.899 Other long term (current) drug therapy
CPT/HCPCS: 36415; 71045; 80053; 80061; 81000-TC; 83540-TC; 83550-TC; 83880; 84443-TC; 84484; 85025; 86870; 86886; 86900; 86901; 86920; 87081; 90935; 93005; 93306; 96374; 96375; 96376; 99285; G0378; J0885; J1940; J2060; J7030; J7050; P9021

== ENCOUNTER 2019-10-24 17:45 | Inpatient (IN) | payer OTHER, MEDICAID ==
[~2019-10-24] VITALS: Ht 165.1 cm; Wt 51.7 kg
[~2019-10-24 17:45] MED LIST changes: +CARV12.548 PO; +DOXY100C PO; -FERR-69 PO; +NEPH PO
[2019-10-24 18:24] VITALS: BP_SYST 112
[2019-10-24 19:37] LABS: BASOPHILS # (AUTO) 0.2 K/uL (0.0-0.2); BASOPHILS % (AUTO) 2.5 % (0.0-2.0); EOSINOPHILS # (AUTO) 0.3 K/uL (0.0-0.4); EOSINOPHILS % (AUTO) 5.6 % (0.0-4.0); HEMOGLOBIN 7.5 g/dL (14.0-18.0); LYMPHOCYTES % (AUTO) 15.7 % (20.5-51.5); MEAN CORPUSCULAR HEMOGLOBIN 30 pg (27-31); MEAN CORPUSCULAR HGB CONC 33 % (32-36); MEAN CORPUSCULAR VOLUME 91 fL (79.0-98.0); MONOCYTES # (AUTO) 0.6 K/uL (0.0-1.0); MONOCYTES % (AUTO) 9.7 % (1.7-9.3); NEUTROPHILS % (AUTO) 66.5 % (40.0-70.0); PLATELET COUNT (AUTO) 301 K/uL (130-430); RED BLOOD CELL COUNT(AUTO) 2.52 MIL/uL (4.2-6.2); RED CELL DISTRIBUTION WIDTH 14.8 % (9.0-15.0); WHITE BLOOD COUNT (AUTO) 6.1 K/uL (4.8-10.8)
--- NOTE | 2019-10-24 19:52 | NUR ---
Placed in room 8 . Placed on cardiac monitor technician, blood pressure machine and pulse oximeter. To gown for exam. Side rails up. Report given to RADHA PIKE.
--- NOTE | 2019-10-24 19:58 | NUR ---
Pt c/o RUQ abdomen pain with Nausea, Diarrhea, Light headedness x 2 days.
[2019-10-24 20:01] LABS: ANION GAP 13 (5-15); CHLORIDE 100 mmol/L (98-107); GLUCOSE 91 mg/dL (70-99); POTASSIUM 5.2 mmol/L (3.5-5.1); SODIUM SERUM 133 mmol/L (136-145); UREA NITROGEN, BLOOD 78 mg/dL (8-21)
[2019-10-24 20:14] LABS: ALANINE AMINOTRANSFERASE 23 U/L (12-78); ALBUMIN 1.7 g/dL (3.4-4.8); AMYLASE 54 U/L (0-100); ASPARTATE AMINOTRANSFERASE 23 U/L (10-37); BILIRUBIN,DIRECT 0.2 mg/dL (0.0-0.3); LIPASE 136 U/L (73-393); TOTAL BILIRUBIN 0.4 mg/dL (0.0-1.0)
[2019-10-24 20:18] LABS: GFR AFRICAN AMERICAN 7 mL/min (>90)
[2019-10-24 20:24] LABS: CALCIUM 6.8 mg/dL (8.4-11.0); CREATININE 10.17 mg/dL (0.55-1.30)
[2019-10-24] MEDS ORDERED: NACL 0.9% 1,000 ML IV ONE (20:30)
[2019-10-24] MEDS ORDERED: MORPHINE 4 MG/ML INJ. SYRINGE IVP ONE (20:30)
--- NOTE | 2019-10-24 21:09 | NUR ---
Pt to CT via W/C.
--- NOTE | 2019-10-24 21:15 | NUR ---
Pt returns from CT.
--- NOTE | 2019-10-24 22:00 | NUR ---
Pt resting quietly, even and non-labored respirations, NAD.
[2019-10-24] MEDS ORDERED: metroNIDAZOLE 500 mg/NS 100 ML IV ONE (22:30)
--- NOTE | 2019-10-24 22:56 | NUR ---
Patient will be admitted to care of Natividad Rhodes Admitted to Med/Surg unit. Will go to room 107A. Belongings list completed. Complete and up to date summary report printed. SBAR report to be given at bedside with opportunity for questions.
[2019-10-24] MEDS ORDERED: AMPICILLIN SODIUM/SULBACTAM NA 3 GM in NS 100 ML IV ONE (23:00)
--- NOTE | 2019-10-24 23:05 | NUR ---
ADMIT NOTE Received pt from ER to the floor with a diagnosis of CHOLECYSTITIS. Admission process initiated. patient oriented to pain management, safety and call light-teach back done.
[2019-10-24 23:22] VITALS: BP_SYST 107
[2019-10-24] MEDS ORDERED: AMPICILLIN SODIUM/SULBACTAM NA 3 GM VIAL ONE (23:32)
--- NOTE | 2019-10-24 23:50 | NUR ---
ADMISSION PHYSICAL ASSESSMENT NOTES; took over care from nurse Jerad, pt. awake, alert and oriented. oriented on use of call light and bed control. moves all extremities. pt. admitted due to abdominal pain with diarrhea for about a week . Dx Cholecystitis, kept NPO as ordered. pt. on dialysis TTHS with AV shunt on left arm. IV antibiotic infusing from ER, via rt. arm, main IVF of D5 1/2 NS @ 100 cc/hr. pt. wants me to call MD for IV Ativan order, pt. gets anxious. pt. does not want o wear hospital gown, he keeps his own clothing (shirt and sweat pants). call light within reach.
[2019-10-25] MEDS: D5/0.45 NS 1,000 ML IV SCH ×3 (00:03→20:57)
--- NOTE | 2019-10-25 00:15 | NUR ---
NOTES: asked tech to call Dr. Jo, pt. informed.
--- NOTE | 2019-10-25 01:00 | NUR ---
NOTES: still waiting for MD to call back, another call made. pt. still awake.
[2019-10-25] MEDS ORDERED: MORPHINE 2 MG/ML INJ. SYRINGE IVP PRN ×2 (02:45→10:00)
[2019-10-25] MEDS ORDERED: MORPHINE 4 MG/ML INJ. SYRINGE IVP PRN ×2 (02:45→10:00)
--- NOTE | 2019-10-25 02:45 | NUR ---
NOTES: Dr. Jo finally called and informed him about pt. wants IV Ativan and prn for pain as well.
[2019-10-25] MEDS: LORazepam 2 MG/ML VIAL IVP PRN ×2 (03:17→20:57)
--- NOTE | 2019-10-25 03:27 | NUR ---
NOTES: 'pt. still awake watching tv, medicated with IV Ativan as ordered. call light within reach.no c/o abdominal pain. remain NPO.
--- NOTE | 2019-10-25 05:30 | NUR ---
NOTES: pt. checked and sleeping soundly.
--- NOTE | 2019-10-25 06:30 | NUR ---
CLOSING NOTES; pt. still asleep. IV infusing. Dr. Ramos for consult today, kept NPO. no c/o pain at this time. call light within reach. for further care, assistance and observation.
--- NOTE | 2019-10-25 06:49 | NUR ---
Nutrition Update Nigel Scale 17 noted. Pt admitted for Cholecystitis Diet: NPO BMI: 19 kg/m2 RD to follow per nutrition care standards.
--- NOTE | 2019-10-25 08:00 | NUR ---
RECEIVED AWAKE AND IN NO C/O DISCOMFORT.NPO AND IV INFUSING AT 100 HR.UP AMB IN ROOM.VSS.DIALYSIS LAV SHUNT INTACT.WILL CONTINUE TO MONITOR AND CALL JACKSON IN PLACE
--- NOTE | 2019-10-25 09:53 | NUR ---
CONSULT SURGERY CHOLECYSTITIS DR TUSHAR ROY IS HAND COPER [phone] S/W BRIDGETTE @ DR ROY'S OFFICE
[2019-10-25] MEDS ORDERED: ONDANSETRON HCL 4 MG/2 ML VIAL IVP PRN (10:00)
--- NOTE | 2019-10-25 10:39 | NUR ---
GI and Nephro consults called: for Dr. Rae, regarding cholecystitis, ordered by Dr. Natividad Jo, spoke with Taniya. for Dr. Finch. Dr. Lozano answered the phone at the office so I informed him of consult. He said he will come see the patient.
[2019-10-25 12:00] VITALS: BP_SYST 116
--- NOTE | 2019-10-25 14:45 | NUR ---
SS NOTES: FORESTRY EXTENSION SPECIALIST was referred by CM to see patient for DCPA. Demographic information confirmed. FORESTRY EXTENSION SPECIALIST met with patient at bedside. Pt was alert and oriented x4, cooperative with depressed mood, soft speech and average eye contact. Pt is a 44 y/o male who came in via ED for possible gallstones. Pt lives at home with parents and his 2 children, ages 14 and 16 (children's mother is not involved with them). Pt is independent with his ADL's but verbalized that he is "weaker" and "needing help more". Pt does not own any DME's and lives in a one stewart home with no steps to get to the front door. Pt verbalized receiving support form his family at home. Pt's only source of income is his SSI. Pt denies any history of current mental health and no substance use/abuse. Pt states he goes to [facility] 3x week and drives himself there. Pt does not have any advanced directive or POLST formulated and stated he would want his sister to make decisions if he is unable. FORESTRY EXTENSION SPECIALIST offered to provide him with paperwork on Advanced Directive or POLST; pt refused and stated "I am not ready for that". If SNF is indicated for discharge, pt would want it closer to home and no preference on HHS. FORESTRY EXTENSION SPECIALIST provided pt with IHSS information sheet and re-educated pt on the importance of formulating an advanced directive, which he declined at this time. No further SS needs identified, but will remain available for resources.
[2019-10-25 16:30] VITALS: BP_SYST 110
--- NOTE | 2019-10-25 18:37 | NUR ---
REMAINS DISORIENTED AT TIMES TO PLACE AND REASON TO STAY HERE AND REORIENTED PRN.NO C/O DISCOMFORT VSS.UP AMB IN ROOM TAKING DIET WELL RESP EVEN CALL JACKSON IN PLACE Addendum: 10/25/19 at 1840 by Three specimen transporter CHARTED ON WRONG PT THIS NOTE IS FOR ROOM 113A PT
--- NOTE | 2019-10-25 18:41 | NUR ---
Has had no request for pain or nausea meds this afternoon remains npo and up amb in room iv infusing at 100 hr.to have hida scan done tomorrow.vss continue to monitor
--- NOTE | 2019-10-25 19:21 | NUR ---
report to hourly shift manager rn given
--- NOTE | 2019-10-25 19:25 | NUR ---
Pt is fully AAO x4 and resting comfortably in bed. IVF is infusing well in RFA. Pt was instructed on nothing by mouth and pt verbalized understanding. Fall and safety precautions are in place.
[2019-10-25 20:00] VITALS: BP_SYST 126
--- NOTE | 2019-10-25 20:57 | NUR ---
Ativan 1mg was given IV per pt's request for c/o anxiety. IV site is without any signs of infiltration. Pt declined bed alarm. Pt was instructed to call for assistance before getting out of bed if he feels dizzy or drowsy and pt verbalized understanding. Call light is with pt and bed is in the lowest and locked positions.
--- NOTE | 2019-10-25 23:00 | NUR ---
Pt is resting quietly in bed. IVF is infusing well in RFA. Fall and safety precautions are in place.
--- NOTE | 2019-10-26 01:00 | NUR ---
Pt is sleeping without any distress noted. IVF is infusing well in RFA.
--- NOTE | 2019-10-26 03:19 | NUR ---
Pt continues to sleep without any distress noted. IVF is infusing well in RFA. Fall and safety precautions are in place.
--- NOTE | 2019-10-26 05:36 | NUR ---
Pt is sleeping comfortably in bed. IVF is infusing well in RFA. Fall and safety precautions are in place.
--- NOTE | 2019-10-26 06:24 | NUR ---
Pt is awake and resting comfortably in bed. IVF is infusing well in RFA. Fall and safety precautions are in place. Will endorse to day shift nurse.
[2019-10-26] MEDS: D5/0.45 NS 1,000 ML IV SCH (06:55)
[2019-10-26 07:09] LABS: BASOPHILS # (AUTO) 0.1 K/uL (0.0-0.2); BASOPHILS % (AUTO) 2.3 % (0.0-2.0); EOSINOPHILS # (AUTO) 0.1 K/uL (0.0-0.4); EOSINOPHILS % (AUTO) 2.2 % (0.0-4.0); LYMPHOCYTES # (AUTO) 1.1 K/uL (1.0-5.5); LYMPHOCYTES % (AUTO) 18.7 % (20.5-51.5); MEAN CORPUSCULAR HEMOGLOBIN 31 pg (27-31); MEAN CORPUSCULAR HGB CONC 33 % (32-36); MEAN CORPUSCULAR VOLUME 95 fL (79.0-98.0); MONOCYTES # (AUTO) 0.6 K/uL (0.0-1.0); NEUTROPHILS # (AUTO) 3.9 K/uL (1.8-7.7); NEUTROPHILS % (AUTO) 66.8 % (40.0-70.0); PLATELET COUNT (AUTO) 226 K/uL (130-430); WHITE BLOOD COUNT (AUTO) 5.8 K/uL (4.8-10.8)
[2019-10-26 08:00] VITALS: BP_SYST 133
[2019-10-26 08:00] LABS: RED BLOOD CELL COUNT(AUTO) 1.95 MIL/uL (4.2-6.2)
[2019-10-26 08:06] LABS: HEMATOCRIT 18.5 % (36-54); HEMOGLOBIN 6.1 g/dL (14.0-18.0)
--- NOTE | 2019-10-26 09:30 | NUR ---
Called for critical labs of HGB 6.1 and HCT 18.5, doctor ordered 2 units of blood. Order was placed with the help of the charge nurse. Per lab, the blood will be back in about 3 hrs, coming from [place]. Patient is about to begin HD. Ashlie PIKE
[2019-10-26 10:27] LABS: ALBUMIN 1.5 g/dL (3.4-4.8); BILIRUBIN,DIRECT 0.3 mg/dL (0.0-0.3); CREATININE 10.01 mg/dL (0.55-1.30); PHOSPHORUS 8.2 mg/dL (2.7-4.5); POTASSIUM 4.5 mmol/L (3.5-5.1); TOTAL BILIRUBIN 0.5 mg/dL (0.0-1.0)
--- NOTE | 2019-10-26 10:30 | NUR ---
Lab called critical lab for Calcium 6.5, was paged, waiting for call back. Ashlie PIKE Addendum: 10/26/19 at 1507 by Les Guido RN called, calcium critical valued read back, no new changes, Ashlie PIKE
[2019-10-26 10:36] LABS: CALCIUM 6.5 mg/dL (8.4-11.0)
--- NOTE | 2019-10-26 15:11 | NUR ---
had HD and HIDA scan, he has been in radiology for the past 2 hours. Laboratory is waiting for patient to return to room so they could draw labs. Ashlie PIKE
[2019-10-26 16:52] VITALS: BP_SYST 127
[2019-10-26] MEDS ORDERED: HYDROcodone/ACETAMIN 10-325 MG TAB PO PRN (17:45)
[2019-10-26] MEDS ORDERED: HYDROcodone/ACETAMIN 5-325 MG TAB (NORCO/ VICODIN) PO PRN (17:45)
[2019-10-26 17:59] LABS: TOTAL IRON BIND. CAPACITY 126 ug/dL (250-450)
[2019-10-26 18:16] LABS: ACETAMINOPHEN < 1 ug/mL (1-30)
[2019-10-26 18:50] LABS: INR 1.7 (0.80-1.20); PROTHROMBIN TIME 16.9 SECS (9.5-12.5)
[2019-10-26 19:35] VITALS: BP_SYST 117
--- NOTE | 2019-10-26 19:40 | NUR ---
OPENING NOTES Patient is resting, no signs of acute respiratory distress observed. IVF running, dressings c/d/i. Call light within reach, bed alarm refused after patient education on importance and risks without having bed alarm on, patient verbalizes understanding. Endorsed that we are currently waiting on patient's blood. Will continue to monitor.
[2019-10-26] MEDS: NORMAL SALINE 5 ML DISP.SYRIN IVF SCH (21:14)
[2019-10-26] MEDS: LORazepam 2 MG/ML VIAL IVP PRN (21:25)
--- NOTE | 2019-10-26 21:30 | NUR ---
Patient is resting, sandwich with mayonaise provided. Will continue to monitor.
--- NOTE | 2019-10-27 00:35 | NUR ---
BT INITIATION: Consent signed per patient agreeing to administration of blood. Blood has been type and crossmatched. Blood sent from blood bank. Information on unit of blood checked against patient wristband at bedside by two nurses. All information matches. Patient or responsible libertarian informed of potential complications associated with blood transfusion. Informed of possible transfusion reaction symptoms. Aware of need to notify nurse at once of itching, shortness of breath, flushing, feeling of impending doom, or other symptoms not previously present. Vital signs taken within 5 minutes prior to initiation of transfusion. RN will remain with patient for first 15 minutes of transfusion at which time vital signs will be re-assessed.
[2019-10-27 00:55] VITALS: BP_SYST 119
--- NOTE | 2019-10-27 02:11 | NUR ---
Patient is resting, no signs of distress observed. will continue to monitor.
[2019-10-27] MEDS: LORazepam 2 MG/ML VIAL IVP PRN ×2 (04:14→22:01)
--- NOTE | 2019-10-27 04:42 | NUR ---
BT INITIATION: Consent signed per patient agreeing to administration of blood. Blood has been type and crossmatched. Blood sent from blood bank. Information on unit of blood checked against patient wristband at bedside by two nurses. All information matches. Patient or responsible republican informed of potential complications associated with blood transfusion. Informed of possible transfusion reaction symptoms. Aware of need to notify nurse at once of itching, shortness of breath, flushing, feeling of impending doom, or other symptoms not previously present. Vital signs taken within 5 minutes prior to initiation of transfusion. RN will remain with patient for first 15 minutes of transfusion at which time vital signs will be re-assessed.
--- NOTE | 2019-10-27 07:03 | NUR ---
CLOSING NOTES Patient is resting, no signs of blood transfusion reaction observed, no nausea. Blood running, dressings c/d/i. Call light within reach, bed alarm off after patient education and understanding, bed at lowest position. All needs met throughout shift. Will endorse care to oncoming shift.
[2019-10-27] MEDS: NORMAL SALINE 5 ML DISP.SYRIN IVF SCH ×3 (08:00→22:02)
[2019-10-27 11:23] VITALS: BP_SYST 123
[2019-10-27] MEDS ORDERED: MORPHINE 2 MG/ML INJ. SYRINGE IVP ONE (13:00)
[2019-10-27 15:06] VITALS: BP_SYST 124
--- NOTE | 2019-10-27 19:15 | NUR ---
CHANGE OF SHIFT; pt. resting and watching tv when received. no distress. call light within reach. will reassess later.
--- NOTE | 2019-10-27 20:15 | NUR ---
NOTES: pt. informed about the schedule procedure fro EGD, reminded to be NPO after midnight, quite anxious about it, questions asked and answered. IV lock on rt. antecubital. VS checked. AV shunt on left arm, hemodialysis TTHS. gets to the restroom, pt. ambulates. call light within reach.
--- NOTE | 2019-10-27 22:01 | NUR ---
NOTES: pt. requesting for Ativan, quite anxious. Ativan 1 mg. IVP given. repositioned self for comfort. reminded about NPO after midnight. call light at bedside. pt. needs attended.
--- NOTE | 2019-10-27 23:30 | NUR ---
NOTES: blood draw post blood transfusion and late am labs.
[2019-10-27 23:57] LABS: BASOPHILS # (AUTO) 0.1 K/uL (0.0-0.2); BASOPHILS % (AUTO) 1.3 % (0.0-2.0); EOSINOPHILS # (AUTO) 0.2 K/uL (0.0-0.4); EOSINOPHILS % (AUTO) 4.1 % (0.0-4.0); HEMATOCRIT 29.8 % (36-54); HEMOGLOBIN 9.8 g/dL (14.0-18.0); LYMPHOCYTES # (AUTO) 0.9 K/uL (1.0-5.5); LYMPHOCYTES % (AUTO) 16.4 % (20.5-51.5); MEAN CORPUSCULAR HEMOGLOBIN 30 pg (27-31); MEAN CORPUSCULAR HGB CONC 33 % (32-36); MEAN CORPUSCULAR VOLUME 91 fL (79.0-98.0); MONOCYTES # (AUTO) 0.8 K/uL (0.0-1.0); MONOCYTES % (AUTO) 13.1 % (1.7-9.3); NEUTROPHILS # (AUTO) 3.7 K/uL (1.8-7.7); NEUTROPHILS % (AUTO) 65.1 % (40.0-70.0); PLATELET COUNT (AUTO) 241 K/uL (130-430); RED BLOOD CELL COUNT(AUTO) 3.28 MIL/uL (4.2-6.2); RED CELL DISTRIBUTION WIDTH 14.9 % (9.0-15.0); WHITE BLOOD COUNT (AUTO) 5.8 K/uL (4.8-10.8)
[2019-10-28] VITALS (7 sets, daily range): BP systolic 128–143
[2019-10-28 00:18] LABS: ALBUMIN 1.4 g/dL (3.4-4.8); CREATININE 6.78 mg/dL (0.55-1.30); PHOSPHORUS 5.5 mg/dL (2.7-4.5); POTASSIUM 3.4 mmol/L (3.5-5.1); TOTAL BILIRUBIN 0.6 mg/dL (0.0-1.0)
--- NOTE | 2019-10-28 00:18 | NUR ---
NOTES: lab called for Ca level 6.1. H and H post transfusion 9.8 /29.8. will call
[2019-10-28 00:20] LABS: CALCIUM 6.1 mg/dL (8.4-11.0)
--- NOTE | 2019-10-28 00:51 | NUR ---
PAGED: I PAGED DR PRAKASH;JACK Delgado I SPOKE WITH RHONDA MCDANIEL
--- NOTE | 2019-10-28 01:00 | NUR ---
NOTES: Dr. Jo called by front desk monitor. pt. also c/o cough, no wheezing. and wants another IV Ativan, cannot go to sleep anymore after blood draw. krystian pt. will give Ativan when its due.
--- NOTE | 2019-10-28 02:10 | NUR ---
NOTES: Dr. Jo returned the call after 2nd attempt with orders.
[2019-10-28] MEDS: LORazepam 2 MG/ML VIAL IVP PRN (02:25)
--- NOTE | 2019-10-28 02:25 | NUR ---
NOTES: IV Ativan given per pt. request since unable to go back to sleep and quite anxious.
[2019-10-28] MEDS ORDERED: guaiFENesin 200 MG/10 ML UDC PO PRN (02:30)
--- NOTE | 2019-10-28 03:30 | NUR ---
NOTES: pt. checked and able to sleep now. condition observed.
[2019-10-28 04:06] LABS: HEPATITIS A AB, IgM Negative (Negative); HEPATITIS B CORE AB, IgM Negative (Negative); HEPATITIS B SURFACE AG Negative (Negative)
--- NOTE | 2019-10-28 05:30 | NUR ---
NOTES: pt. condition unchanged. still asleep.
[2019-10-28] MEDS: NORMAL SALINE 5 ML DISP.SYRIN IVF SCH ×3 (06:00→21:28)
--- NOTE | 2019-10-28 06:41 | NUR ---
CLOSING NOTES; pt. schedule for EGD, consent signed. kept NPO. IV lock patent on rt. arm. no signs of bleed. for further care and assist. call light within reach. will endorse to day shift.
--- NOTE | 2019-10-28 07:28 | NUR ---
Opening Note received bedside SBAR report from hourly shift RN, patient resting in bed, respirations even and unlabored on room air, patient is NPO awaiting EGD this morning, educated patient on use of call light and asked to call for assistance, patient verbalized understanding, call light in reach, educated patient on use of bed alarm for patient safety, patient refusing bed alarm, bed in low and locked position.
[2019-10-28 07:42] LABS: INR 1.5 (0.80-1.20); PROTHROMBIN TIME 15.3 SECS (9.5-12.5)
--- NOTE | 2019-10-28 08:25 | NUR ---
Physician Rounds Dr. Jernigan at bedside examining patient.
[2019-10-28 08:54] LABS: ALBUMIN 1.6 g/dL (3.4-4.8); BILIRUBIN,DIRECT 0.2 mg/dL (0.0-0.3); PHOSPHORUS 5.3 mg/dL (2.7-4.5); TOTAL BILIRUBIN 0.6 mg/dL (0.0-1.0)
--- NOTE | 2019-10-28 10:14 | NUR ---
RN Rounds patient resting in bed, per GI lab they will take patient for EGD around 1230, informed patient, patient denies any pain.
[2019-10-28] MEDS: fentaNYL CITRATE/PF 100 MCG/2 ML AMP ONE ×2 (10:43→12:40)
[2019-10-28] MEDS: MIDAZOLAM HCL 5 MG/5 ML VIAL ONE ×4 (10:44→12:46)
[2019-10-28] MEDS ORDERED: fentaNYL CITRATE/PF 100 MCG/2 ML AMP ONE (10:44)
[2019-10-28] MEDS ORDERED: MIDAZOLAM HCL 5 MG/5 ML VIAL ONE (10:45)
[2019-10-28] MEDS ORDERED: SIMETHICONE 40 MG/0.6 ML ML ONE (10:45)
--- NOTE | 2019-10-28 11:55 | NUR ---
to GI lab patient taken to GI lab via wheelchair for EGD, no acute distress noted.
[2019-10-28 12:04] LABS: FERRITIN 19527 ng/mL (30-400)
--- NOTE | 2019-10-28 13:28 | NUR ---
back from GI lab patient brought back to room from GI lab via wheelchair by RN, patient resting in bed, respirations even and unlabored on room air, no acute distress noted, patient denies any pain, patients family at bedside, call light in reach.
[2019-10-28] MEDS: CALCIUM CARBONATE 500 MG/ TAB.CHEW PO SCH ×2 (13:45→20:35)
--- NOTE | 2019-10-28 14:35 | NUR ---
Hemodialysis control tower operator at bedside starting hemodialysis, patient resting in bed, no acute distress noted.
[2019-10-28 16:09] LABS: ANTI NUCLEAR AB WITH REFLEX Negative (Negative)
--- NOTE | 2019-10-28 16:52 | NUR ---
RN Rounds patient receiving hemodialysis, patient resting in bed, no acute distress noted, gantry crane operator at bedside.
--- NOTE | 2019-10-28 17:53 | NUR ---
Hemodialysis hemodialysis completed by utilities service investigator, 1L out, patient resting in bed, no acute distress noted, dressing to left upper arm dialysis site clean, dry, and intact, no bleeding noted, patients family at bedside.
--- NOTE | 2019-10-28 19:07 | NUR ---
Closing Note bedside SBAR report given to receiving RN, patient resting in bed, respirations even and unlabored on room air, no acute distress noted, patient denies any pain, educated patient on use of call light and asked to call for assistance, patient verbalized understanding, call light in reach, educated patient on use of bed alarm for patient safety, patient refusing bed alarm, bed in low and locked position, care endorsed to plate worker helper RN.
--- NOTE | 2019-10-28 19:50 | NUR ---
PM SHIFT ASSESSMENT Received patient sitting up in bed, aox4, vital signs stable, denies any pain or discomfort at this time, no nausea or vomiting, IV line to right forearm intact and patent, saline locked, plan of care discussed with patient, verbalized understanding, compliant, oriented to use call light for nurse assistance, fall and safety measures in place, will monitor.
--- NOTE | 2019-10-28 20:58 | NUR ---
Paged Dr. Jo, called back and updated him on patient requesting for ativan dosage to be increased, new order for ativan 2 mg IVP, will carry out.
[2019-10-28] MEDS ORDERED: LORazepam 2 MG/ML VIAL IVP PRN (21:00)
--- NOTE | 2019-10-28 21:30 | NUR ---
RN ROUNDS Patient awake, administered ativan 2 mg IVP, educated on use and side effect of medication, patient verbalized understanding, reinforced safety precautions, patient compliant, call light within reach, will monitor.
--- NOTE | 2019-10-29 00:04 | NUR ---
RN ROUNDS Patient resting quietly in bed, breathing is even and unlabored, vitals stable. Fall and safety measures in place, call light remains within reach, will monitor.
--- NOTE | 2019-10-29 02:06 | NUR ---
RN ROUNDS Patient asleep, breathing is even and unlabored, fall and safety measures in place, call light remains within reach, will monitor.
--- NOTE | 2019-10-29 04:04 | NUR ---
RN ROUNDS Patient continues to sleep, breathing is even and unlabored, fall and safety measures in place, call light remains within reach, will monitor.
[2019-10-29 05:15] LABS: ALPHA-1-ANTITRYPSIN, S 174 mg/dL (101-187); CERULOPLASMIN 35.6 mg/dL (16.0-31.0)
[2019-10-29] MEDS: NORMAL SALINE 5 ML DISP.SYRIN IVF SCH ×2 (05:34→14:52)
--- NOTE | 2019-10-29 06:08 | NUR ---
RN ROUNDS Patient continues to sleep, breathing is even and unlabored, IV line intact and patent, saline locked, fall and safety measures maintained through out the shift, call light remains within reach, will monitor until report given to am nurse.
[2019-10-29 07:29] LABS: BASOPHILS # (AUTO) 0.1 K/uL (0.0-0.2); BASOPHILS % (AUTO) 1.6 % (0.0-2.0); EOSINOPHILS # (AUTO) 0.3 K/uL (0.0-0.4); EOSINOPHILS % (AUTO) 3.9 % (0.0-4.0); HEMATOCRIT 30.1 % (36-54); HEMOGLOBIN 10.2 g/dL (14.0-18.0); LYMPHOCYTES # (AUTO) 1.2 K/uL (1.0-5.5); LYMPHOCYTES % (AUTO) 14.4 % (20.5-51.5); MEAN CORPUSCULAR HEMOGLOBIN 31 pg (27-31); MEAN CORPUSCULAR HGB CONC 34 % (32-36); MEAN CORPUSCULAR VOLUME 91 fL (79.0-98.0); MONOCYTES # (AUTO) 0.9 K/uL (0.0-1.0); MONOCYTES % (AUTO) 11.1 % (1.7-9.3); NEUTROPHILS # (AUTO) 5.7 K/uL (1.8-7.7); PLATELET COUNT (AUTO) 238 K/uL (130-430); RED BLOOD CELL COUNT(AUTO) 3.33 MIL/uL (4.2-6.2); RED CELL DISTRIBUTION WIDTH 14.8 % (9.0-15.0)
[2019-10-29 07:37] LABS: ALBUMIN 1.5 g/dL (3.4-4.8); CREATININE 4.64 mg/dL (0.55-1.30); PHOSPHORUS 3.6 mg/dL (2.7-4.5); POTASSIUM 3.4 mmol/L (3.5-5.1); TOTAL BILIRUBIN 0.7 mg/dL (0.0-1.0)
[2019-10-29 07:43] LABS: WHITE BLOOD COUNT (AUTO) 8.3 K/uL (4.8-10.8)
[2019-10-29 08:02] VITALS: BP_SYST 125
--- NOTE | 2019-10-29 08:30 | NUR ---
OPENING NOTES, RECEIVED PT IN BED, PT IS AAOX4, DENIES PAIN. NO SOB, NO RESP DISTRESS. SAFETY PRECAUTION IN PLACE. CALL LIGHT IN EASY REACH. BED IN LOW POSITION. ENCOURAGED TO CALL FOR ASSIST AND PAIN MEDS OR ANY CONCERNS. WILL CONT TO MONITOR.
[2019-10-29] MEDS: CALCIUM CARBONATE 500 MG/ TAB.CHEW PO SCH (08:31)
--- NOTE | 2019-10-29 11:18 | NUR ---
COMPLETE BED CHANGED DONE.
[2019-10-29 12:00] VITALS: BP_SYST 130
[2019-10-29 12:13] LABS: LIVER-KIDNEY MICROSOMAL AB 2.1 Units (0.0-20.0)
--- NOTE | 2019-10-29 15:20 | NUR ---
DR PADILLA WAS HERE AND SEEN PT.
--- NOTE | 2019-10-29 15:50 | NUR ---
Dietitian Recommendations * Recommend continuing regular, renal diet * PM snacks daily (peanut butter and jelly sandwich w/ 4 oz of whole milk) LP, RD Please refer to Nutrition Assessment for details. Addendum: 10/29/19 at [address] Amended: Links added.
--- NOTE | 2019-10-29 16:00 | NUR ---
PATIENT IN BED, RESTING , NO C/O PAIN. FAMILY AT BEDSIDE. WILL CONT TO MONITOR.
[2019-10-29] MEDS ORDERED: PANT20TA2 PO (16:47)
[2019-10-29 17:00] VITALS: BP_SYST 132
[2019-10-29] MEDS ORDERED: POTASSIUM CHLORIDE 20 MEQ TAB.PRT.SR PO ONE (17:00)
[2019-10-29 17:48] VITALS: BP_SYST 132
--- NOTE | 2019-10-29 18:44 | NUR ---
D/C Patient Patient given medication reconciliation form and D/C instructions. Exit Care provided. Patient verbalized understanding. MD discussed with patient the results and treatment provided. Ambulatory with steady gait for discharge to home. Patient in stable condition, ID band removed. IV catheter removed, intact and dressing applied, no active bleeding. Rx of PROTONIX given. Patient educated on pain management. All belongings sent with patient.
[2019-11-01 12:00] LABS: ANTI-SMOOTH MUSCLE AB 61 Units (0-19)
== END 2019-10-29 18:44 | disposition home or self-care (01) | DRG 377 ==
LOC: SED 17:45 → SMU 22:44
PROVIDERS: ADMIT Preventive Medicine Preventive Medicine/Occupational Environmental Medicine; ATTEND Preventive Medicine Preventive Medicine/Occupational Environmental Medicine
PROC: 5A1D70Z Performance of Urinary Filtration, Intermittent, Less than 6 Hours Per Day (ICD-10-PCS; 2019-10-26)
PROC: 30233N1 Transfusion of Nonautologous Red Blood Cells into Peripheral Vein, Percutaneous Approach (ICD-10-PCS; principal; 2019-10-27)
PROC: 0DB68ZX Excision of Stomach, Via Natural or Artificial Opening Endoscopic, Diagnostic (ICD-10-PCS; 2019-10-28)
PROC: 5A1D70Z Performance of Urinary Filtration, Intermittent, Less than 6 Hours Per Day (ICD-10-PCS; 2019-10-28)
DX: K25.4 Chronic or unspecified gastric ulcer with hemorrhage (principal); N18.6 End stage renal disease; E43 Unspecified severe protein-calorie malnutrition; D47.Z2 Castleman disease; E87.1 Hypo-osmolality and hyponatremia; R18.8 Other ascites; Z68.1 Body mass index [BMI] 19.9 or less, adult; I12.0 Hypertensive chronic kidney disease with stage 5 chronic kidney disease or end stage renal disease; K29.70 Gastritis, unspecified, without bleeding; D63.8 Anemia in other chronic diseases classified elsewhere; E83.39 Other disorders of phosphorus metabolism; E83.52 Hypercalcemia; Z85.72 Personal history of non-Hodgkin lymphomas; Z87.19 Personal history of other diseases of the digestive system; Z90.49 Acquired absence of other specified parts of digestive tract; Z92.21 Personal history of antineoplastic chemotherapy; Z99.2 Dependence on renal dialysis; Z88.1 Allergy status to other antibiotic agents; Z79.899 Other long term (current) drug therapy
CPT/HCPCS: 36415; 43239; 76700-TC; 78226; 80053; 80074; 80076; 82103; 82150-TC; 82248-TC; 82390; 82728; 82977-TC; 83516; 83540-TC; 83550-TC; 83690-TC; 83735-TC; 84100-TC; 84484; 85025; 85610-TC; 86038; 86376; 86870; 86886; 86900; 86901; 86905; 86920; 87040-TC; 87081; 88305; 88312; 88313; 90935; 90937; 96361; 96365; 96375; 99285; A9537; G0480; G0481; J0295; J2060; J2250; J2270; J2405; J3010; J3490; J7030; P9021

== ENCOUNTER 2019-11-03 00:19 | Inpatient (IN) | payer OTHER, MEDICAID ==
[~2019-11-03] VITALS: Ht 165.1 cm; Wt 45.8 kg
[2019-11-03 00:19] VITALS: BP_SYST 136
[~2019-11-03 00:19] MED LIST changes: -DOXY100C PO; +PANT20TA2 PO
[2019-11-03] MEDS ORDERED: MORPHINE 4 MG/ML INJ. SYRINGE IVP ONE (01:00)
[2019-11-03 01:39] LABS: BASOPHILS # (AUTO) 0.2 K/uL (0.0-0.2); BASOPHILS % (AUTO) 2.5 % (0.0-2.0); EOSINOPHILS # (AUTO) 0.3 K/uL (0.0-0.4); EOSINOPHILS % (AUTO) 4.8 % (0.0-4.0); HEMATOCRIT 27.5 % (36-54); HEMOGLOBIN 9.1 g/dL (14.0-18.0); LYMPHOCYTES # (AUTO) 1.3 K/uL (1.0-5.5); LYMPHOCYTES % (AUTO) 17.9 % (20.5-51.5); MEAN CORPUSCULAR HEMOGLOBIN 30 pg (27-31); MEAN CORPUSCULAR HGB CONC 33 % (32-36); MEAN CORPUSCULAR VOLUME 92 fL (79.0-98.0); MONOCYTES # (AUTO) 0.7 K/uL (0.0-1.0); MONOCYTES % (AUTO) 10.6 % (1.7-9.3); NEUTROPHILS # (AUTO) 4.5 K/uL (1.8-7.7); NEUTROPHILS % (AUTO) 64.2 % (40.0-70.0); PLATELET COUNT (AUTO) 242 K/uL (130-430); RED CELL DISTRIBUTION WIDTH 14.7 % (9.0-15.0)
[2019-11-03 01:54] LABS: ALBUMIN 1.8 g/dL (3.4-4.8); TOTAL BILIRUBIN 0.6 mg/dL (0.0-1.0)
[2019-11-03 01:57] LABS: POTASSIUM 5.8 mmol/L (3.5-5.1)
[2019-11-03 01:58] LABS: CREATININE 9.44 mg/dL (0.55-1.30)
[2019-11-03] MEDS ORDERED: ACETAMINOPHEN 325 MG TABLET PO PRN (06:00)
[2019-11-03] MEDS: CARVEDILOL 6.25 MG TABLET (COREG) PO SCH ×2 (08:52→21:17)
[2019-11-03] MEDS ORDERED: ONDANSETRON HCL 4 MG/2 ML VIAL IVP ONE (09:15)
[2019-11-03] MEDS ORDERED: MAG HYDROX/AL HYDROX/SIMETH 30 ML, DICYCLOMINE HCL 20 MG, LIDOCAINE VISCOUS 2% 15ML (PO... PO ONE ×3 (09:45)
[2019-11-03] MEDS ORDERED: FUROSEMIDE 40 MG/4 ML VIAL IVP ONE (10:15)
[2019-11-03 12:32] VITALS: BP_SYST 127
[2019-11-03 16:00] VITALS: BP_SYST 141
[2019-11-03 20:05] VITALS: BP_SYST 122
[2019-11-03] MEDS ORDERED: CARVEDILOL 12.5 MG TABLET (COREG) PO SCH (21:00)
[2019-11-03] MEDS ORDERED: LORazepam 1 MG TABLET PO SCH ×2 (22:30→22:45)
[2019-11-04 06:19] LABS: ALBUMIN 1.6 g/dL (3.4-4.8); CREATININE 6.24 mg/dL (0.55-1.30); POTASSIUM 3.7 mmol/L (3.5-5.1); TOTAL BILIRUBIN 0.7 mg/dL (0.0-1.0)
[2019-11-04 06:44] LABS: BASOPHILS # (AUTO) 0.1 K/uL (0.0-0.2); BASOPHILS % (AUTO) 1.4 % (0.0-2.0); EOSINOPHILS # (AUTO) 0.2 K/uL (0.0-0.4); EOSINOPHILS % (AUTO) 3.6 % (0.0-4.0); HEMATOCRIT 28.7 % (36-54); HEMOGLOBIN 9.6 g/dL (14.0-18.0); MEAN CORPUSCULAR HEMOGLOBIN 31 pg (27-31); MEAN CORPUSCULAR HGB CONC 34 % (32-36); MEAN CORPUSCULAR VOLUME 91 fL (79.0-98.0); MONOCYTES # (AUTO) 0.8 K/uL (0.0-1.0); MONOCYTES % (AUTO) 11.4 % (1.7-9.3); NEUTROPHILS # (AUTO) 4.6 K/uL (1.8-7.7); NEUTROPHILS % (AUTO) 68.6 % (40.0-70.0); PLATELET COUNT (AUTO) 281 K/uL (130-430); RED BLOOD CELL COUNT(AUTO) 3.17 MIL/uL (4.2-6.2); RED CELL DISTRIBUTION WIDTH 14.6 % (9.0-15.0); WHITE BLOOD COUNT (AUTO) 6.7 K/uL (4.8-10.8)
[2019-11-04 07:18] LABS: CALCIUM 6.9 mg/dL (8.4-11.0)
[2019-11-04 08:00] VITALS: BP_SYST 108
[2019-11-04] MEDS: FAMOTIDINE 20 MG TABLET PO SCH (09:00)
[2019-11-04] MEDS: CARVEDILOL 6.25 MG TABLET (COREG) PO SCH ×2 (09:31→21:38)
[2019-11-04 11:32] LABS: THYROID STIMULATING HORMONE 1.75 uIu/mL (0.36-3.74)
[2019-11-04 12:15] VITALS: BP_SYST 108
[2019-11-04 20:00] VITALS: BP_SYST 116
[2019-11-04] MEDS ORDERED: LORazepam 1 MG TABLET PO SCH (21:00)
[2019-11-05 04:00] VITALS: BP_SYST 122
[2019-11-05] MEDS ORDERED: DIPHENHYDRAMINE HCL 50 MG CAPSULE PO SCH (04:00)
[2019-11-05 08:00] VITALS: BP_SYST 118
[2019-11-05] MEDS: CARVEDILOL 6.25 MG TABLET (COREG) PO SCH (10:42)
[2019-11-05] MEDS: FAMOTIDINE 20 MG TABLET PO SCH (10:42)
[2019-11-05 12:00] VITALS: BP_SYST 111
[2019-11-05 14:08] VITALS: BP_SYST 111
== END 2019-11-05 15:32 | disposition home or self-care (01) | DRG 291 ==
LOC: SED 00:19 → STU 05:46
PROVIDERS: ADMIT Internal Medicine; ATTEND Internal Medicine
PROC: 5A1D70Z Performance of Urinary Filtration, Intermittent, Less than 6 Hours Per Day (ICD-10-PCS; principal; 2019-11-03)
DX: I13.2 Hypertensive heart and chronic kidney disease with heart failure and with stage 5 chronic kidney disease, or end stage renal disease (principal); N18.6 End stage renal disease; E43 Unspecified severe protein-calorie malnutrition; I50.43 Acute on chronic combined systolic (congestive) and diastolic (congestive) heart failure; Z68.1 Body mass index [BMI] 19.9 or less, adult; D47.Z2 Castleman disease; F12.90 Cannabis use, unspecified, uncomplicated; I07.1 Rheumatic tricuspid insufficiency; D63.1 Anemia in chronic kidney disease; I42.0 Dilated cardiomyopathy; R07.89 Other chest pain; Z99.2 Dependence on renal dialysis; Z88.1 Allergy status to other antibiotic agents; Z90.49 Acquired absence of other specified parts of digestive tract; Z79.899 Other long term (current) drug therapy; Z92.21 Personal history of antineoplastic chemotherapy
CPT/HCPCS: 36415; 71045; 78579; 78580-TC; 80053; 83880; 84443-TC; 84484; 85025; 85379; 87081; 90935; 93005; 96374; 96375; 99285; A9539; A9540; G0378; J1940; J2001; J2270; J2405; J7030; Q0163

== ENCOUNTER 2019-12-12 04:59 | Inpatient (IN) | payer OTHER, MEDICAID, SELFPAY ==
[~2019-12-12] VITALS: Ht 165.1 cm; Wt 51.4 kg
[2019-12-12 05:05] VITALS: BP_SYST 132
[2019-12-12 05:50] LABS: BASOPHILS # (AUTO) 0.1 K/uL (0.0-0.2); BASOPHILS % (AUTO) 1.3 % (0.0-2.0); EOSINOPHILS # (AUTO) 0.5 K/uL (0.0-0.4); EOSINOPHILS % (AUTO) 4.5 % (0.0-4.0); HEMATOCRIT 28.6 % (36-54); HEMOGLOBIN 9.6 g/dL (14.0-18.0); LYMPHOCYTES # (AUTO) 0.5 K/uL (1.0-5.5); LYMPHOCYTES % (AUTO) 4.7 % (20.5-51.5); MEAN CORPUSCULAR HEMOGLOBIN 31 pg (27-31); MEAN CORPUSCULAR HGB CONC 34 % (32-36); MEAN CORPUSCULAR VOLUME 91 fL (79.0-98.0); MONOCYTES # (AUTO) 0.8 K/uL (0.0-1.0); NEUTROPHILS # (AUTO) 8.7 K/uL (1.8-7.7); NEUTROPHILS % (AUTO) 81.5 % (40.0-70.0); PLATELET COUNT (AUTO) 320 K/uL (130-430); RED BLOOD CELL COUNT(AUTO) 3.13 MIL/uL (4.2-6.2); RED CELL DISTRIBUTION WIDTH 14.8 % (9.0-15.0); WHITE BLOOD COUNT (AUTO) 10.7 K/uL (4.8-10.8)
[2019-12-12 05:57] LABS: ANION GAP 11 (5-15); CALCIUM 7.9 mg/dL (8.4-11.0); CHLORIDE 95 mmol/L (98-107); GLUCOSE 109 mg/dL (70-99); POTASSIUM 5.5 mmol/L (3.5-5.1); SODIUM SERUM 129 mmol/L (136-145); UREA NITROGEN, BLOOD 65 mg/dL (8-21)
[2019-12-12 05:59] LABS: CREATININE 8.09 mg/dL (0.55-1.30); GFR AFRICAN AMERICAN 9 mL/min (>90)
[2019-12-12] MEDS ORDERED: LORazepam 2 MG/ML VIAL IVP ONE (06:00)
[2019-12-12 06:05] LABS: ALANINE AMINOTRANSFERASE 21 U/L (12-78); ALBUMIN 1.9 g/dL (3.4-4.8); ASPARTATE AMINOTRANSFERASE 21 U/L (10-37); TOTAL BILIRUBIN 0.7 mg/dL (0.0-1.0)
[2019-12-12] MEDS ORDERED: SODIUM POLYSTYRENE SULFONATE 15 GM/60 ML UDBTL PO ONE (06:30)
[2019-12-12] MEDS ORDERED: ALBUTEROL SULFATE 0.083% 2.5 MG/3 ML VIAL.NEB INH ONE (06:30)
[2019-12-12] MEDS ORDERED: SODIUM BICARBONATE 8.4% JECT 50 MEQ/50 ML SYRINGE IVP ONE (06:30)
[2019-12-12] MEDS ORDERED: MUPIROCIN 2% TOPICAL OINTMENT 22 GM NS PRN (08:15)
[2019-12-12] MEDS ORDERED: ONDANSETRON HCL 4 MG/2 ML VIAL IVP PRN (08:15)
[2019-12-12] MEDS ORDERED: ZOLPIDEM TARTRATE 5 MG TABLET PO PRN (08:15)
[2019-12-12] MEDS ORDERED: DOCUSATE SODIUM 100 MG CAPSULE PO PRN (08:15)
[2019-12-12] MEDS ORDERED: MAGNESIUM SULFATE 50 ML IV PRN (08:15)
[2019-12-12] MEDS ORDERED: POTASSIUM CHLORIDE 20 MEQ TAB.PRT.SR PO PRN (08:15)
[2019-12-12 08:27] VITALS: BP_SYST 127
[2019-12-12] MEDS: HEPARIN SODIUM,PORCINE 5000 UNITS/ML VIAL SUBCUT SCH ×3 (09:00→20:58)
[2019-12-12] MEDS: BENZOCAINE/MENTHOL 1 EACH LOZENGE MM PRN (09:25)
[2019-12-12 12:31] VITALS: BP_SYST 139
[2019-12-12] MEDS: PIPERACILLIN/TAZO 2.25G/DEX-IS 50 ML IV SCH ×3 (14:01→23:14)
[2019-12-12] MEDS: MORPHINE 2 MG/ML INJ. SYRINGE IVP PRN ×5 (14:06→23:42)
[2019-12-12 16:04] VITALS: BP_SYST 111
[2019-12-12] MEDS: ACETAMINOPHEN 325 MG TABLET PO PRN ×2 (16:07→23:15)
[2019-12-12 20:38] VITALS: BP_SYST 126
[2019-12-12] MEDS ORDERED: NACL 0.9% 1,000 ML IV ONE (21:00)
[2019-12-12] MEDS: LORazepam 2 MG/ML VIAL IVP PRN (21:55)
[2019-12-13] VITALS (9 sets, daily range): BP systolic 117–140
[2019-12-13] MEDS: LORazepam 2 MG/ML VIAL IVP PRN ×3 (02:09→21:30)
[2019-12-13] MEDS: PIPERACILLIN/TAZO 2.25G/DEX-IS 50 ML IV SCH ×3 (05:01→17:13)
[2019-12-13] MEDS: MORPHINE 2 MG/ML INJ. SYRINGE IVP PRN (05:14)
[2019-12-13 05:53] LABS: CALCIUM 7.7 mg/dL (8.4-11.0); CREATININE 6.33 mg/dL (0.55-1.30); POTASSIUM 4.2 mmol/L (3.5-5.1)
[2019-12-13 06:11] LABS: BASOPHILS # (AUTO) 0.1 K/uL (0.0-0.2); BASOPHILS % (AUTO) 0.8 % (0.0-2.0); EOSINOPHILS # (AUTO) 0.2 K/uL (0.0-0.4); EOSINOPHILS % (AUTO) 1.3 % (0.0-4.0); HEMATOCRIT 28.3 % (36-54); HEMOGLOBIN 9.3 g/dL (14.0-18.0); LYMPHOCYTES # (AUTO) 0.3 K/uL (1.0-5.5); LYMPHOCYTES % (AUTO) 2.8 % (20.5-51.5); MEAN CORPUSCULAR HEMOGLOBIN 30 pg (27-31); MEAN CORPUSCULAR HGB CONC 33 % (32-36); MEAN CORPUSCULAR VOLUME 92 fL (79.0-98.0); MONOCYTES # (AUTO) 0.8 K/uL (0.0-1.0); MONOCYTES % (AUTO) 7.1 % (1.7-9.3); NEUTROPHILS # (AUTO) 10.4 K/uL (1.8-7.7); PLATELET COUNT (AUTO) 266 K/uL (130-430); RED BLOOD CELL COUNT(AUTO) 3.09 MIL/uL (4.2-6.2); RED CELL DISTRIBUTION WIDTH 15.1 % (9.0-15.0); WHITE BLOOD COUNT (AUTO) 11.8 K/uL (4.8-10.8)
[2019-12-13] MEDS: HEPARIN SODIUM,PORCINE 5000 UNITS/ML VIAL SUBCUT SCH ×2 (08:34→20:10)
[2019-12-13] MEDS ORDERED: FUROSEMIDE 20 MG/2 ML VIAL IVP ONE (10:15)
[2019-12-13] MEDS ORDERED: HYDROcodone/ACETAMIN 5-325 MG TAB (NORCO/ VICODIN) PO PRN (11:00)
[2019-12-13] MEDS: CARVEDILOL 3.125 MG TABLET (COREG) PO SCH (20:11)
[2019-12-13] MEDS: BENZOCAINE/MENTHOL 1 EACH LOZENGE MM PRN (20:11)
[2019-12-14] VITALS: BP_SYST 121
[2019-12-14] MEDS: PIPERACILLIN/TAZO 2.25G/DEX-IS 50 ML IV SCH ×4 (00:45→17:36)
[2019-12-14] MEDS: BENZOCAINE/MENTHOL 1 EACH LOZENGE MM PRN ×2 (00:45→05:31)
[2019-12-14] MEDS: LORazepam 2 MG/ML VIAL IVP PRN ×3 (05:32→17:36)
[2019-12-14 06:00] VITALS: BP_SYST 135
[2019-12-14 06:00] LABS: BASOPHILS # (AUTO) 0.1 K/uL (0.0-0.2); BASOPHILS % (AUTO) 1.2 % (0.0-2.0); CALCIUM 8.8 mg/dL (8.4-11.0); EOSINOPHILS # (AUTO) 0.4 K/uL (0.0-0.4); EOSINOPHILS % (AUTO) 4.6 % (0.0-4.0); HEMATOCRIT 27.4 % (36-54); LYMPHOCYTES # (AUTO) 0.7 K/uL (1.0-5.5); LYMPHOCYTES % (AUTO) 7.1 % (20.5-51.5); MEAN CORPUSCULAR HEMOGLOBIN 30 pg (27-31); MEAN CORPUSCULAR HGB CONC 33 % (32-36); MEAN CORPUSCULAR VOLUME 92 fL (79.0-98.0); MONOCYTES # (AUTO) 0.8 K/uL (0.0-1.0); MONOCYTES % (AUTO) 8.5 % (1.7-9.3); NEUTROPHILS # (AUTO) 7.6 K/uL (1.8-7.7); NEUTROPHILS % (AUTO) 78.6 % (40.0-70.0); PLATELET COUNT (AUTO) 264 K/uL (130-430); POTASSIUM 3.8 mmol/L (3.5-5.1); RED BLOOD CELL COUNT(AUTO) 2.98 MIL/uL (4.2-6.2); RED CELL DISTRIBUTION WIDTH 15.1 % (9.0-15.0); WHITE BLOOD COUNT (AUTO) 9.6 K/uL (4.8-10.8)
[2019-12-14 07:38] LABS: CREATININE 7.96 mg/dL (0.55-1.30)
[2019-12-14 08:00] VITALS: BP_SYST 135
[2019-12-14] MEDS: FUROSEMIDE 20 MG/2 ML VIAL IVP SCH (08:42)
[2019-12-14] MEDS: CARVEDILOL 3.125 MG TABLET (COREG) PO SCH (08:42)
[2019-12-14] MEDS: HEPARIN SODIUM,PORCINE 5000 UNITS/ML VIAL SUBCUT SCH ×2 (08:52→21:00)
[2019-12-14 12:00] VITALS: BP_SYST 133
[2019-12-14 16:00] VITALS: BP_SYST 117
[2019-12-14 20:00] VITALS: BP_SYST 129
[2019-12-14] MEDS: CARVEDILOL 6.25 MG TABLET (COREG) PO SCH (20:37)
[2019-12-14] MEDS: MORPHINE 2 MG/ML INJ. SYRINGE IVP PRN (20:38)
[2019-12-15] MEDS: LORazepam 2 MG/ML VIAL IVP PRN (00:39)
[2019-12-15] MEDS: PIPERACILLIN/TAZO 2.25G/DEX-IS 50 ML IV SCH ×3 (00:42→11:05)
[2019-12-15 01:14] VITALS: BP_SYST 132
[2019-12-15 07:13] LABS: BASOPHILS # (AUTO) 0.1 K/uL (0.0-0.2); BASOPHILS % (AUTO) 1.4 % (0.0-2.0); EOSINOPHILS # (AUTO) 0.8 K/uL (0.0-0.4); EOSINOPHILS % (AUTO) 8.7 % (0.0-4.0); HEMOGLOBIN 8.1 g/dL (14.0-18.0); LYMPHOCYTES % (AUTO) 11.7 % (20.5-51.5); MEAN CORPUSCULAR HEMOGLOBIN 31 pg (27-31); MEAN CORPUSCULAR HGB CONC 34 % (32-36); MEAN CORPUSCULAR VOLUME 91 fL (79.0-98.0); MONOCYTES # (AUTO) 0.9 K/uL (0.0-1.0); MONOCYTES % (AUTO) 10.9 % (1.7-9.3); NEUTROPHILS # (AUTO) 5.8 K/uL (1.8-7.7); NEUTROPHILS % (AUTO) 67.3 % (40.0-70.0); PLATELET COUNT (AUTO) 231 K/uL (130-430); RED BLOOD CELL COUNT(AUTO) 2.65 MIL/uL (4.2-6.2); RED CELL DISTRIBUTION WIDTH 15.3 % (9.0-15.0); WHITE BLOOD COUNT (AUTO) 8.6 K/uL (4.8-10.8)
[2019-12-15 07:30] LABS: CALCIUM 8.1 mg/dL (8.4-11.0); POTASSIUM 3.6 mmol/L (3.5-5.1)
[2019-12-15 08:06] VITALS: BP_SYST 113
[2019-12-15 08:15] LABS: CREATININE 9.64 mg/dL (0.55-1.30)
[2019-12-15] MEDS: FUROSEMIDE 20 MG/2 ML VIAL IVP SCH (08:51)
[2019-12-15] MEDS: HEPARIN SODIUM,PORCINE 5000 UNITS/ML VIAL SUBCUT SCH (08:51)
[2019-12-15] MEDS: CARVEDILOL 6.25 MG TABLET (COREG) PO SCH (08:51)
[2019-12-15 12:30] VITALS: BP_SYST 117
[2019-12-15 12:54] VITALS: BP_SYST 114
[2019-12-15] MEDS ORDERED: DOXY100T2 PO (16:11)
[2019-12-15 16:13] VITALS: BP_SYST 114
[2019-12-15] MEDS ORDERED: DOXYCYCLINE HYCLATE 100 MG CAPSULE PO SCH (21:00)
== END 2019-12-15 17:10 | disposition home or self-care (01) | DRG 682 ==
LOC: SED 04:59 → STU 06:26
PROVIDERS: ADMIT General Practice; ATTEND General Practice
PROC: 5A1D70Z Performance of Urinary Filtration, Intermittent, Less than 6 Hours Per Day (ICD-10-PCS; principal; 2019-12-12)
DX: N17.0 Acute kidney failure with tubular necrosis (principal); J18.9 Pneumonia, unspecified organism; E43 Unspecified severe protein-calorie malnutrition; I50.43 Acute on chronic combined systolic (congestive) and diastolic (congestive) heart failure; E87.1 Hypo-osmolality and hyponatremia; D47.Z2 Castleman disease; R64 Cachexia; Z68.1 Body mass index [BMI] 19.9 or less, adult; R65.10 Systemic inflammatory response syndrome (SIRS) of non-infectious origin without acute organ dysfunction; N18.6 End stage renal disease; E87.5 Hyperkalemia; D50.9 Iron deficiency anemia, unspecified; B34.9 Viral infection, unspecified; I27.20 Pulmonary hypertension, unspecified; J10.1 Influenza due to other identified influenza virus with other respiratory manifestations; D63.8 Anemia in other chronic diseases classified elsewhere; F12.90 Cannabis use, unspecified, uncomplicated; Z78.9 Other specified health status; Z92.21 Personal history of antineoplastic chemotherapy; Z99.2 Dependence on renal dialysis; Z79.899 Other long term (current) drug therapy; Z88.8 Allergy status to other drugs, medicaments and biological substances; Z88.1 Allergy status to other antibiotic agents
CPT/HCPCS: 36415; 71045; 80048; 80053; 83036; 83605; 83735-TC; 83880; 84484; 85025; 86710; 86870; 86886; 86900; 86901; 87040-TC; 87081; 90935; 93005; 94640; 96374; 96375; 99285; G0378; J1644; J1940; J2060; J2270; J2543; J3475; J7030; J7613; U0002

== ENCOUNTER 2019-12-31 21:30 | Emergency (ER) | payer OTHER, MEDICAID, SELFPAY ==
[~2019-12-31] VITALS: Ht 165.1 cm; Wt 46.3 kg
[~2019-12-31 21:30] MED LIST changes: +DOXY100T2 PO; -PANT20TA2 PO
[2019-12-31 21:45] VITALS: BP_SYST 137
[2019-12-31 22:15] LABS: BASOPHILS # (AUTO) 0.1 K/uL (0.0-0.2); BASOPHILS % (AUTO) 2.1 % (0.0-2.0); EOSINOPHILS # (AUTO) 0.3 K/uL (0.0-0.4); EOSINOPHILS % (AUTO) 3.9 % (0.0-4.0); HEMATOCRIT 29.2 % (36-54); HEMOGLOBIN 9.8 g/dL (14.0-18.0); LYMPHOCYTES # (AUTO) 1.1 K/uL (1.0-5.5); LYMPHOCYTES % (AUTO) 16.8 % (20.5-51.5); MEAN CORPUSCULAR HEMOGLOBIN 31 pg (27-31); MEAN CORPUSCULAR HGB CONC 34 % (32-36); MEAN CORPUSCULAR VOLUME 92 fL (79.0-98.0); MONOCYTES # (AUTO) 0.6 K/uL (0.0-1.0); MONOCYTES % (AUTO) 8.2 % (1.7-9.3); NEUTROPHILS # (AUTO) 4.6 K/uL (1.8-7.7); PLATELET COUNT (AUTO) 390 K/uL (130-430); RED BLOOD CELL COUNT(AUTO) 3.16 MIL/uL (4.2-6.2); RED CELL DISTRIBUTION WIDTH 15.9 % (9.0-15.0); WHITE BLOOD COUNT (AUTO) 6.7 K/uL (4.8-10.8)
[2019-12-31 23:09] VITALS: BP_SYST 120
[2019-12-31 23:11] LABS: ALBUMIN 2.1 g/dL (3.4-4.8)
[2019-12-31 23:14] LABS: POTASSIUM 6.2 mmol/L (3.5-5.1)
[2019-12-31 23:16] LABS: CREATININE 9.1 mg/dL (0.55-1.30)
== END 2019-12-31 23:34 | disposition left against medical advice (07) ==
LOC: SED 21:30
DX: R53.1 Weakness (principal); N28.9 Disorder of kidney and ureter, unspecified; Z86.2 Personal history of diseases of the blood and blood-forming organs and certain disorders involving the immune mechanism; Z88.1 Allergy status to other antibiotic agents
CPT/HCPCS: 36415; 71045; 80053; 83880; 84484; 85025; 93005; 99285; J7030

== ENCOUNTER 2020-02-21 14:40 | Emergency (ER) | payer OTHER, MEDICAID ==
[~2020-02-21] VITALS: Ht 165.1 cm; Wt 47.2 kg
[2020-02-21 15:04] VITALS: BP_SYST 141
--- NOTE | 2020-02-21 15:30 | NUR ---
Patient to ER bed 2 to gown for evaluation. Side rails up.
[2020-02-21 15:45] LABS: EOSINOPHILS # (AUTO) 0.1 K/uL (0.0-0.4); EOSINOPHILS % (AUTO) 1.6 % (0.0-4.0); HEMATOCRIT 24.2 % (36-54); MEAN CORPUSCULAR HEMOGLOBIN 31 pg (27-31); MEAN CORPUSCULAR HGB CONC 33 % (32-36); MEAN CORPUSCULAR VOLUME 93 fL (79.0-98.0); MONOCYTES # (AUTO) 0.5 K/uL (0.0-1.0); MONOCYTES % (AUTO) 10.4 % (1.7-9.3); PLATELET COUNT (AUTO) 243 K/uL (130-430); RED BLOOD CELL COUNT(AUTO) 2.61 MIL/uL (4.2-6.2); RED CELL DISTRIBUTION WIDTH 16.3 % (9.0-15.0); WHITE BLOOD COUNT (AUTO) 5.1 K/uL (4.8-10.8)
--- NOTE | 2020-02-21 15:45 | NUR ---
Pt getting labs drawn
[2020-02-21 15:50] LABS: NEUTROPHILS % (AUTO) 67.2 % (40.0-70.0)
[2020-02-21 15:51] LABS: BASOPHILS % (AUTO) 0.8 % (0.0-2.0)
[2020-02-21 15:52] LABS: NEUTROPHILS # (AUTO) 3.5 K/uL (1.8-7.7)
[2020-02-21 15:55] LABS: INR 1.4 (0.80-1.20); PROTHROMBIN TIME 13.5 SECS (9.5-12.5)
--- NOTE | 2020-02-21 16:00 | NUR ---
Patient to ER bed 2 to gown for evaluation. Side rails up.
[2020-02-21 16:05] LABS: ALBUMIN 1.8 g/dL (3.4-4.8); CALCIUM 8.2 mg/dL (8.4-11.0); TOTAL BILIRUBIN 1.2 mg/dL (0.0-1.0)
[2020-02-21 16:14] LABS: POTASSIUM 6.1 mmol/L (3.5-5.1)
[2020-02-21 16:18] LABS: CREATININE 11.06 mg/dL (0.55-1.30)
--- NOTE | 2020-02-21 16:28 | NUR ---
ER at bedside examining patient.
--- NOTE | 2020-02-21 16:40 | NUR ---
pt is refusing to have an IV placed
[2020-02-21] MEDS ORDERED: SODIUM ZIRCONIUM CYCLOSILICATE 10 GM POWD.PACK PO ONE (16:45)
[2020-02-21 17:02] VITALS: BP_SYST 141
--- NOTE | 2020-02-21 17:04 | NUR ---
Patient given written and verbal discharge instructions and verbalizes understanding. ER MD discussed with patient the results and treatment provided. Patient in stable condition. ID arm band removed. Rx of Anusol given. Patient educated on pain management and to follow up with PMD. Pain Scale 0/10. Opportunity for questions provided and answered. Medication side effect fact sheet provided.
== END 2020-02-21 17:02 | disposition home or self-care (01) ==
LOC: SED 14:40
DX: K64.4 Residual hemorrhoidal skin tags (principal); E87.5 Hyperkalemia; Z88.1 Allergy status to other antibiotic agents; Z79.899 Other long term (current) drug therapy
CPT/HCPCS: 36415; 71045; 80053; 85025; 85610-TC; 85730-TC; 86870; 86886; 86900; 86901; 99284

== ENCOUNTER 2020-03-06 22:12 | Emergency (ER) | payer OTHER, MEDICAID ==
[~2020-03-06] VITALS: Ht 165.1 cm; Wt 46.3 kg
[2020-03-06 22:12] VITALS: BP_SYST 131
== END 2020-03-06 23:00 | disposition left against medical advice (07) ==
LOC: SED 22:12
DX: R07.9 Chest pain, unspecified (principal); Z53.21 Procedure and treatment not carried out due to patient leaving prior to being seen by health care provider
CPT/HCPCS: 93005

== ENCOUNTER 2020-03-07 03:08 | Emergency (ER) | payer OTHER, MEDICAID, SELFPAY ==
[~2020-03-07] VITALS: Ht 165.1 cm; Wt 46.3 kg
[2020-03-07 03:18] VITALS: BP_SYST 131
--- NOTE | 2020-03-07 03:18 | NUR ---
Patient to ER bed 8 to gown for evaluation. Side rails up. Report given to ARNIE PIKE/MATIAS PIKE.
--- NOTE | 2020-03-07 03:20 | NUR ---
ER at bedside examining patient.
--- NOTE | 2020-03-07 03:25 | NUR ---
44 y/o male presents to the ER c/o dry cough x couple of weeks. Denies fever, sick contacts, sob, chest pain, respiratory distress.
--- NOTE | 2020-03-07 03:57 | NUR ---
Pt swabbed for COVID.
[2020-03-07 04:18] LABS: BASOPHILS # (AUTO) 0.1 K/uL (0.0-0.2); BASOPHILS % (AUTO) 1.9 % (0.0-2.0); EOSINOPHILS # (AUTO) 0.2 K/uL (0.0-0.4); EOSINOPHILS % (AUTO) 2.5 % (0.0-4.0); LYMPHOCYTES # (AUTO) 1.4 K/uL (1.0-5.5); LYMPHOCYTES % (AUTO) 21.5 % (20.5-51.5); MEAN CORPUSCULAR HEMOGLOBIN 32 pg (27-31); MEAN CORPUSCULAR HGB CONC 34 % (32-36); MEAN CORPUSCULAR VOLUME 94 fL (79.0-98.0); MONOCYTES # (AUTO) 0.6 K/uL (0.0-1.0); MONOCYTES % (AUTO) 9.4 % (1.7-9.3); NEUTROPHILS # (AUTO) 4.3 K/uL (1.8-7.7); NEUTROPHILS % (AUTO) 64.7 % (40.0-70.0); PLATELET COUNT (AUTO) 234 K/uL (130-430); RED BLOOD CELL COUNT(AUTO) 2.21 MIL/uL (4.2-6.2); RED CELL DISTRIBUTION WIDTH 17.1 % (9.0-15.0); WHITE BLOOD COUNT (AUTO) 6.7 K/uL (4.8-10.8)
[2020-03-07 04:24] LABS: HEMATOCRIT 20.7 % (36-54)
[2020-03-07 04:32] LABS: CALCIUM 7.4 mg/dL (8.4-11.0)
[2020-03-07 04:37] LABS: TOTAL BILIRUBIN 1.6 mg/dL (0.0-1.0)
[2020-03-07 04:48] LABS: POTASSIUM 6.7 mmol/L (3.5-5.1)
[2020-03-07 04:49] LABS: CREATININE 9.98 mg/dL (0.55-1.30)
--- NOTE | 2020-03-07 05:01 | NUR ---
Pt refused IV to start tx for potassium of 6.7. Pt states he will go to dialysis today at 12:[address] Lamb at bedside discussing importance of dialysis and lab values.
[2020-03-07 05:10] VITALS: BP_SYST 131
--- NOTE | 2020-03-07 05:10 | NUR ---
Patient given written and verbal discharge instructions and verbalizes understanding. ER MD discussed with patient the results and treatment provided. Patient in stable condition. ID arm band removed. Rx of amoxcillin given. Pt educated on the importance of going to dialysis. Dr. Lamb discussed critical lab values, Opportunity for questions provided and answered. Medication side effect fact sheet provided.
[2020-03-07] MEDS ORDERED: AMOXICILLIN 500 MG CAPSULE PO ONE (05:15)
== END 2020-03-07 05:10 | disposition home or self-care (01) ==
LOC: EEVIPCON 03:08 → SED 03:08
DX: J40 Bronchitis, not specified as acute or chronic (principal); R05 Cough; I10 Essential (primary) hypertension; E87.6 Hypokalemia; D64.9 Anemia, unspecified; N18.6 End stage renal disease; Z88.1 Allergy status to other antibiotic agents; Z88.6 Allergy status to analgesic agent
CPT/HCPCS: 71045; 80053; 85025; 99284; C9803; U0003

== ENCOUNTER 2020-04-15 21:40 | Inpatient (IN) | payer OTHER, MEDICAID ==
[~2020-04-15] VITALS: Ht 165.1 cm; Wt 46.3 kg
[2020-04-15 21:40] VITALS: BP_SYST 135
--- NOTE | 2020-04-15 21:40 | NUR ---
Patient to ER bed 02 to gown for evaluation. Side rails up. Report given to SHAHZAD Sparks.
--- NOTE | 2020-04-15 22:04 | NUR ---
JENNIFER Hdez at bedside examining patient.
--- NOTE | 2020-04-15 22:05 | NUR ---
pt a&o x4 c/o of feeling fatiuge and exhausted over past three days. pt reports having dialysis today. pt denies n/v, cough, sob. pt states he was told his hemoglobin is low and may need a transfusion. pt hx of end-stage renal disease
[2020-04-15 22:37] LABS: BASOPHILS # (AUTO) 0.1 K/uL (0.0-0.2); LYMPHOCYTES # (AUTO) 1.1 K/uL (1.0-5.5); MEAN CORPUSCULAR HEMOGLOBIN 32 pg (27-31); MONOCYTES # (AUTO) 0.5 K/uL (0.0-1.0)
[2020-04-15 22:42] LABS: BASOPHILS % (AUTO) 2.9 % (0.0-2.0); EOSINOPHILS # (AUTO) 0.2 K/uL (0.0-0.4); EOSINOPHILS % (AUTO) 3.2 % (0.0-4.0); LYMPHOCYTES % (AUTO) 20.6 % (20.5-51.5); MEAN CORPUSCULAR HGB CONC 33 % (32-36); MEAN CORPUSCULAR VOLUME 96 fL (79.0-98.0); MONOCYTES % (AUTO) 10.6 % (1.7-9.3); NEUTROPHILS # (AUTO) 3.2 K/uL (1.8-7.7); NEUTROPHILS % (AUTO) 62.7 % (40.0-70.0); PLATELET COUNT (AUTO) 209 K/uL (130-430); RED CELL DISTRIBUTION WIDTH 15.6 % (9.0-15.0); WHITE BLOOD COUNT (AUTO) 5.2 K/uL (4.8-10.8)
--- NOTE | 2020-04-15 22:45 | NUR ---
blood transfusion consent form signed and placed in chart.
[2020-04-15 22:48] LABS: CALCIUM 8.1 mg/dL (8.4-11.0); POTASSIUM 5.5 mmol/L (3.5-5.1)
[2020-04-15 22:53] LABS: INR 1.4 (0.80-1.20); PROTHROMBIN TIME 13.7 SECS (9.5-12.5)
[2020-04-15 22:54] LABS: ALBUMIN 1.8 g/dL (3.4-4.8); TOTAL BILIRUBIN 1.3 mg/dL (0.0-1.0)
[2020-04-15 23:00] LABS: CREATININE 8.02 mg/dL (0.55-1.30)
[2020-04-15 23:02] LABS: HEMATOCRIT 18.9 % (36-54); HEMOGLOBIN 6.3 g/dL (14.0-18.0); RED BLOOD CELL COUNT(AUTO) 1.98 MIL/uL (4.2-6.2)
[2020-04-15] MEDS ORDERED: INSULIN REGULAR, HUMAN 10 UNITS/0.1 ML INJ IVP ONE (23:15)
[2020-04-15] MEDS ORDERED: DEXTROSE 50% JECT 50 ML DISP.SYRIN IVP ONE (23:15)
--- NOTE | 2020-04-15 23:15 | NUR ---
RECEIVED ADMIT ORDER FROM DR. ODONNELL.
--- NOTE | 2020-04-15 23:23 | NUR ---
# 20 gauge angiocath placed to RT AC. Use of asceptic technique. Opsite placed over site. Blood return noted. Blood for lab drawn from site. Flushed with 10 cc of normal saline. No evidence of infiltration noted. Patient tolerated well.
[2020-04-15] MEDS ORDERED: D5W 1,000 ML IV PRN (23:46)
--- NOTE | 2020-04-15 23:57 | NUR ---
Patient's code status is full code paperwork completed and placed in chart.
--- NOTE | 2020-04-15 23:58 | NUR ---
Patient will be admitted to care of Dr. Justin. Admitted to tele unit. Will go to room 109C. Belongings list completed. Complete and up to date summary report printed. SBAR report to be given at bedside with opportunity for questions.
[2020-04-15] MEDS ORDERED: CARV12.548 PO (23:59)
--- NOTE | 2020-04-15 23:59 | NUR ---
Medication reconciliation completed with information provided by patient. Any prior medication reconciliation on file was reviewed and corrected.
[2020-04-16] MEDS ORDERED: INSULIN LISPRO SLIDING SCALE 100 UNITS/ML VIAL (humaLOG) SUBCUT PRN
[2020-04-16] MEDS ORDERED: GLUCOSE 15 GM GEL (in 37.5 GM TUBE) PO PRN
--- NOTE | 2020-04-16 00:12 | NUR ---
Transfer to tele via ACLS protocol. Licensed nurse present. IV present no signs or symptoms of infiltration.
--- NOTE | 2020-04-16 00:25 | NUR ---
ADMIT NOTE Received pt from ER to the floor with a diagnosis of anemia, hyperkalemia. Admission process initiated. patient oriented to pain management, safety and call light-teach back done.
[2020-04-16 00:41] VITALS: BP_SYST 138
--- NOTE | 2020-04-16 01:06 | NUR ---
Spoke to Dr. Justin: Spoke to Dr. Justin over phone. Notified MD of patient's anxiety. New ordered received. Verified by read back. RN to input.
[2020-04-16] MEDS ORDERED: LORazepam 2 MG/ML VIAL IVP ONE ×2 (01:15)
[2020-04-16] MEDS ORDERED: LORazepam 1 MG TABLET PO PRN (01:15)
--- NOTE | 2020-04-16 04:00 | NUR ---
Rounds: Patient is sleeping in bed. No s/s acute distress. Respirations are even, nonlabored on room air. Call light is with patient. Safety and fall precautions in place. Will continue to monitor.
--- NOTE | 2020-04-16 06:38 | NUR ---
Blood sugar: Patient's blood sugar is 69. Gave patient apple juice. Will recheck blood sugar in 15 minutes.
[2020-04-16] MEDS: DEXTROSE 50% JECT 50 ML DISP.SYRIN IVP PRN (07:03)
--- NOTE | 2020-04-16 07:03 | NUR ---
Blood sugar recheck: Rechecked patients blood sugar. BS is 64. Dextrose 50%-Syringe 50ml IVP indicated per MD. Medication administered per MD order. Patient tolerated well.
--- NOTE | 2020-04-16 07:20 | NUR ---
Closing note: Endorsed care to dayshift RN. Patient is in bed, watching TV. No acute distress. Even, nonlabored breathing on room air. IV site to R AC is patent and intact, saline locked. all needs met. Bed is at lowest position, locked. Side rails up x2. Call light is with patient. Safety and fall precautions in place.
--- NOTE | 2020-04-16 07:20 | NUR ---
opening note received bedside sbar from night RN, patient in bed respirations even, non labored, bed in low and locked position, call light within reach, bed in low and locked position,
[2020-04-16 08:00] VITALS: BP_SYST 145
--- NOTE | 2020-04-16 08:15 | NUR ---
nurse note Patient in bed, respirations even, non labored, bed in low and locked position, call light within reach,
--- NOTE | 2020-04-16 10:00 | NUR ---
NURSE NOTE PATIENT IN BED, WATCHING TV, RESPIRATIONS EVEN NON LABORED, BED IN LOW AND LOCKED POSITION, PATIENT DENIES ANY PAIN OR DISCOMFORT, CALL LIGHT WITHIN REACH
--- NOTE | 2020-04-16 10:15 | NUR ---
closing note provided bedside SBAR to Alexa PIKE, patient in bed, respirations even, non labored, bed in low and locked position, call light within reach, refuses SCD's, endorsed care to SHAHZAD Liu Addendum: 04/16/20 at 1413 by Deneen Johnson RN DISREGARD ABOVE NOTE ENTERED ON WRONG PATIENT
[2020-04-16] MEDS ORDERED: CARVEDILOL 12.5 MG TABLET (COREG) PO ONE (11:00)
[2020-04-16 12:00] VITALS: BP_SYST 133
--- NOTE | 2020-04-16 12:00 | NUR ---
NURSE NOTE PATIENT IN BED EYES CLOSED, BED IN LOW AND LOCKED POSITION, CALL LIGHT WITHIN REACH
--- NOTE | 2020-04-16 14:16 | NUR ---
NURSE NOTE PATIENT IN BED WATCHING TV, BED IN LOW AND LOCKED POSITION, CALL LIGHT WITHIN REACH, DENIES ANY PAIN OR DISCOMFORT
[2020-04-16 16:00] VITALS: BP_SYST 115
--- NOTE | 2020-04-16 16:00 | NUR ---
Nurse note preparing patient for Blood Transfusion, patient requested Ativan for anxiety, I explained that he had PO ordered and he refused PO Ativan, requests IVP,
--- NOTE | 2020-04-16 16:15 | NUR ---
Nurse Note Paged Dr. Justin, regarding patients request for IVP Ativan, new orders received, called Dr Justin, back and verified orders
--- NOTE | 2020-04-16 17:00 | NUR ---
BT INITIATION: Consent signed per agreeing to administration of blood. Blood has been type and crossmatched. Blood sent from blood bank. Information on unit of blood checked against patient wristband at bedside by two nurses. All information matches. Patient or responsible green party informed of potential complications associated with blood transfusion. Informed of possible transfusion reaction symptoms. Aware of need to notify nurse at once of itching, shortness of breath, flushing, feeling of impending doom, or other symptoms not previously present. Vital signs taken within 5 minutes prior to initiation of transfusion. RN will remain with patient for first 15 minutes of transfusion at which time vital signs will be re-assessed.
[2020-04-16] MEDS: LORazepam 2 MG/ML VIAL IVP PRN ×2 (17:01→23:11)
--- NOTE | 2020-04-16 17:20 | NUR ---
closing note Provided bedside SBAR to night RN, patient in bed coughing, spo2 100%, called for breathing treatment, bed in low and locked position, call light within reach, bed alarm on, endorsed blood transfusion to night RN Addendum: 04/16/20 at 2052 by Deneen Johnson RN time input was incorrect, closing note should be 300
--- NOTE | 2020-04-16 17:20 | NUR ---
STOPPED BLOOD TRANSFUSION DISCONTINUED BLOOD TRANSFUSION, REMOVED LINE FROM PATIENT AND FLUSHED WITH NS, PUNCTURE IN TUBBING, BLOOD LEAKING OUT FROM PUMP, NOTIFIED GREEN BUILDING ENGINEER AND BLOOD BANK, RETURNED BLOOD AND TUBING TO BLOOD BANK Addendum: 04/16/20 at 1751 by Deneen Johnson RN SPOKE WITH BROOKE FROM LAB, PER BROOKE DISCARD BLOOD IN BIOHAZARD BAG IN ROOM, NO NEED TO RETURN BLOOD TO LAB OR BLOOD BANK, RE ORDER ONE UNIT OF PRBC'S FROM BLOOD BANK FOR TOTAL OF TWO UNITS PRBCs
--- NOTE | 2020-04-16 18:15 | NUR ---
Nurse Note patient complains of slight cough, making him gag and throw up, spoke with dr. Justin, received new orders, called back and verified orders
[2020-04-16] MEDS ORDERED: PROMETHAZINE HCL/CODEINE 6.25-10 mg/5 mL UDC PO PRN (18:45)
[2020-04-16] MEDS ORDERED: IPRATROPIUM/ALBUTEROL SULFATE 3 ML AMPUL.NEB (DUONEB) INH PRN (19:15)
--- NOTE | 2020-04-16 19:15 | NUR ---
Nurse note patient continues to cough, spo2 100% called Dr. Justin, new orders received
[2020-04-16 19:54] VITALS: BP_SYST 115
[2020-04-16 20:00] VITALS: BP_SYST 143
[2020-04-16] MEDS: CARVEDILOL 12.5 MG TABLET (COREG) PO SCH (22:56)
--- NOTE | 2020-04-16 23:51 | NUR ---
BT INITIATION: Consent signed per agreeing to administration of blood. Blood has been type and crossmatched. Blood sent from blood bank. Information on unit of blood checked against patient wristband at bedside by two nurses. All information matches. Patient or responsible democrat informed of potential complications associated with blood transfusion. Informed of possible transfusion reaction symptoms. Aware of need to notify nurse at once of itching, shortness of breath, flushing, feeling of impending doom, or other symptoms not previously present. Vital signs taken within 5 minutes prior to initiation of transfusion. RN will remain with patient for first 15 minutes of transfusion at which time vital signs will be re-assessed.
[2020-04-17] VITALS: BP_SYST 135
--- NOTE | 2020-04-17 01:49 | NUR ---
rounds / transfusion in progress Patient is awake, sitting on bed w/ legs dangle. He denies pain or distress. Will continue to monitor, call light w/in reach.
--- NOTE | 2020-04-17 02:55 | NUR ---
transfusion complete Patient sleeping and momentarily awakened for v/s. He denies any symptoms, no SOB, no pain. VSS. Removed blood bag and tubing and patient is saline locked. Will continue to monitor.
--- NOTE | 2020-04-17 07:00 | NUR ---
Fingerstick fingerstick bg test done w/ result of 55mg/dL; pateint awake alert, gave apple juice will recheck.
--- NOTE | 2020-04-17 07:30 | NUR ---
endorse care Patient awake, alert. I informed nurse I will f//u on accu-check.
--- NOTE | 2020-04-17 07:35 | NUR ---
Recheck Fingerstick glucose FBG test result is 63 mg/dL; administered D5 syringe, will continue to monitor.
[2020-04-17] MEDS: DEXTROSE 50% JECT 50 ML DISP.SYRIN IVP PRN (07:41)
[2020-04-17 08:00] VITALS: BP_SYST 140
--- NOTE | 2020-04-17 08:00 | NUR ---
INITIAL NOTES AWAKE AND ALERT IN BED. NO SHORTNESS OF BREATH ON ROOM AIR. DENIES ANY PAIN. IV ACCESS ON RIGHT ANTECUBITAL AREA. SCRATCH ON LEFT OUTER EYE. DR. ZAMUDIO CAME BY AND WAS INFORMED THAT PATIENT ONLY RECEIVED 1 UNIT OF PACKED CELLS. HE SAID THAT IF HEMOGLOBIN IS ABOVE 7 THIS MORNING, NO NEED TO TRANSFUSE ANOTHER BAG. FALL AND SAFETY CHECKS DONE. CALL LIGHT WITHIN REACH. WILL CONTINUE TO MONITOR.
[2020-04-17 08:03] LABS: BASOPHILS # (AUTO) 0.1 K/uL (0.0-0.2); BASOPHILS % (AUTO) 2.6 % (0.0-2.0); EOSINOPHILS # (AUTO) 0.2 K/uL (0.0-0.4); EOSINOPHILS % (AUTO) 3.1 % (0.0-4.0); HEMATOCRIT 21.5 % (36-54); HEMOGLOBIN 7.4 g/dL (14.0-18.0); LYMPHOCYTES # (AUTO) 1.2 K/uL (1.0-5.5); LYMPHOCYTES % (AUTO) 22.6 % (20.5-51.5); MEAN CORPUSCULAR HEMOGLOBIN 33 pg (27-31); MEAN CORPUSCULAR HGB CONC 34 % (32-36); MEAN CORPUSCULAR VOLUME 95 fL (79.0-98.0); MONOCYTES # (AUTO) 0.5 K/uL (0.0-1.0); MONOCYTES % (AUTO) 9.9 % (1.7-9.3); NEUTROPHILS # (AUTO) 3.2 K/uL (1.8-7.7); NEUTROPHILS % (AUTO) 61.8 % (40.0-70.0); PLATELET COUNT (AUTO) 193 K/uL (130-430); RED BLOOD CELL COUNT(AUTO) 2.27 MIL/uL (4.2-6.2); RED CELL DISTRIBUTION WIDTH 15.9 % (9.0-15.0); WHITE BLOOD COUNT (AUTO) 5.2 K/uL (4.8-10.8)
--- NOTE | 2020-04-17 08:03 | NUR ---
Recheck Fingerstick glucose FBG test result is 195 mg/dL; no coverage. Endorsed care and SHAHZAD Andrade aware.
[2020-04-17 08:04] LABS: CALCIUM 8.5 mg/dL (8.4-11.0)
[2020-04-17 08:11] LABS: POTASSIUM 5.8 mmol/L (3.5-5.1)
[2020-04-17 08:12] LABS: CREATININE 8.96 mg/dL (0.55-1.30)
--- NOTE | 2020-04-17 08:21 | NUR ---
NEPHRO MD DR PADILLA WAS CALLED, RE: CRITICAL LABS. SPOKE TO MARIAJOSE
--- NOTE | 2020-04-17 08:30 | NUR ---
TELEPHONE ORDERS DR. PADILLA CALLED BACK. IDENTIFIED PATIENT. INFORMED OF CRITICAL RESULTS. ORDERED FOR PATIENT TO HAVE DIALYSIS TODAY. READ BACK ORDER. AGREED. SYNTHETIC SOIL BLOCKS PULPER, FLAQUITA ROBISON.
[2020-04-17] MEDS: CARVEDILOL 12.5 MG TABLET (COREG) PO SCH (09:09)
--- NOTE | 2020-04-17 10:30 | NUR ---
ROUNDS RESTING IN BED AT THIS TIME. NO SIGN OF DISTRESS. TURNS BY HIMSELF IN BED. SAFETY CHECKS DONE. WILL MONITOR.
--- NOTE | 2020-04-17 11:20 | NUR ---
Dietitian Recommendations *Recommend: Add Nepro BID. ONS will provide additional 850 kcal and 38gm protein daily *Continue [facility] [place] Renal Standard diet per MD. *Encourage p t to increase PO intake. Please see Nutrition F/U note for details. CATARINA VAZQUEZ
--- NOTE | 2020-04-17 12:30 | NUR ---
ROUNDS BLOOD SUGAR RESULT OF 110MG/DL. NO INSULIN COVERAGE NEEDED. EDUCATED PATIENT REGARDING DIET MODIFICATIONS. VERBALIZED UNDERSTANDING. SAFETY CHECKS DONE. WILL MONITOR.
[2020-04-17 12:36] VITALS: BP_SYST 129
--- NOTE | 2020-04-17 15:00 | NUR ---
PATIENT REFUSED PHYSICAL THERAPY EVALUATION, HOWEVER, HE WAS OBSERVED, BY THIS PHYSICAL THERAPIST, AMBULATING INDEPENDENTLY IN THE ROOM. PLAN: ATTEMPT EVALUATION FOR AMBULATION OUTSIDE OF THE ROOM, TOMORROW.
--- NOTE | 2020-04-17 16:30 | NUR ---
DIALYSIS ENDED DIALYSIS NURSE WAS ABLE TO COLLECT 2.5 LITERS OF URINE. PATIENT TOLERATED IT WELL. REFUSED PHYSICAL THERAPY EVAL BUT PATIENT HAD BEEN AMBULATORY SINCE THIS MORNING. VITAL SIGNS STABLE.
[2020-04-17 17:01] VITALS: BP_SYST 148
[2020-04-17 18:17] VITALS: BP_SYST 148
--- NOTE | 2020-04-17 18:47 | NUR ---
DISCHARGE ACCORDING TO DR. PADILLA, PATIENT MAY BE DISCHARGED AFTER DIALYSIS. DR. ZAMUDIO WAS INFORMED AND GAVE DISCHARGE ORDERS. EDUCATION PROVIDED TO THE PATIENT. IV ACCESS REMOVED, NO ACTIVE BLEEDING. ID BANDS REMOVED. INFORMED FAMILY. AMBULATORY. PICKED UP BY FAMILY. ENCOURAGED PATIENT TO CALL FOR ANY QUESTIONS. DISCHARGED IN STABLE CONDITION.
[2020-04-17] MEDS ORDERED: MUPIROCIN 2% TOPICAL OINTMENT 22 GM TP SCH (21:00)
== END 2020-04-17 18:47 | disposition home or self-care (01) | DRG 811 ==
LOC: SED 21:40 → STU 23:27
PROVIDERS: ADMIT Family Medicine; ATTEND Family Medicine
PROC: 30233N1 Transfusion of Nonautologous Red Blood Cells into Peripheral Vein, Percutaneous Approach (ICD-10-PCS; principal; 2020-04-16)
DX: D64.9 Anemia, unspecified (principal); E43 Unspecified severe protein-calorie malnutrition; N18.6 End stage renal disease; E87.1 Hypo-osmolality and hyponatremia; Z68.1 Body mass index [BMI] 19.9 or less, adult; I12.0 Hypertensive chronic kidney disease with stage 5 chronic kidney disease or end stage renal disease; E87.5 Hyperkalemia; R74.0 Nonspecific elevation of levels of transaminase and lactic acid dehydrogenase [LDH]; Z99.2 Dependence on renal dialysis; Z91.15 Patient's noncompliance with renal dialysis; Z92.21 Personal history of antineoplastic chemotherapy; Z91.14 Patient's other noncompliance with medication regimen; Z88.1 Allergy status to other antibiotic agents; Z79.899 Other long term (current) drug therapy; Z90.49 Acquired absence of other specified parts of digestive tract; Z85.72 Personal history of non-Hodgkin lymphomas
CPT/HCPCS: 36415; 36430; 80048; 80053; 82962; 85025; 85610-TC; 85730-TC; 86870; 86886; 86900; 86901; 86905; 86920; 87081; 96374; 96375; 99285; G0378; J1815; J2060; J7030; J7040; P9021

== ENCOUNTER 2020-05-14 15:57 | Emergency (ER) | payer OTHER, MEDICAID ==
[~2020-05-14] VITALS: Ht 165.1 cm; Wt 45.4 kg
[~2020-05-14 15:57] MED LIST changes: -DOXY100T2 PO; -NEPH PO
[2020-05-14 16:03] VITALS: BP_SYST 121
[2020-05-14 16:45] VITALS: BP_SYST 121
== END 2020-05-14 16:45 | disposition home or self-care (01) ==
LOC: SED 15:57
DX: R05 Cough (principal); N18.6 End stage renal disease; Z88.1 Allergy status to other antibiotic agents; Z99.2 Dependence on renal dialysis
CPT/HCPCS: 71045; 99283

== ENCOUNTER 2020-06-22 15:00 | Inpatient (IN) | payer OTHER, MEDICAID, SELFPAY ==
[~2020-06-22] VITALS: Ht 165.1 cm; Wt 47.4 kg
[~2020-06-22 15:00] MED LIST changes: +ACET325T53 PO; +BACTROBAN NS; +DOXY100C2 PO; +TRAM50TA2 PO
[2020-06-22] MEDS ORDERED: D5NS 1,000 ML IV SCH (15:15)
[2020-06-22] MEDS ORDERED: LORazepam 2 MG/ML VIAL IVP PRN (15:15)
[2020-06-22 15:22] VITALS: BP_SYST 136
[2020-06-22 15:42] LABS: BASOPHILS # (AUTO) 0.1 K/uL (0.0-0.2); BASOPHILS % (AUTO) 1.8 % (0.0-2.0); EOSINOPHILS # (AUTO) 0.1 K/uL (0.0-0.4); LYMPHOCYTES # (AUTO) 1.4 K/uL (1.0-5.5); LYMPHOCYTES % (AUTO) 34.3 % (20.5-51.5); MEAN CORPUSCULAR HEMOGLOBIN 31 pg (27-31); MEAN CORPUSCULAR HGB CONC 34 % (32-36); MEAN CORPUSCULAR VOLUME 92 fL (79.0-98.0); MONOCYTES # (AUTO) 0.3 K/uL (0.0-1.0); MONOCYTES % (AUTO) 7.5 % (1.7-9.3); NEUTROPHILS # (AUTO) 2.2 K/uL (1.8-7.7); NEUTROPHILS % (AUTO) 53.4 % (40.0-70.0); PLATELET COUNT (AUTO) 175 K/uL (130-430); RED CELL DISTRIBUTION WIDTH 16.9 % (9.0-15.0); WHITE BLOOD COUNT (AUTO) 4.2 K/uL (4.8-10.8)
[2020-06-22 15:51] LABS: RED BLOOD CELL COUNT(AUTO) 1.63 MIL/uL (4.2-6.2)
[2020-06-22 17:18] LABS: POTASSIUM 4.6 mmol/L (3.5-5.1)
[2020-06-22 17:19] LABS: CALCIUM 7.9 mg/dL (8.4-11.0); CREATININE 6.69 mg/dL (0.55-1.30)
[2020-06-22] MEDS ORDERED: FUROSEMIDE 100 MG/10 ML VIAL IVP ONE (18:30)
[2020-06-22] MEDS ORDERED: LORazepam 1 MG TABLET PO ONE (19:15)
[2020-06-22 19:48] LABS: INR 1.4 (0.80-1.20); PROTHROMBIN TIME 13.8 SECS (9.5-12.5)
[2020-06-22 20:00] VITALS: BP_SYST 125
[2020-06-22 20:45] VITALS: BP_SYST 117
[2020-06-22 21:00] VITALS: BP_SYST 126
[2020-06-22 22:00] VITALS: BP_SYST 120
[2020-06-22 23:00] VITALS: BP_SYST 124
[2020-06-22] MEDS ORDERED: ACETAMINOPHEN 325 MG TABLET PO PRN (23:15)
[2020-06-23] VITALS (17 sets, daily range): BP systolic 102–134
[2020-06-23] MEDS: LORazepam 2 MG/ML VIAL IVP PRN ×5 (02:02→22:45)
[2020-06-23] MEDS: LOPERAMIDE HCL 2 MG CAPSULE PO PRN (10:52)
[2020-06-23] MEDS ORDERED: traMADol HCL HCL 50 MG TABLET (ULTRAM) PO PRN (11:45)
[2020-06-23] MEDS ORDERED: ACETAMINOPHEN 325 MG TABLET PO PRN (11:45)
[2020-06-23 16:08] LABS: BASOPHILS # (AUTO) 0.1 K/uL (0.0-0.2); BASOPHILS % (AUTO) 3.8 % (0.0-2.0); EOSINOPHILS # (AUTO) 0.1 K/uL (0.0-0.4); EOSINOPHILS % (AUTO) 4.1 % (0.0-4.0); HEMATOCRIT 24.6 % (36-54); HEMOGLOBIN 8.4 g/dL (14.0-18.0); LYMPHOCYTES # (AUTO) 0.6 K/uL (1.0-5.5); LYMPHOCYTES % (AUTO) 20.4 % (20.5-51.5); MEAN CORPUSCULAR HEMOGLOBIN 31 pg (27-31); MEAN CORPUSCULAR HGB CONC 34 % (32-36); MEAN CORPUSCULAR VOLUME 89 fL (79.0-98.0); MONOCYTES # (AUTO) 0.2 K/uL (0.0-1.0); MONOCYTES % (AUTO) 6.4 % (1.7-9.3); NEUTROPHILS % (AUTO) 65.3 % (40.0-70.0); PLATELET COUNT (AUTO) 183 K/uL (130-430); RED BLOOD CELL COUNT(AUTO) 2.77 MIL/uL (4.2-6.2); RED CELL DISTRIBUTION WIDTH 15.6 % (9.0-15.0); WHITE BLOOD COUNT (AUTO) 3.1 K/uL (4.8-10.8)
[2020-06-23 17:07] LABS: CALCIUM 8.2 mg/dL (8.4-11.0); CREATININE 2.89 mg/dL (0.55-1.30); THYROID STIMULATING HORMONE 2.03 uIu/mL (0.34-4.82)
[2020-06-23 17:12] LABS: POTASSIUM 2.8 mmol/L (3.5-5.1)
[2020-06-23] MEDS: EPOETIN ALFA 3,000 UNITS/ML VIAL SUBCUT SCH (18:00)
[2020-06-23] MEDS ORDERED: POTASSIUM CHLORIDE 20 MEQ TAB.PRT.SR PO ONE (18:00)
[2020-06-23] MEDS: FOLIC ACID 1 MG TABLET PO SCH (18:30)
[2020-06-23] MEDS ORDERED: EPOETIN ALFA 3,000 UNITS/ML VIAL ONE (18:54)
[2020-06-23] MEDS: MUPIROCIN 2% TOPICAL OINTMENT 22 GM NS SCH (21:00)
[2020-06-23] MEDS: DOXYCYCLINE HYCLATE 100 MG CAPSULE PO SCH (21:33)
[2020-06-23] MEDS: CARVEDILOL 12.5 MG TABLET (COREG) PO SCH (21:37)
[2020-06-24 00:15] VITALS: BP_SYST 105
[2020-06-24 06:27] LABS: BASOPHILS # (AUTO) 0.1 K/uL (0.0-0.2); BASOPHILS % (AUTO) 2.8 % (0.0-2.0); EOSINOPHILS # (AUTO) 0.1 K/uL (0.0-0.4); EOSINOPHILS % (AUTO) 3.6 % (0.0-4.0); HEMATOCRIT 22.3 % (36-54); HEMOGLOBIN 7.6 g/dL (14.0-18.0); LYMPHOCYTES # (AUTO) 1.1 K/uL (1.0-5.5); LYMPHOCYTES % (AUTO) 27.1 % (20.5-51.5); MEAN CORPUSCULAR HEMOGLOBIN 31 pg (27-31); MEAN CORPUSCULAR HGB CONC 34 % (32-36); MEAN CORPUSCULAR VOLUME 90 fL (79.0-98.0); MONOCYTES # (AUTO) 0.4 K/uL (0.0-1.0); MONOCYTES % (AUTO) 9.1 % (1.7-9.3); NEUTROPHILS # (AUTO) 2.3 K/uL (1.8-7.7); NEUTROPHILS % (AUTO) 57.4 % (40.0-70.0); PLATELET COUNT (AUTO) 161 K/uL (130-430); RED BLOOD CELL COUNT(AUTO) 2.47 MIL/uL (4.2-6.2); RED CELL DISTRIBUTION WIDTH 15.7 % (9.0-15.0); RETICULOCYTE COUNT 3.1 % (0.5-1.5)
[2020-06-24 08:00] VITALS: BP_SYST 100
[2020-06-24] MEDS ORDERED: NS IV SCH (09:00)
[2020-06-24] MEDS ORDERED: DEFEROXAMINE MESYLATE IV SCH (09:00)
[2020-06-24] MEDS: MUPIROCIN 2% TOPICAL OINTMENT 22 GM NS SCH ×2 (09:00→20:03)
[2020-06-24 09:04] LABS: TOTAL IRON BIND. CAPACITY 115 ug/dL (250-450)
[2020-06-24] MEDS: FOLIC ACID 1 MG TABLET PO SCH (09:15)
[2020-06-24] MEDS: DOXYCYCLINE HYCLATE 100 MG CAPSULE PO SCH ×2 (09:15→20:01)
[2020-06-24] MEDS: CARVEDILOL 12.5 MG TABLET (COREG) PO SCH ×2 (09:15→20:02)
[2020-06-24 11:26] LABS: CHLORIDE 101 mmol/L (98-107); GLUCOSE 133 mg/dL (70-99); POTASSIUM 4.4 mmol/L (3.5-5.1); SODIUM SERUM 136 mmol/L (136-145)
[2020-06-24 11:27] LABS: CALCIUM 7.9 mg/dL (8.4-11.0); CREATININE 4.69 mg/dL (0.55-1.30); GFR AFRICAN AMERICAN 18 mL/min (>90); UREA NITROGEN, BLOOD 15 mg/dL (8-21)
[2020-06-24 12:00] VITALS: BP_SYST 109
[2020-06-24 16:00] VITALS: BP_SYST 96
[2020-06-24 20:00] VITALS: BP_SYST 117
[2020-06-24] MEDS: LORazepam 2 MG/ML VIAL IVP PRN (20:03)
[2020-06-25] VITALS: BP_SYST 106
[2020-06-25] MEDS: LORazepam 2 MG/ML VIAL IVP PRN ×5 (00:03→21:08)
[2020-06-25 08:00] VITALS: BP_SYST 97
[2020-06-25 08:03] LABS: BASOPHILS # (AUTO) 0.1 K/uL (0.0-0.2); EOSINOPHILS # (AUTO) 0.2 K/uL (0.0-0.4); EOSINOPHILS % (AUTO) 3.8 % (0.0-4.0); HEMATOCRIT 23.8 % (36-54); HEMOGLOBIN 8.1 g/dL (14.0-18.0); LYMPHOCYTES # (AUTO) 1.3 K/uL (1.0-5.5); LYMPHOCYTES % (AUTO) 31.7 % (20.5-51.5); MEAN CORPUSCULAR HEMOGLOBIN 31 pg (27-31); MEAN CORPUSCULAR HGB CONC 34 % (32-36); MEAN CORPUSCULAR VOLUME 90 fL (79.0-98.0); MONOCYTES # (AUTO) 0.3 K/uL (0.0-1.0); MONOCYTES % (AUTO) 6.4 % (1.7-9.3); NEUTROPHILS # (AUTO) 2.4 K/uL (1.8-7.7); NEUTROPHILS % (AUTO) 56.1 % (40.0-70.0); PLATELET COUNT (AUTO) 158 K/uL (130-430); RED BLOOD CELL COUNT(AUTO) 2.63 MIL/uL (4.2-6.2); RED CELL DISTRIBUTION WIDTH 16.4 % (9.0-15.0); WHITE BLOOD COUNT (AUTO) 4.3 K/uL (4.8-10.8)
[2020-06-25] MEDS: DOXYCYCLINE HYCLATE 100 MG CAPSULE PO SCH ×2 (08:30→21:07)
[2020-06-25] MEDS: FOLIC ACID 1 MG TABLET PO SCH (08:30)
[2020-06-25] MEDS: CARVEDILOL 12.5 MG TABLET (COREG) PO SCH ×2 (08:33→21:07)
[2020-06-25 11:12] LABS: FOLATE (FOLIC ACID) 4.2 ng/mL (>3.0)
[2020-06-25] MEDS: MUPIROCIN 2% TOPICAL OINTMENT 22 GM NS SCH ×2 (14:45→21:00)
[2020-06-25 20:00] VITALS: BP_SYST 112
[2020-06-25] MEDS: LOPERAMIDE HCL 2 MG CAPSULE PO PRN (22:57)
[2020-06-26 00:05] VITALS: BP_SYST 107
[2020-06-26] MEDS: LORazepam 2 MG/ML VIAL IVP PRN ×5 (02:04→22:10)
[2020-06-26 08:00] VITALS: BP_SYST 106
[2020-06-26] MEDS: DOXYCYCLINE HYCLATE 100 MG CAPSULE PO SCH ×2 (09:16→20:35)
[2020-06-26] MEDS: MUPIROCIN 2% TOPICAL OINTMENT 22 GM NS SCH ×2 (09:16→20:37)
[2020-06-26] MEDS: FOLIC ACID 1 MG TABLET PO SCH (09:16)
[2020-06-26] MEDS: LOPERAMIDE HCL 2 MG CAPSULE PO PRN (09:16)
[2020-06-26] MEDS: CARVEDILOL 12.5 MG TABLET (COREG) PO SCH ×2 (09:17→20:36)
[2020-06-26 11:31] VITALS: BP_SYST 94
[2020-06-26 15:33] VITALS: BP_SYST 103
[2020-06-26] MEDS: EPOETIN ALFA 3,000 UNITS/ML VIAL SUBCUT SCH (17:00)
[2020-06-26 17:27] VITALS: BP_SYST 112
[2020-06-26 20:00] VITALS: BP_SYST 117
[2020-06-27] VITALS: BP_SYST 112
[2020-06-27] MEDS: LORazepam 2 MG/ML VIAL IVP PRN ×3 (04:35→14:49)
[2020-06-27 08:00] VITALS: BP_SYST 102
[2020-06-27] MEDS: MUPIROCIN 2% TOPICAL OINTMENT 22 GM NS SCH (09:00)
[2020-06-27] MEDS: DOXYCYCLINE HYCLATE 100 MG CAPSULE PO SCH (09:47)
[2020-06-27] MEDS: FOLIC ACID 1 MG TABLET PO SCH (09:47)
[2020-06-27] MEDS: CARVEDILOL 12.5 MG TABLET (COREG) PO SCH (09:47)
[2020-06-27 12:14] VITALS: BP_SYST 98
[2020-06-27 14:23] LABS: EOSINOPHILS # (AUTO) 0.2 K/uL (0.0-0.4); EOSINOPHILS % (AUTO) 4.4 % (0.0-4.0); HEMOGLOBIN 7.2 g/dL (14.0-18.0); LYMPHOCYTES # (AUTO) 0.9 K/uL (1.0-5.5); LYMPHOCYTES % (AUTO) 27.6 % (20.5-51.5); MEAN CORPUSCULAR HEMOGLOBIN 30 pg (27-31); MEAN CORPUSCULAR HGB CONC 34 % (32-36); MEAN CORPUSCULAR VOLUME 91 fL (79.0-98.0); MONOCYTES # (AUTO) 0.3 K/uL (0.0-1.0); MONOCYTES % (AUTO) 8.6 % (1.7-9.3); PLATELET COUNT (AUTO) 137 K/uL (130-430); RED BLOOD CELL COUNT(AUTO) 2.37 MIL/uL (4.2-6.2); WHITE BLOOD COUNT (AUTO) 3.4 K/uL (4.8-10.8)
[2020-06-27 14:35] LABS: HEMATOCRIT 21.5 % (36-54); NEUTROPHILS % (AUTO) 59.2 % (40.0-70.0)
[2020-06-27 14:36] LABS: BASOPHILS % (AUTO) 0.2 % (0.0-2.0); NEUTROPHILS # (AUTO) 2.1 K/uL (1.8-7.7)
[2020-06-27 14:37] LABS: CALCIUM 7.6 mg/dL (8.4-11.0); CREATININE 4.91 mg/dL (0.55-1.30); POTASSIUM 4.1 mmol/L (3.5-5.1)
[2020-06-27 16:03] VITALS: BP_SYST 107
[2020-06-27 19:45] VITALS: BP_SYST 113
== END 2020-06-27 20:35 | disposition home or self-care (01) | DRG 811 ==
LOC: SED 15:00 → SMU 19:04 → SIC 20:27 → SMU 06-23 18:55 → STU 06-23 20:39
PROVIDERS: ADMIT Internal Medicine; ATTEND Internal Medicine
PROC: 30233N1 Transfusion of Nonautologous Red Blood Cells into Peripheral Vein, Percutaneous Approach (ICD-10-PCS; principal; 2020-06-23)
PROC: 5A1D70Z Performance of Urinary Filtration, Intermittent, Less than 6 Hours Per Day (ICD-10-PCS; 2020-06-23)
PROC: 5A1D70Z Performance of Urinary Filtration, Intermittent, Less than 6 Hours Per Day (ICD-10-PCS; 2020-06-26)
DX: D64.9 Anemia, unspecified (principal); N18.6 End stage renal disease; D47.Z2 Castleman disease; E87.1 Hypo-osmolality and hyponatremia; D47.9 Neoplasm of uncertain behavior of lymphoid, hematopoietic and related tissue, unspecified; J44.9 Chronic obstructive pulmonary disease, unspecified; E16.2 Hypoglycemia, unspecified; N28.9 Disorder of kidney and ureter, unspecified; E87.6 Hypokalemia; Z20.828 Contact with and (suspected) exposure to other viral communicable diseases; D72.819 Decreased white blood cell count, unspecified; Z99.2 Dependence on renal dialysis; Z88.1 Allergy status to other antibiotic agents; Z79.899 Other long term (current) drug therapy; Z88.8 Allergy status to other drugs, medicaments and biological substances
CPT/HCPCS: 36415; 36430; 71045; 80048; 80061; 82607; 82728; 82746; 83540-TC; 83550-TC; 84443-TC; 85025; 85044-TC; 85610-TC; 86870; 86886; 86900; 86901; 86920; 87081; 90935; 90937; 93005; 96374; 99291; G0378; J0885; J1940; J2060; J7030; J7050; P9021

== ENCOUNTER 2020-07-02 03:47 | Inpatient (IN) | payer OTHER, MEDICAID, SELFPAY ==
[~2020-07-02] VITALS: Ht 162.6 cm; Wt 40.8 kg
[2020-07-02 04:45] VITALS: BP_SYST 112
--- NOTE | 2020-07-02 04:45 | NUR ---
Patient to ER bed 3 to gown for evaluation. Side rails up.
--- NOTE | 2020-07-02 04:50 | NUR ---
Patient came to ER. C/O vomitting x today. Per patient, missed dialysis yesterday (), last night vomitting x 2 times, cough. A/O,X4, weakness, no SOB, vss.
--- NOTE | 2020-07-02 04:51 | NUR ---
ER Dr. Pagan at bedside examining patient.
--- NOTE | 2020-07-02 05:22 | NUR ---
Blood for labwork drawn from angiography nurse. Patient tolerated well.
[2020-07-02 05:34] LABS: BASOPHILS # (AUTO) 0.1 K/uL (0.0-0.2); BASOPHILS % (AUTO) 1.4 % (0.0-2.0); EOSINOPHILS # (AUTO) 0.1 K/uL (0.0-0.4); EOSINOPHILS % (AUTO) 2.9 % (0.0-4.0); LYMPHOCYTES # (AUTO) 1.1 K/uL (1.0-5.5); LYMPHOCYTES % (AUTO) 29.9 % (20.5-51.5); MEAN CORPUSCULAR HEMOGLOBIN 31 pg (27-31); MEAN CORPUSCULAR HGB CONC 35 % (32-36); MEAN CORPUSCULAR VOLUME 90 fL (79.0-98.0); MONOCYTES # (AUTO) 0.3 K/uL (0.0-1.0); MONOCYTES % (AUTO) 8.1 % (1.7-9.3); NEUTROPHILS # (AUTO) 2.2 K/uL (1.8-7.7); NEUTROPHILS % (AUTO) 57.7 % (40.0-70.0); PLATELET COUNT (AUTO) 138 K/uL (130-430); RED BLOOD CELL COUNT(AUTO) 2.17 MIL/uL (4.2-6.2); RED CELL DISTRIBUTION WIDTH 15.9 % (9.0-15.0); WHITE BLOOD COUNT (AUTO) 3.7 K/uL (4.8-10.8)
[2020-07-02 05:38] LABS: HEMOGLOBIN 6.7 g/dL (14.0-18.0)
[2020-07-02 05:39] LABS: HEMATOCRIT 19.5 % (36-54)
[2020-07-02 05:42] LABS: ANION GAP 8 (5-15); CHLORIDE 96 mmol/L (98-107); GLUCOSE 78 mg/dL (70-99); SODIUM SERUM 128 mmol/L (136-145); UREA NITROGEN, BLOOD 51 mg/dL (8-21)
[2020-07-02 05:44] LABS: INR 1.2 (0.80-1.20); PROTHROMBIN TIME 12.7 SECS (9.5-12.5)
[2020-07-02 05:51] LABS: ALANINE AMINOTRANSFERASE 10 U/L (12-78); ALBUMIN 1.7 g/dL (3.4-4.8); ASPARTATE AMINOTRANSFERASE 15 U/L (10-37); LIPASE 77 U/L (73-393); TOTAL BILIRUBIN 2.6 mg/dL (0.0-1.0)
[2020-07-02 05:54] LABS: CREATININE 9.88 mg/dL (0.55-1.30); GFR AFRICAN AMERICAN 7 mL/min (>90); POTASSIUM 6.9 mmol/L (3.5-5.1)
--- NOTE | 2020-07-02 06:15 | NUR ---
# 20 gauge angiocath placed to right forearm. Use of asceptic technique. Opsite placed over site. Blood return noted. Blood for lab drawn from site. Flushed with 10 cc of normal saline. No evidence of infiltration noted. Patient tolerated well.
--- NOTE | 2020-07-02 06:50 | NUR ---
Swabbed MRSA as protocol and sent to lab.
--- NOTE | 2020-07-02 07:04 | NUR ---
Care of patient endorsed to SHAHZAD Fuentes.
--- NOTE | 2020-07-02 07:55 | NUR ---
Patient will be admitted to care [facility]. Admitted to Tele unit. Will go to room 111A. Belongings list completed. Complete and up to date summary report printed. SBAR report to be given at bedside with opportunity for questions. Addendum: 07/02/20 at 0755 by SDEDDW Patient will be admitted to [facility]. Admitted to Tele unit. Will go to room 111A. Belongings list completed. Complete and up to date summary report printed. SBAR report to be given at bedside with opportunity for questions.
--- NOTE | 2020-07-02 08:46 | NUR ---
CONSULTATION PAGED/CALLED Reason for Consultation: [] ESRD Person Who was Notified: [] DR TREVIÑO Consulting Physician: [] DR PADILLA, DR TREVIÑO GASOLINE PLANT OPERATOR Machine Shop Lead Man Specialty: [] NEPHROLOGY Ordering Physician: [] DR WELLS
--- NOTE | 2020-07-02 09:00 | NUR ---
ADMISSION: The patient, LASHAE ISBELL, 45 y/o, M admitted by CANDELARIO WELLS MD, was given written information regarding hospital policies, unit procedures and contact persons. Valuables were checked and personal belongings completed. Addendum: 07/02/20 at 0936 by Ryder Elmore RN Received plan of care via sbar from endorsing
[2020-07-02] MEDS ORDERED: traMADol HCL HCL 50 MG TABLET (ULTRAM) PO PRN (10:30)
[2020-07-02] MEDS ORDERED: ACETAMINOPHEN 325 MG TABLET PO PRN (10:30)
[2020-07-02] MEDS ORDERED: CARVEDILOL 12.5 MG TABLET (COREG) PO ONE ×2 (11:00→12:30)
[2020-07-02 11:08] VITALS: BP_SYST 145
[2020-07-02] MEDS: LORazepam 1 MG TABLET PO PRN ×2 (11:25→21:16)
[2020-07-02] MEDS ORDERED: MUPIROCIN 2% TOPICAL OINTMENT 22 GM NS ONE (11:30)
[2020-07-02 12:23] VITALS: BP_SYST 123
--- NOTE | 2020-07-02 12:25 | NUR ---
Patient in bed watching television. Patient not presenting any signs of distress.
[2020-07-02 14:16] LABS: BASOPHILS # (AUTO) 0.1 K/uL (0.0-0.2); BASOPHILS % (AUTO) 3.1 % (0.0-2.0); EOSINOPHILS # (AUTO) 0.1 K/uL (0.0-0.4); EOSINOPHILS % (AUTO) 6.1 % (0.0-4.0); HEMATOCRIT 21.6 % (36-54); HEMOGLOBIN 7.4 g/dL (14.0-18.0); LYMPHOCYTES # (AUTO) 0.5 K/uL (1.0-5.5); MEAN CORPUSCULAR HEMOGLOBIN 31 pg (27-31); MEAN CORPUSCULAR HGB CONC 34 % (32-36); MEAN CORPUSCULAR VOLUME 91 fL (79.0-98.0); MONOCYTES # (AUTO) 0.2 K/uL (0.0-1.0); MONOCYTES % (AUTO) 7.1 % (1.7-9.3); NEUTROPHILS # (AUTO) 1.5 K/uL (1.8-7.7); NEUTROPHILS % (AUTO) 62.7 % (40.0-70.0); PLATELET COUNT (AUTO) 145 K/uL (130-430); RED BLOOD CELL COUNT(AUTO) 2.39 MIL/uL (4.2-6.2); RED CELL DISTRIBUTION WIDTH 15.7 % (9.0-15.0); WHITE BLOOD COUNT (AUTO) 2.3 K/uL (4.8-10.8)
--- NOTE | 2020-07-02 15:00 | NUR ---
Patient in bed receiving blood transfusion. Patient vitals within limits and no signs of adverse reaction.
[2020-07-02 15:59] LABS: POTASSIUM 2.9 mmol/L (3.5-5.1)
[2020-07-02 16:00] LABS: CALCIUM 8.3 mg/dL (8.4-11.0); CREATININE 4.4 mg/dL (0.55-1.30)
[2020-07-02 16:06] VITALS: BP_SYST 121
--- NOTE | 2020-07-02 19:03 | NUR ---
Closing Note Provided plan of care via sbar to receiving RN.
--- NOTE | 2020-07-02 19:20 | NUR ---
initial notes: ptis on bed resting, wakes up when called by name, no pain, not distress. ongoing blood transfusion, second unit, tolerating well. needs attended, call light in reach. side rails up. low bed position. will monitor.
[2020-07-02 19:30] VITALS: BP_SYST 125
--- NOTE | 2020-07-02 20:20 | NUR ---
blood transfusion done, no signof transfusion reaction, assisted pt to bathroom , back to bed, needs attended.
[2020-07-02] MEDS: MUPIROCIN 2% TOPICAL OINTMENT 22 GM NS SCH (21:14)
[2020-07-02] MEDS: CARVEDILOL 12.5 MG TABLET (COREG) PO SCH (21:16)
--- NOTE | 2020-07-02 22:00 | NUR ---
awake, alert, watching tv. no pain, no sob, stable, needs attended.
[2020-07-03] VITALS: BP_SYST 119
--- NOTE | 2020-07-03 00:04 | NUR ---
sleeping, no pain, stable vital sign. safety precaution in place.
--- NOTE | 2020-07-03 02:13 | NUR ---
awake, alert, watching tv. no pain, stable. needs attended.
--- NOTE | 2020-07-03 04:15 | NUR ---
sleeping, comfortable. no pain, not distress, weigh pt. call light in reach.
--- NOTE | 2020-07-03 06:11 | NUR ---
sleeping, no distress,no pain. stable.
--- NOTE | 2020-07-03 06:38 | NUR ---
closing: pt is resting, no pain, no sign of distress, stable. needs attended the whole shift. safety precaution in place. will sbar report to am rn.
[2020-07-03 07:03] LABS: ALBUMIN 1.5 g/dL (3.4-4.8); CALCIUM 7.4 mg/dL (8.4-11.0); CREATININE 5.3 mg/dL (0.55-1.30); POTASSIUM 3.6 mmol/L (3.5-5.1); TOTAL BILIRUBIN 2.2 mg/dL (0.0-1.0)
--- NOTE | 2020-07-03 07:21 | NUR ---
Nutrition Update Nigel Scale 17 noted. Pt admitted for Sepsis, Fluid overload Diet: Renal standard BMI: 15.4 kg/m2 RD to follow per nutrition care standards.
--- NOTE | 2020-07-03 07:25 | NUR ---
AM ROUNDS: PATIENT AWAKE ON THE BED. LEFT AV SHUNT INTACT. CALL LIGHT WITH IN REACH. BED LOCKED AT LOWEST POSITION. NO ACUTE DISTRESS.
[2020-07-03 08:07] VITALS: BP_SYST 122
[2020-07-03 08:16] LABS: BASOPHILS # (AUTO) 0.1 K/uL (0.0-0.2); BASOPHILS % (AUTO) 1.8 % (0.0-2.0); EOSINOPHILS # (AUTO) 0.1 K/uL (0.0-0.4); EOSINOPHILS % (AUTO) 4.4 % (0.0-4.0); HEMATOCRIT 24.1 % (36-54); HEMOGLOBIN 8.1 g/dL (14.0-18.0); LYMPHOCYTES # (AUTO) 0.9 K/uL (1.0-5.5); LYMPHOCYTES % (AUTO) 30.6 % (20.5-51.5); MEAN CORPUSCULAR HEMOGLOBIN 30 pg (27-31); MEAN CORPUSCULAR HGB CONC 34 % (32-36); MEAN CORPUSCULAR VOLUME 88 fL (79.0-98.0); MONOCYTES # (AUTO) 0.3 K/uL (0.0-1.0); MONOCYTES % (AUTO) 9.2 % (1.7-9.3); NEUTROPHILS # (AUTO) 1.6 K/uL (1.8-7.7); PLATELET COUNT (AUTO) 142 K/uL (130-430); RED BLOOD CELL COUNT(AUTO) 2.75 MIL/uL (4.2-6.2); RED CELL DISTRIBUTION WIDTH 17.1 % (9.0-15.0); WHITE BLOOD COUNT (AUTO) 2.9 K/uL (4.8-10.8)
--- NOTE | 2020-07-03 08:20 | NUR ---
REFUSE PROCRIT: PATIENT REFUSED PROCRIT SC ,TEACHINGS GIVEN ,BENEFIT OF THE MEDS ,STILL REFUSE TO HAVE IT,AFRAID OF NEEDLES AND STATED IT IS PAINFUL.
[2020-07-03] MEDS: CARVEDILOL 12.5 MG TABLET (COREG) PO SCH (08:50)
[2020-07-03] MEDS: MUPIROCIN 2% TOPICAL OINTMENT 22 GM NS SCH (08:51)
[2020-07-03] MEDS ORDERED: EPOETIN ALFA 10,000 UNITS/ML VIAL SUBCUT SCH (09:00)
--- NOTE | 2020-07-03 12:00 | NUR ---
LUNCH : SERVE LUNCH TRAY. NEEDS ATTENDED TO.
[2020-07-03 12:10] VITALS: BP_SYST 104
--- NOTE | 2020-07-03 13:35 | NUR ---
RN ROUNDS: SLEEPING DURING ROUNDS. STABLE.
--- NOTE | 2020-07-03 13:52 | NUR ---
DC TELEMETRY: DOWNGRADE PATIENT TO MEDICAL SURGICAL ORDERED.
--- NOTE | 2020-07-03 14:29 | NUR ---
Nephro Paged: Called Dr Lozano's exchange and left message c/o Torie for clearance.
[2020-07-03 14:43] VITALS: BP_SYST 100
--- NOTE | 2020-07-03 15:06 | NUR ---
A FOLLOW UP CALL WAS CALLED TO DR PADILLA, THE PEACE OFFICER FOR DISCHARGE CLEARANCE TO HOME. SPOKE TO THONY.
--- NOTE | 2020-07-03 15:10 | NUR ---
Nephro call back: Molly charge nurse spoke to Dr Lozano,patient cleared for discharge home.
[2020-07-03 15:17] VITALS: BP_SYST 100
--- NOTE | 2020-07-06 10:02 | NUR ---
SS NOTES/DISCHARGE FOLLOW UP CALL: POWER SUPERINTENDENT received a call back from Dylan's father who stated that pt is "eating more than usual" and "not coughing as much" as in the past. Father stated patient has an appt with PCP next week and has continues his dialysis at the center. Pt was also able to fill prescription and no concerns/questions regarding discharge instructions. No further SS call needed.
== END 2020-07-03 16:10 | disposition home or self-care (01) | DRG 640 ==
LOC: SED 03:47 → STU 06:41 → SMU 07-03 14:36
PROVIDERS: ADMIT Internal Medicine; ATTEND Internal Medicine
PROC: 30233N1 Transfusion of Nonautologous Red Blood Cells into Peripheral Vein, Percutaneous Approach (ICD-10-PCS; principal; 2020-07-02)
PROC: 5A1D70Z Performance of Urinary Filtration, Intermittent, Less than 6 Hours Per Day (ICD-10-PCS; 2020-07-02)
DX: E87.5 Hyperkalemia (principal); E43 Unspecified severe protein-calorie malnutrition; N18.6 End stage renal disease; I50.42 Chronic combined systolic (congestive) and diastolic (congestive) heart failure; D47.Z2 Castleman disease; I42.9 Cardiomyopathy, unspecified; Z68.1 Body mass index [BMI] 19.9 or less, adult; Z20.828 Contact with and (suspected) exposure to other viral communicable diseases; F43.23 Adjustment disorder with mixed anxiety and depressed mood; D63.8 Anemia in other chronic diseases classified elsewhere; Z88.1 Allergy status to other antibiotic agents; Z88.8 Allergy status to other drugs, medicaments and biological substances; Z79.899 Other long term (current) drug therapy; Z91.19 Patient's noncompliance with other medical treatment and regimen
CPT/HCPCS: 36415; 36430; 71045; 80048; 80053; 83690-TC; 83880; 84484; 85025; 85610-TC; 86870; 86886; 86900; 86901; 86920; 87081; 90935; 99285; G0378; J0885; J7050; P9021

== ENCOUNTER 2020-07-12 21:12 | Emergency (ER) | payer OTHER, MEDICAID ==
[~2020-07-12] VITALS: Ht 165.1 cm; Wt 41.3 kg
[2020-07-12 21:20] VITALS: BP_SYST 114
[2020-07-12] MEDS ORDERED: CARV12.548 PO (21:25)
[2020-07-12] MEDS ORDERED: GABA-529 PO (21:25)
[2020-07-12] MEDS ORDERED: DOXY100C PO (21:25)
[2020-07-12] MEDS ORDERED: VIS25 PO (21:25)
--- NOTE | 2020-07-12 21:25 | NUR ---
Placed in room 02 . Placed on director of manufacturing operations, blood pressure machine and pulse oximeter. To gown for exam. Side rails up.
[2020-07-12] MEDS ORDERED: ONDANSETRON 4 MG ODT TAB PO ONE (21:30)
--- NOTE | 2020-07-12 21:30 | NUR ---
PT PRESENTS FROM HOME WITH C/O N/V AND DIARRHEA STARTING YETERDAY WITH SOME GENERALIZED WEAKNESS. DENIES ABD PAIN. HX OF CASTLEMAN'S DISEASE. AAOX4, V/S STABLE
--- NOTE | 2020-07-12 21:33 | NUR ---
DR. BOYLE AT THE BEDSIDE EVALUATING PT
--- NOTE | 2020-07-12 21:37 | NUR ---
LAB AT THE BEDSIDE
[2020-07-12 21:43] LABS: EOSINOPHILS # (AUTO) 0.1 K/uL (0.0-0.4); HEMOGLOBIN 8.4 g/dL (14.0-18.0); WHITE BLOOD COUNT (AUTO) 2.9 K/uL (4.8-10.8)
[2020-07-12 21:51] LABS: BASOPHILS % (AUTO) 0.7 % (0.0-2.0); EOSINOPHILS % (AUTO) 2.7 % (0.0-4.0); HEMATOCRIT 24.8 % (36-54); MEAN CORPUSCULAR HEMOGLOBIN 30 pg (27-31); MEAN CORPUSCULAR HGB CONC 34 % (32-36); MEAN CORPUSCULAR VOLUME 88 fL (79.0-98.0); MONOCYTES # (AUTO) 0.3 K/uL (0.0-1.0); MONOCYTES % (AUTO) 9.6 % (1.7-9.3); NEUTROPHILS # (AUTO) 1.5 K/uL (1.8-7.7); RED BLOOD CELL COUNT(AUTO) 2.84 MIL/uL (4.2-6.2); RED CELL DISTRIBUTION WIDTH 17.1 % (9.0-15.0)
[2020-07-12 21:59] LABS: PLATELET COUNT (AUTO) 103 K/uL (130-430)
[2020-07-12 22:01] LABS: CALCIUM 8.3 mg/dL (8.4-11.0); CREATININE 5.93 mg/dL (0.55-1.30); POTASSIUM 3.4 mmol/L (3.5-5.1)
[2020-07-12 22:07] LABS: ALBUMIN 1.7 g/dL (3.4-4.8); TOTAL BILIRUBIN 2.8 mg/dL (0.0-1.0)
[2020-07-12 22:49] VITALS: BP_SYST 114
--- NOTE | 2020-07-12 22:51 | NUR ---
Patient given written and verbal discharge instructions and verbalizes understanding. ER MD discussed with patient the results and treatment provided. Patient in stable condition. ID arm band removed. Rx of ZOFRAM given. Patient educated on pain management and to follow up with PMD. Pain Scale 0/10. Opportunity for questions provided and answered. Medication side effect fact sheet provided.
== END 2020-07-12 22:51 | disposition home or self-care (01) ==
LOC: SED 21:12
DX: R11.2 Nausea with vomiting, unspecified (principal); N18.6 End stage renal disease; Z79.899 Other long term (current) drug therapy; Z88.1 Allergy status to other antibiotic agents
CPT/HCPCS: 36415; 80053; 85025; 99283; Q0162

== ENCOUNTER 2020-07-28 20:34 | Inpatient (IN) | payer OTHER, MEDICAID, SELFPAY ==
[~2020-07-28] VITALS: Ht 165.1 cm; Wt 38.1 kg
[~2020-07-28 20:34] MED LIST changes: -BACTROBAN NS; +DOXY100C PO; +GABA-529 PO; +VIS25 PO
[2020-07-28 20:45] VITALS: BP_SYST 116
--- NOTE | 2020-07-28 20:45 | NUR ---
Patient to ER bed 2 to gown for evaluation. Side rails up. Report given to JANUARY.
--- NOTE | 2020-07-28 20:48 | NUR ---
Patient came to ER with family. C/O Generalized weakness x today. Patient had weakness today, Dialysis yesterday, reported lac of appetite, Hx ESRD (Dialysis ), Castleman disease. A/O,X4, generalized weakness, denies pain, place on director of cardiac cath lab and pulse ox.
--- NOTE | 2020-07-28 21:40 | NUR ---
ER Dr. Pagan at bedside examining patient.
--- NOTE | 2020-07-28 21:56 | NUR ---
X-ray at bedside.
--- NOTE | 2020-07-28 21:59 | NUR ---
Blood for labwork drawn from switch crew supervisor. Patient tolerated well.
[2020-07-28 22:15] LABS: MEAN CORPUSCULAR HEMOGLOBIN 29 pg (27-31); MEAN CORPUSCULAR HGB CONC 34 % (32-36); MEAN CORPUSCULAR VOLUME 85 fL (79.0-98.0); PLATELET COUNT (AUTO) 113 K/uL (130-430); RED BLOOD CELL COUNT(AUTO) 2.28 MIL/uL (4.2-6.2); RED CELL DISTRIBUTION WIDTH 17.3 % (9.0-15.0); WHITE BLOOD COUNT (AUTO) 2.9 K/uL (4.8-10.8)
[2020-07-28 22:24] LABS: HEMATOCRIT 19.3 % (36-54); HEMOGLOBIN 6.5 g/dL (14.0-18.0)
[2020-07-28 22:28] LABS: ANION GAP 0 (5-15); CALCIUM 8.4 mg/dL (8.4-11.0); CHLORIDE 97 mmol/L (98-107); CREATININE 4.59 mg/dL (0.55-1.30); GLUCOSE 72 mg/dL (70-99); POTASSIUM 4.8 mmol/L (3.5-5.1); SODIUM SERUM 132 mmol/L (136-145); UREA NITROGEN, BLOOD 18 mg/dL (8-21)
[2020-07-28 22:30] LABS: GFR AFRICAN AMERICAN 18 mL/min (>90)
[2020-07-28 22:33] LABS: ALANINE AMINOTRANSFERASE 8 U/L (12-78); ALBUMIN 1.6 g/dL (3.4-4.8); ASPARTATE AMINOTRANSFERASE 13 U/L (10-37); TOTAL BILIRUBIN 2.8 mg/dL (0.0-1.0)
--- NOTE | 2020-07-28 23:05 | NUR ---
# 20 gauge angiocath placed to right hand by SHAHZAD Srivastava. Use of asceptic technique. Opsite placed over site. Blood return noted. Blood for lab drawn from site. Flushed with 10 cc of normal saline. No evidence of infiltration noted. Patient tolerated well.
[2020-07-28 23:07] LABS: ATYPICAL LYMPHOCYTES % 0 % (0-0); BAND % (MANUAL) 0 % (0-6); BASOPHILS % (MANUAL) 0 % (0-2); EOSINOPHILS % (MANUAL) 4 % (0-7); LYMPHOCYTES % (MANUAL) 39 % (20-46); MONOCYTES % (MANUAL) 12 % (0-11)
--- NOTE | 2020-07-28 23:20 | NUR ---
MRSA and Covid-19 swab and send to lab.
--- NOTE | 2020-07-28 23:43 | NUR ---
Patient will be admitted to care of Dr. Colon. Admitted to M/S unit. Will go to room 133A. Belongings list completed. Complete and up to date summary report printed. SBAR report to be given at bedside with opportunity for questions.
--- NOTE | 2020-07-28 23:44 | NUR ---
JENNIFER Colon at bedside examining patient.
--- NOTE | 2020-07-28 23:52 | NUR ---
ADMIT NOTE Received pt from ER to the floor with a diagnosis of severe anemia. Admission process initiated. patient oriented to pain management, safety and call light-teach back done.
[2020-07-29] MEDS ORDERED: traMADol HCL HCL 50 MG TABLET (ULTRAM) PO PRN
[2020-07-29] MEDS ORDERED: ACETAMINOPHEN 325 MG TABLET PO PRN
[2020-07-29] MEDS ORDERED: DIPHENHYDRAMINE INJ 50 MG/ML VIAL IVP PRN
--- NOTE | 2020-07-29 00:11 | NUR ---
CONSULTATION PAGED/CALLED Reason for Consultation: ESRD Person Who was Notified:EXCHANGE Consulting Physician: VALERIE TREVIÑO IS MECHANICAL DESIGN ENGINEER Relationship Counselor Specialty: Ordering Physician: PRISCILLA
[2020-07-29 00:12] VITALS: BP_SYST 106
[2020-07-29] MEDS ORDERED: LORazepam 2 MG/ML VIAL IVP PRN (00:15)
--- NOTE | 2020-07-29 00:20 | NUR ---
INITIAL NOTE AT INITIAL ASSESSMENT, PATIENT IS RESTING IN BED, STABLE, NO SIGNS OF RESPIRATORY DISTRESS. PATIENT VERBALIZES NO PAIN. PLAN OF CARE FOR THE EVENING IS COMMUNICATED WITH THE PATIENT. PATIENT DEMONSTRATES CORRECT USAGE OF CALL LIGHT AT THIS TIME. BED IS LOCKED, ALARMED, AND AT THE LOWEST LEVEL. FALL SAFETY EDUCATION PROVIDED. FALL, SAFETY, AND RESPIRATORY PRECAUTIONS WILL BE TAKEN THROUGHOUT THE SHIFT.
--- NOTE | 2020-07-29 00:35 | NUR ---
HIGH ALERT NOTE: DR. WELLS Called Dr. WELLS back at [phone] identified within the medical roster to verify physician authenticity FOR ATIVAN ORDERED.
--- NOTE | 2020-07-29 00:50 | NUR ---
ANXIETY NOTE PATIENT IS COMPLAINING OF ANXIETY, PRN MEDICATION WILL BE GIVEN AT THIS TIME FOR PATIENTS ANXIETY COMPLAINT PER MD ORDERS. WILL REASSESS IF PRN MEDICATION GIVEN WAS EFFECTIVE. CALL LIGHT PLACED WITHIN REACH. BED IS LOCKED, ALARMED, AND AT THE LOWEST LEVEL.
[2020-07-29] MEDS: LORazepam 2 MG/ML VIAL IVP PRN ×3 (00:54→20:54)
[2020-07-29 02:18] LABS: BILIRUBIN,URINE NEGATIVE (NEGATIVE); BLOOD, URINE NEGATIVE (NEGATIVE); CLARITY/URINE CLEAR (CLEAR); COLOR,URINE YELLOW (YELLOW); GLUCOSE,URINE NEGATIVE (NEGATIVE); KETONES,URINE NEGATIVE (NEGATIVE); LEUKOCYTE ESTERASE ,URINE NEGATIVE (NEGATIVE); NITRITE, URINE NEGATIVE (NEGATIVE); PROTEIN URINE NEGATIVE (NEGATIVE); UROBILINOGEN,URINE 0.2 (0.2-1.0)
--- NOTE | 2020-07-29 02:50 | NUR ---
NOTE PATIENT IS SLEEPING, STABLE, NO SIGNS OF RESPIRATORY DISTRESS. CALL LIGHT IS WITHIN REACH. BED IS LOCKED, ALARMED, AND AT THE LOWEST LEVEL.
--- NOTE | 2020-07-29 04:45 | NUR ---
NOTE PATIENT IS SLEEPING, STABLE, NO SIGNS OF RESPIRATORY DISTRESS. CALL LIGHT IS WITHIN REACH. BED IS LOCKED, ALARMED, AND AT THE LOWEST LEVEL.
--- NOTE | 2020-07-29 05:45 | NUR ---
NOTE PATIENT IS SLEEPING, STABLE, NO SIGNS OF RESPIRATORY DISTRESS. CALL LIGHT IS WITHIN REACH. BED IS LOCKED, ALARMED, AND AT THE LOWEST LEVEL.
--- NOTE | 2020-07-29 07:37 | NUR ---
CLOSING NOTE PATIENT SLEPT WELL THROUGHOUT THE SHIFT, NO SHORTNESS OF BREATH NOTED. AT THIS TIME, PATIENT IS RESTING IN BED, STABLE, NO SIGNS OF RESPIRATORY DISTRESS. CALL LIGHT IS WITHIN REACH. BED IS LOCKED, ALARMED, AND AT THE LOWEST LEVEL. FALL, SAFETY, AND RESPIRATORY PRECAUTIONS HAVE BEEN TAKEN THROUGHOUT THE SHIFT. WILL CONTINUE TO MONITOR UNTIL SHIFT REPORT IS GIVEN AT BEDSIDE TO AM NURSE.
[2020-07-29 08:00] VITALS: BP_SYST 123
--- NOTE | 2020-07-29 08:00 | NUR ---
Patient is resting, A/Ox4. IV site on right hand, #20, SL. AV Shunt on the left upper arm, bruit and thrill detected, Instructed to use call light for needs, bed locked at the lowest position, will continue to monitor.
[2020-07-29] MEDS: CARVEDILOL 12.5 MG TABLET (COREG) PO SCH ×2 (09:00→20:06)
--- NOTE | 2020-07-29 10:13 | NUR ---
Nutrition Update Nigel Scale 18 noted. Pt admitted for severe anemia. Diet: 2 gm Na BMI: 14.6 kg/m2 RD to follow per nutrition care standards.
--- NOTE | 2020-07-29 10:20 | NUR ---
RN called blood bank to ask for an update for the blood. Blood bank indicates that the blood appropriate for patient's blood type is not ready yet.
--- NOTE | 2020-07-29 11:00 | NUR ---
DR. WELLS IS AT BEDSIDE ROUNDING, AND HE IS INFORMED OF THE CURRENT SITUATION WITH PATIENT'S BLOOD.
[2020-07-29 11:31] VITALS: BP_SYST 119
--- NOTE | 2020-07-29 13:11 | NUR ---
PATIENT FINISHES LUNCH. TOLERATED WITHOUT DISTRESS.
--- NOTE | 2020-07-29 14:00 | NUR ---
DR. TREVIÑO, THE ASSOCIATE, WAS INFORMED ABOUT THE CURRENT SITUATION WITH THE PATIENT'S PROPER BLOOD TYPE. INSTRUCTED RN TO GIVE BLOOD WITH HEMODIALYSIS.
[2020-07-29 15:37] VITALS: BP_SYST 111
--- NOTE | 2020-07-29 16:00 | NUR ---
PATIENT IS RESTING AT THIS TIME. NO SIGNS OF DISTRESS NOTED.
--- NOTE | 2020-07-29 18:05 | NUR ---
Dietitian Recommendations * Recommend 2 gm Na diet w/ Nepro TID, Puma BID (ONS provides 1435 kcal/day, 62 gm protein/day) * Encourage increase PO intakes LP, RD Please refer to Nutrition Assessment for details. Addendum: 07/29/20 at [address] Amended: Links added.
[2020-07-29 19:45] VITALS: BP_SYST 112
--- NOTE | 2020-07-29 19:45 | NUR ---
INITIAL NOTE PATIENT IS STABLE AND LAYING IN BED. NO S/S OF RESPIRATORY DISTRESS NOTED. CALL LIGHT IN REACH. PATIENT SUCCESSFULLY DEMONSTRATES USAGE OF CALL LIGHT. BED IS LOCKED, ALARMED, AND AT THE LOWEST POSITION. FALL, SAFETY, ASPIRATION, AND RESPIRATORY PRECAUTION WILL BE IN PLACE THROUGHOUT THE SHIFT. PLAN OF CARE IS DISCUSSED WITH PATIENT.
[2020-07-29] MEDS: GABAPENTIN 100 MG CAPSULE PO SCH (20:05)
--- NOTE | 2020-07-29 20:05 | NUR ---
PATIENT EDUCATED ON MEDICATION USING THE MEDICATION SIDE EFFECT SHEET. PATIENT REFUSED. WILL CONTINUE TO EDUCATE.
--- NOTE | 2020-07-29 22:05 | NUR ---
PATIENT WALKED TO THE RESTROOM AT THIS TIME. PATIENT WAS WEAK, BUT TOLERATED WELL. NO S/S OF RESPIRATORY DISTRESS NOTED. CALL LIGHT IN REACH.
[2020-07-29 23:56] VITALS: BP_SYST 120
--- NOTE | 2020-07-30 00:16 | NUR ---
SBAR REPORT ENDORSED TO SHAHZAD SMITH. PATIENT IS STABLE AND SLEEPING IN BED. NO S/S OF RESPIRATORY DISTRESS NOTED. CALL LIGHT IN REACH.
--- NOTE | 2020-07-30 00:16 | NUR ---
TRANSFER OF CARE FROM [facility]: Received report from Cornelio. Patient is laying in bed and appears to be asleep. He is not exhibiting any s/s of distress or discomfort. Ensured all safety precautions, bed is in the lowest position and call light within reach.
--- NOTE | 2020-07-30 02:51 | NUR ---
RN ROUNDS: Patient is laying in bed and continues to be asleep. He is in stable condition. will continue to monitor.
[2020-07-30 07:36] LABS: CALCIUM 8.3 mg/dL (8.4-11.0); CREATININE 5.85 mg/dL (0.55-1.30); PHOSPHORUS 4.1 mg/dL (2.7-4.5); POTASSIUM 5.2 mmol/L (3.5-5.1)
--- NOTE | 2020-07-30 07:44 | NUR ---
CLOSING NOTES: Patient is laying in bed, alert and oriented x4. He has no s/s of distress or discomfort. All needs were met throughout shift. Will endorse to dayshift nurse.
[2020-07-30 07:52] VITALS: BP_SYST 115
[2020-07-30 08:06] LABS: BASOPHILS # (AUTO) 0.1 K/uL (0.0-0.2); EOSINOPHILS # (AUTO) 0.1 K/uL (0.0-0.4); EOSINOPHILS % (AUTO) 3.4 % (0.0-4.0); LYMPHOCYTES # (AUTO) 1.2 K/uL (1.0-5.5); LYMPHOCYTES % (AUTO) 36.6 % (20.5-51.5); MEAN CORPUSCULAR HEMOGLOBIN 28 pg (27-31); MEAN CORPUSCULAR HGB CONC 33 % (32-36); MEAN CORPUSCULAR VOLUME 85 fL (79.0-98.0); MONOCYTES # (AUTO) 0.3 K/uL (0.0-1.0); PLATELET COUNT (AUTO) 123 K/uL (130-430); RED BLOOD CELL COUNT(AUTO) 2.28 MIL/uL (4.2-6.2); RED CELL DISTRIBUTION WIDTH 17.5 % (9.0-15.0); WHITE BLOOD COUNT (AUTO) 3.4 K/uL (4.8-10.8)
[2020-07-30] MEDS: CARVEDILOL 12.5 MG TABLET (COREG) PO SCH ×2 (08:12→21:12)
[2020-07-30] MEDS: LORazepam 2 MG/ML VIAL IVP PRN ×3 (08:20→23:50)
[2020-07-30 09:15] LABS: HEMATOCRIT 19.4 % (36-54); HEMOGLOBIN 6.5 g/dL (14.0-18.0); NEUTROPHILS # (AUTO) 1.7 K/uL (1.8-7.7)
--- NOTE | 2020-07-30 10:30 | NUR ---
HD RN HERE STARTING HD.
[2020-07-30 13:30] VITALS: BP_SYST 115
--- NOTE | 2020-07-30 13:45 | NUR ---
HD RN REPORTED THAT HD IS COMPLETED, 1.5 LI OUTPUT.
[2020-07-30 15:32] LABS: HEMOGLOBIN 8.7 g/dL (14.0-18.0)
[2020-07-30 16:24] VITALS: BP_SYST 113
--- NOTE | 2020-07-30 18:34 | NUR ---
CLOSING NOTES, PT HAS BEEN STABLE, NO C/O PAIN, PT GIVEN 2X ATIVAN TODAY, PT HAD HD WITH 1500 OUTPUT, PT GIVEN 2 UNITS OF PRBC WITH HD. PT TOLERATED WELL. WILL ENDORSE TO NIGHT NURSE.
[2020-07-30 19:00] VITALS: BP_SYST 120; BP_SYST 125
--- NOTE | 2020-07-30 19:15 | NUR ---
change of shift.pt.presents quiescent affect;calm,resting.pt.presents lethargic affect.pt.presents s/p hemo-diaiysis:07/30/20. h/d access:lt.arm;av-shunt.no c/o pain,nausea.pt.presents iv access:location rt.hand.pt.capable to reposition self/ambulate. call light/telephone w/in access of the pt.
[2020-07-30 20:00] VITALS: BP_SYST 120; BP_SYST 125
--- NOTE | 2020-07-30 20:00 | NUR ---
pt.assessed.v/s assessed values w/in normal limits.no c/o pain,nausea.i have apprised the pt. that snacks/beverages are available w/in the shift.pt.had requested sandwich/juices.shinping;rn provided the snacks/juices.pt.had ambulated to the restroom gait assessed;unsteady.pt.refused assist device;walker.general status stable.respiratory status stable;unlabored@room air.02-sat%= 98%.call light/telephone w/in access of the pt.
--- NOTE | 2020-07-30 21:00 | NUR ---
2100pmedications administered.pt.capable to ingest the po medications slowly w a degree of difficulty.to monitor swallow capacity;function.
[2020-07-30] MEDS: GABAPENTIN 100 MG CAPSULE PO SCH (21:12)
--- NOTE | 2020-07-30 22:00 | NUR ---
pt.assessed.pt.presents quiescent affect;calm,resting.pt.had requested chocolate drink.i have provided the chocolate drink. pt.had requested ativan;i re-iterated to the pt.the ativan is schduled q-8hrs i will page re;ativan frequency.pt.requested blaket/socks.i have provided the blanket;warmed,socks.general status stable.respiratory status stable;unlabored.call light/telephone w/in access of the pt.
[2020-07-31] VITALS: BP_SYST 113
--- NOTE | 2020-07-31 | NUR ---
pt.assessed.v/s assessed values w/in normal limits.no c/o pain,nausea. was paged/returned the page.i apprised of the pt's requests ativan. ordered ativan:0.5mg ivp q-4hrs;prn.i have administered the ativan:0.5mg ivp.to assess the efficacy of the medication per protocol.no additional requests@this hour.general status stable.respiratory status stable;unlabored.pt.capable to reposition self.call light/telephone w/in access of the pt.
--- NOTE | 2020-07-31 01:00 | NUR ---
i have weighed the pt. 2/t hemo-dialysis pt.protocol.
--- NOTE | 2020-07-31 02:00 | NUR ---
pt.assessed.pt.presents quiescent affect;calm,somnolent.per flacc pain mgx pt.absent facial grimaces/body posturing. general status stable.respiratory status stable;unlabored.pt.capable to reposition self.call light/telephone w/in access of the pt.
[2020-07-31 04:00] VITALS: BP_SYST 115
--- NOTE | 2020-07-31 04:00 | NUR ---
pt.assessed.v/s assessed values w/in normal limits.no c/o pain,nausea.pt.requested medication:anxiety.i have administered ativan;0.5mg ivp. no addtional requests posited@this hour.pt.capable to reposition self.general status stable.respiratory status stable;unlabored. call light/telephone placed w/in access of the pt.
[2020-07-31] MEDS: LORazepam 2 MG/ML VIAL IVP PRN (04:05)
--- NOTE | 2020-07-31 06:30 | NUR ---
pt.assessed.pt.presents quiescent affect;calm,somnolent.per flacc pain mgx pt.absent facial grimaces/body posturing.iv access intact;patent iv lock.no c/o pain,nausea.general status stable.respiratory status stable;unlabored shallow depth.o2-sat%=98%. call light/telephone placed w/in access of the pt.i have provided the pt w bsc.pt.attempted to ambulate to the restroom.pt.presented general weakness.
[2020-07-31] MEDS: CARVEDILOL 12.5 MG TABLET (COREG) PO SCH (08:23)
[2020-07-31 08:24] VITALS: BP_SYST 114
--- NOTE | 2020-07-31 10:56 | NUR ---
patient A&Ox2 very lethargic vitals stable, BP medication were held patients bp was normal 114/70. patient was hard to wake responds to verbal commands just really slow to move or respond. He ate less than 25% offered fluids he refused. Currently denies pain or anxiety at the moment. Will continue to monitor patient
[2020-07-31 12:14] VITALS: BP_SYST 110
[2020-07-31 16:40] VITALS: BP_SYST 108
[2020-07-31 17:19] VITALS: BP_SYST 108
--- NOTE | 2020-07-31 18:36 | NUR ---
received DC orders from . Visited patient he was A&Ox4 ambulating with out difficulty. This comic writer went over dc paper work with patient he understood and was able to repeat care instructions and to follow up with dialysis tomorrow. At 1800 CONE TREATER escorted patient out of hospital to his mother he took all belongings with him.
--- NOTE | 2020-08-08 09:59 | NUR ---
Discharge Follow Up Call: SS attempted to phone pt on 08/01, 08/03 and 08/08. SS stated reason for call and asked for a call back. No further follow-up calls needed.
== END 2020-07-31 18:00 | disposition home or self-care (01) | DRG 811 ==
LOC: SED 20:34 → SMU 23:12
PROVIDERS: ADMIT Internal Medicine; ATTEND Internal Medicine
PROC: 30233N1 Transfusion of Nonautologous Red Blood Cells into Peripheral Vein, Percutaneous Approach (ICD-10-PCS; principal; 2020-07-30)
DX: D64.9 Anemia, unspecified (principal); N18.6 End stage renal disease; E43 Unspecified severe protein-calorie malnutrition; I13.2 Hypertensive heart and chronic kidney disease with heart failure and with stage 5 chronic kidney disease, or end stage renal disease; I50.42 Chronic combined systolic (congestive) and diastolic (congestive) heart failure; D47.Z2 Castleman disease; Z68.1 Body mass index [BMI] 19.9 or less, adult; F32.9 Major depressive disorder, single episode, unspecified; F41.9 Anxiety disorder, unspecified; Z20.828 Contact with and (suspected) exposure to other viral communicable diseases; E80.6 Other disorders of bilirubin metabolism; Z99.2 Dependence on renal dialysis; Z88.1 Allergy status to other antibiotic agents; Z88.8 Allergy status to other drugs, medicaments and biological substances; Z90.49 Acquired absence of other specified parts of digestive tract; Z91.19 Patient's noncompliance with other medical treatment and regimen
CPT/HCPCS: 36415; 36430; 71045; 80048; 80053; 81003; 82550-TC; 84100-TC; 84484; 85007; 85018-TC; 85025; 85027; 86870; 86886; 86900; 86901; 86920; 87081; 90935; 93005; 99285; J2060; J7030; J7050; P9021

== ENCOUNTER 2020-08-09 01:16 | Emergency (ER) | payer OTHER, MEDICAID ==
[~2020-08-09] VITALS: Ht 165.1 cm; Wt 41.3 kg
[2020-08-09 01:20] VITALS: BP_SYST 136
[2020-08-09 02:18] VITALS: BP_SYST 127
== END 2020-08-09 02:18 | disposition home or self-care (01) ==
LOC: SED 01:16
DX: T82.838A Hemorrhage due to vascular prosthetic devices, implants and grafts, initial encounter (principal); N18.6 End stage renal disease; I10 Essential (primary) hypertension; Z88.1 Allergy status to other antibiotic agents; Z79.899 Other long term (current) drug therapy; Z79.4 Long term (current) use of insulin; Z86.2 Personal history of diseases of the blood and blood-forming organs and certain disorders involving the immune mechanism; X58.XXXA Exposure to other specified factors, initial encounter
CPT/HCPCS: 99281; 99282

== ENCOUNTER 2020-08-15 00:33 | Inpatient (IN) | payer OTHER, MEDICAID, SELFPAY ==
[2020-08-15] VITALS (8 sets, daily range): BP systolic 119–141
[~2020-08-15] VITALS: Ht 165.1 cm; Wt 44.5 kg
--- NOTE | 2020-08-15 00:40 | NUR ---
Placed in room 7 . Placed on bus driver/monitor, blood pressure machine and pulse oximeter. To gown for exam. Side rails up. Report given to SHAHZAD BANDA.
--- NOTE | 2020-08-15 00:46 | NUR ---
ER at bedside examining patient.
--- NOTE | 2020-08-15 00:48 | NUR ---
Sadie calderón in [facility] - 08/15/20 at 0049 by [email or web address] JENNIFER Blanchard at bedside examining patient.
--- NOTE | 2020-08-15 00:49 | NUR ---
Received patient to ER w/ c/o generalized weakness and dizziness ongoing since Friday. Patient h/o of Renal Failure (RF) for which patient has dialysis on Friday, Friday, and (last dialysis was Friday). AV Fistula to Left arm w/ (+) bruits and thrills. Introduced self to patient, positoned for comfort, bed to low position, sr up, continue to monitor.
--- NOTE | 2020-08-15 01:08 | NUR ---
pcxr done at bedside
[2020-08-15 01:32] LABS: CREATININE 6.92 mg/dL (0.55-1.30)
[2020-08-15 01:33] LABS: BASOPHILS # (AUTO) 0.1 K/uL (0.0-0.2); EOSINOPHILS # (AUTO) 0.1 K/uL (0.0-0.4); EOSINOPHILS % (AUTO) 1.4 % (0.0-4.0); LYMPHOCYTES # (AUTO) 1.5 K/uL (1.0-5.5); LYMPHOCYTES % (AUTO) 34.3 % (20.5-51.5); MEAN CORPUSCULAR HEMOGLOBIN 27 pg (27-31); MEAN CORPUSCULAR HGB CONC 32 % (32-36); MEAN CORPUSCULAR VOLUME 83 fL (79.0-98.0); MONOCYTES # (AUTO) 0.3 K/uL (0.0-1.0); MONOCYTES % (AUTO) 5.9 % (1.7-9.3); NEUTROPHILS # (AUTO) 2.5 K/uL (1.8-7.7); NEUTROPHILS % (AUTO) 56.4 % (40.0-70.0); PLATELET COUNT (AUTO) 146 K/uL (130-430); RED BLOOD CELL COUNT(AUTO) 2.35 MIL/uL (4.2-6.2); RED CELL DISTRIBUTION WIDTH 20.8 % (9.0-15.0); WHITE BLOOD COUNT (AUTO) 4.4 K/uL (4.8-10.8)
[2020-08-15 01:37] LABS: ALBUMIN 1.7 g/dL (3.4-4.8); TOTAL BILIRUBIN 2.1 mg/dL (0.0-1.0)
[2020-08-15 01:38] LABS: INR 1.3 (0.80-1.20); PROTHROMBIN TIME 12.9 SECS (9.5-12.5)
[2020-08-15 01:44] LABS: POTASSIUM 7.8 mmol/L (3.5-5.1)
[2020-08-15 01:45] LABS: HEMATOCRIT 19.5 % (36-54); HEMOGLOBIN 6.3 g/dL (14.0-18.0)
[2020-08-15] MEDS ORDERED: CALCIUM CHLORIDE 1 GM in NS 100 ML IV ONE (02:00)
[2020-08-15] MEDS ORDERED: INSULIN REGULAR, HUMAN 10 UNITS/0.1 ML INJ IVP ONE (02:00)
[2020-08-15] MEDS ORDERED: DEXTROSE 50% JECT 50 ML DISP.SYRIN IVP ONE (02:00)
[2020-08-15] MEDS ORDERED: CALCIUM CHLORIDE 1 GM/10 ML DISP.SYRIN (14 mEq Ca++/SYR) ONE (02:03)
--- NOTE | 2020-08-15 02:20 | NUR ---
Patient signed consent for blood transfusion.
[2020-08-15] MEDS ORDERED: LORazepam 2 MG/ML VIAL ONE ×2 (02:29→14:09)
[2020-08-15] MEDS ORDERED: LORazepam 2 MG/ML VIAL IVP ONE (02:30)
--- NOTE | 2020-08-15 02:36 | NUR ---
patient medicated as ordered. Will observe for any adverse reaction. Bed to low position, sr up, continue to monitor.
--- NOTE | 2020-08-15 03:20 | NUR ---
patient resting comfortably at this time in no acute distress, bed to low position, sr up, continue to monitor level of comfort.
--- NOTE | 2020-08-15 03:41 | NUR ---
Patient will be admitted to care of . Admitted to Tele unit. Will go to room 130A. Belongings list completed. Complete and up to date summary report printed. SBAR report to be given at bedside with opportunity for questions.
--- NOTE | 2020-08-15 03:59 | NUR ---
ADMIT NOTE Received pt from ER to the floor with a diagnosis of ESRD,anemia. Admission process initiated. patient oriented to pain management, safety and call light-teach back done.
--- NOTE | 2020-08-15 04:15 | NUR ---
ADMISSION PHYSICAL ASSESSMENT NOTES; took over care from pato Mars, pt. admitted from ER with DX Anemia/ESRD, awake, alert and oriented. placed on monitor worker and shows sinus rhythm. no complain of pain nor discomfort at this time. IV lock on rt. upper arm. AV shunt on left arm for hemodialysis. MD order HD and blood transfusion. blood bank called and pt. has antibodies, will call when blood is available. on room air, no shortness of breath. skin intact. urinal at bedside. call light within reach. room door closed since its noisy outside.
--- NOTE | 2020-08-15 05:45 | NUR ---
NOTES: pt. still sleeping. nurse Jerad do the swab for MRSA.
--- NOTE | 2020-08-15 06:45 | NUR ---
CLOSING NOTES; PT. CONDITION OBSERVED. STILL WAITING FOR BLOOD AVAILABILITY AND HEMODIALYSIS TODAY. AV SHUNT ON LEFT ARM. CALL LIGTH WITHIN REACH. ENDORSED TO DAY SHIFT.
--- NOTE | 2020-08-15 08:06 | NUR ---
Nutrition Update Nigel scale 16 noted. Pt admitted for End Stage Renal Disease, Anemia Diet: 2g Na Diet BMI: 14.8 kg/m2 RD to follow per nutrition care standards.
[2020-08-15 08:18] LABS: MEAN CORPUSCULAR HEMOGLOBIN 27 pg (27-31); MEAN CORPUSCULAR HGB CONC 33 % (32-36); MEAN CORPUSCULAR VOLUME 82 fL (79.0-98.0); PLATELET COUNT (AUTO) 131 K/uL (130-430); RED CELL DISTRIBUTION WIDTH 21.3 % (9.0-15.0); WHITE BLOOD COUNT (AUTO) 4.2 K/uL (4.8-10.8)
[2020-08-15 08:37] LABS: CALCIUM 10.1 mg/dL (8.4-11.0); CREATININE 7.05 mg/dL (0.55-1.30)
[2020-08-15 08:43] LABS: ALBUMIN 1.6 g/dL (3.4-4.8)
--- NOTE | 2020-08-15 08:50 | NUR ---
Nephro Dr. Lozano seen and examined the patient ,informed regarding critical lab result, blood still [facility] , per MD to start HD if blood is not yet available and give later .
[2020-08-15 09:04] LABS: POTASSIUM 7.9 mmol/L (3.5-5.1)
--- NOTE | 2020-08-15 09:20 | NUR ---
HD started by hemodialysis nurse, vitals sign monitored.
[2020-08-15 11:58] LABS: BASOPHILS % (MANUAL) 0 % (0-2); EOSINOPHILS % (MANUAL) 0 % (0-7); LYMPHOCYTES % (MANUAL) 33 % (20-46); MONOCYTES % (MANUAL) 8 % (0-11)
--- NOTE | 2020-08-15 12:15 | NUR ---
Hemodialysis completed vitals sign stable lefr upper arm AV shunt with pressure dressing no active bleeding
--- NOTE | 2020-08-15 13:25 | NUR ---
PAGED DR JERAD GOTTI FOR ORDERS SPOKE TO [facility]
[2020-08-15] MEDS ORDERED: LORazepam 2 MG/ML VIAL IVP PRN (13:45)
--- NOTE | 2020-08-15 15:40 | NUR ---
BT INITIATION:H/H 03/09 Consent signed per patient agreeing to administration of blood. Blood has been type and crossmatched. Blood sent from blood bank. Information on unit of blood checked against patient wristband at bedside by two nurses. All information matches. Patient or responsible constitution party informed of potential complications associated with blood transfusion. Informed of possible transfusion reaction symptoms. Aware of need to notify nurse at once of itching, shortness of breath, flushing, feeling of impending doom, or other symptoms not previously present. Vital signs taken within 5 minutes prior to initiation of transfusion. RN will remain with patient for first 15 minutes of transfusion at which time vital signs will be re-assessed.
--- NOTE | 2020-08-15 18:05 | NUR ---
Blood transfusion 1st PRBC completed with transfusion reaction, vitals sign stable.
--- NOTE | 2020-08-15 18:15 | NUR ---
2nd unit of PRBC started blood has been cross match by 2 RN , will monitor for possible transfusion reaction patient is aware.
--- NOTE | 2020-08-15 19:30 | NUR ---
ROUNDS PATIENT RESTING COMFORTABLY IN BED, VITALS STABLE, BLOOD TRANSFUSION ON GOING. ASSESSMENT DONE AND DOCUEMNTED. SEE FLOWSHEET. NEEDS ATTENDED TO. SAFETY MEASURES N PLACED. CALL LIGHT PLACED WITHIN REACH.
--- NOTE | 2020-08-15 21:10 | NUR ---
NOTES BLOOD TRANSFUSION DONE, VITALS STABLE, NO S/S OF TRANSFUSION REACTION NOTED. WILL CONTINUE TO MONITOR.
[2020-08-16] VITALS: BP_SYST 129
--- NOTE | 2020-08-16 00:16 | NUR ---
PATIENT RESTING: Patient resting quietly. No acute distress noted. Vital signs within normal range.
[2020-08-16] MEDS ORDERED: LORazepam 2 MG/ML VIAL IVP PRN ×2 (01:15→02:30)
--- NOTE | 2020-08-16 02:16 | NUR ---
ROUNDS PATIENT ASLEEP, RESPIRATIONS EVEN AND UNLABORED, WILL CONTINUE TO MONITOR.
--- NOTE | 2020-08-16 04:13 | NUR ---
ROUNDS PATIENT SLEEPING, NO SOB NOR PAIN AND DISCOMFORT NOTED. WILL CONTINUE TO MONITOR.
[2020-08-16 06:18] LABS: BASOPHILS # (AUTO) 0.1 K/uL (0.0-0.2); BASOPHILS % (AUTO) 2.5 % (0.0-2.0); EOSINOPHILS # (AUTO) 0.1 K/uL (0.0-0.4); EOSINOPHILS % (AUTO) 2.9 % (0.0-4.0); HEMATOCRIT 23.3 % (36-54); HEMOGLOBIN 7.9 g/dL (14.0-18.0); LYMPHOCYTES # (AUTO) 1.1 K/uL (1.0-5.5); LYMPHOCYTES % (AUTO) 33.7 % (20.5-51.5); MEAN CORPUSCULAR HEMOGLOBIN 29 pg (27-31); MEAN CORPUSCULAR HGB CONC 34 % (32-36); MEAN CORPUSCULAR VOLUME 84 fL (79.0-98.0); MONOCYTES # (AUTO) 0.3 K/uL (0.0-1.0); MONOCYTES % (AUTO) 7.9 % (1.7-9.3); NEUTROPHILS # (AUTO) 1.7 K/uL (1.8-7.7); PLATELET COUNT (AUTO) 125 K/uL (130-430); RED BLOOD CELL COUNT(AUTO) 2.76 MIL/uL (4.2-6.2); RED CELL DISTRIBUTION WIDTH 19.3 % (9.0-15.0); WHITE BLOOD COUNT (AUTO) 3.3 K/uL (4.8-10.8)
[2020-08-16 07:00] LABS: CALCIUM 8.5 mg/dL (8.4-11.0); CREATININE 3.85 mg/dL (0.55-1.30); POTASSIUM 4.5 mmol/L (3.5-5.1)
--- NOTE | 2020-08-16 07:30 | NUR ---
Spoke to seen and examined the patient Ok to discharge if labs is OK
[2020-08-16 09:11] VITALS: BP_SYST 130
[2020-08-16 09:22] VITALS: BP_SYST 130
--- NOTE | 2020-08-16 09:50 | NUR ---
D/C Patient Patient given medication reconciliation form and D/C instructions. Exit Care provided. Patient verbalized understanding. MD discussed with patient the results and treatment provided. Ambulatory with unsteady gait due to weakness for discharge to home. Patient in stable condition, ID band removed. IV catheter removed, intact and , pressure dressing applied no active bleeding . Patient educated safety/fall,compliant hemodialysis and diet management. All belongings sent with patient.
--- NOTE | 2020-08-16 10:00 | NUR ---
Discharge home accompanied by the mother and father, instruction given verbalized understanding.
== END 2020-08-16 10:00 | disposition home or self-care (01) | DRG 811 ==
LOC: SED 00:33 → STU 03:39
PROVIDERS: ADMIT Internal Medicine Hospice and Palliative Medicine; ATTEND Internal Medicine Hospice and Palliative Medicine
PROC: 30233N1 Transfusion of Nonautologous Red Blood Cells into Peripheral Vein, Percutaneous Approach (ICD-10-PCS; principal; 2020-08-15)
PROC: 5A1D70Z Performance of Urinary Filtration, Intermittent, Less than 6 Hours Per Day (ICD-10-PCS; 2020-08-15)
DX: D64.9 Anemia, unspecified (principal); N18.6 End stage renal disease; E43 Unspecified severe protein-calorie malnutrition; D47.Z2 Castleman disease; I12.0 Hypertensive chronic kidney disease with stage 5 chronic kidney disease or end stage renal disease; D47.9 Neoplasm of uncertain behavior of lymphoid, hematopoietic and related tissue, unspecified; Z68.1 Body mass index [BMI] 19.9 or less, adult; D63.1 Anemia in chronic kidney disease; E87.5 Hyperkalemia; Z99.2 Dependence on renal dialysis; B10.89 Other human herpesvirus infection
CPT/HCPCS: 36415; 36430; 71045; 80048; 80053; 83880; 84484; 85007; 85025; 85027; 85610-TC; 85730-TC; 86870; 86886; 86900; 86901; 86920; 87081; 90935; 93005; 96365; 96375; 99285; G0378; J1815; J2060; P9021

== ENCOUNTER 2020-08-17 18:43 | Inpatient (IN) | payer OTHER, MEDICAID, SELFPAY ==
[~2020-08-17] VITALS: Ht 165.1 cm; Wt 42.2 kg
[~2020-08-17 18:43] MED LIST changes: -DOXY100C2 PO
--- NOTE | 2020-08-17 19:35 | NUR ---
Patient to ER bed 3 to gown for evaluation. Side rails up. Report received from SHAHZAD Luna.
--- NOTE | 2020-08-17 19:38 | NUR ---
pt a&o x4 from home c/o of lower back pain starting this morning gradually getting worse. patient reports pain 10/10 and nausea. pt denies vomiting, diarrhea, constipation, changes in bowel habit, difficulty urinating, trauma. pt normally receives dialysis every friday, , friday. pt last received dialysis friday, did not go today.
[2020-08-17 19:41] VITALS: BP_SYST 117
--- NOTE | 2020-08-17 19:45 | NUR ---
# 20 gauge angiocath placed to RAC. Use of asceptic technique. Opsite placed over site. Blood return noted. Blood, BLOOD CULTURES, LACTIC for lab drawn from site. Flushed with 10 cc of normal saline. No evidence of infiltration noted. Patient tolerated well.
--- NOTE | 2020-08-17 20:12 | NUR ---
ER Dr. patiño at bedside examining patient.
[2020-08-17] MEDS ORDERED: MORPHINE 2 MG/ML INJ. SYRINGE IM ONE (20:30)
[2020-08-17] MEDS ORDERED: KETOROLAC TROMETHAMINE 30 MG VIAL IM ONE (20:30)
[2020-08-17] MEDS ORDERED: MORPHINE 2 MG/ML INJ. SYRINGE ONE (20:40)
[2020-08-17 20:54] LABS: BASOPHILS # (AUTO) 0.1 K/uL (0.0-0.2); BASOPHILS % (AUTO) 1.5 % (0.0-2.0); EOSINOPHILS # (AUTO) 0.1 K/uL (0.0-0.4); EOSINOPHILS % (AUTO) 1.4 % (0.0-4.0); HEMATOCRIT 26.7 % (36-54); LYMPHOCYTES # (AUTO) 1.4 K/uL (1.0-5.5); LYMPHOCYTES % (AUTO) 36.1 % (20.5-51.5); MEAN CORPUSCULAR HEMOGLOBIN 29 pg (27-31); MEAN CORPUSCULAR HGB CONC 34 % (32-36); MEAN CORPUSCULAR VOLUME 85 fL (79.0-98.0); MONOCYTES # (AUTO) 0.2 K/uL (0.0-1.0); NEUTROPHILS # (AUTO) 2.1 K/uL (1.8-7.7); PLATELET COUNT (AUTO) 110 K/uL (130-430); RED BLOOD CELL COUNT(AUTO) 3.15 MIL/uL (4.2-6.2); WHITE BLOOD COUNT (AUTO) 3.8 K/uL (4.8-10.8)
--- NOTE | 2020-08-17 21:07 | NUR ---
Patient transported to radiology via wheelchair, accompanied by Yanick.
--- NOTE | 2020-08-17 21:22 | NUR ---
PATIENT RETURNED FROM RADIOLOGY IN STABLE CONDITION.
[2020-08-17 21:26] LABS: CALCIUM 8.7 mg/dL (8.4-11.0); CREATININE 5.54 mg/dL (0.55-1.30)
[2020-08-17 21:32] LABS: ALBUMIN 1.7 g/dL (3.4-4.8); TOTAL BILIRUBIN 3.3 mg/dL (0.0-1.0)
[2020-08-17 21:51] LABS: POTASSIUM 6.9 mmol/L (3.5-5.1)
--- NOTE | 2020-08-17 21:52 | NUR ---
CRITICAL LAB REPORTING - POTASSIUM 6.9. AWARE.
[2020-08-17] MEDS ORDERED: ALBUTEROL SULFATE 0.083% 2.5 MG/3 ML VIAL.NEB INH ONE (22:00)
--- NOTE | 2020-08-17 22:05 | NUR ---
COVID AND MRSA COLLECTED AND SENT TO LAB.
--- NOTE | 2020-08-17 22:33 | NUR ---
Patient's code status is FULL CODE paperwork completed and placed in chart.
--- NOTE | 2020-08-17 22:40 | NUR ---
Medication reconciliation completed with information provided by PATIENT. Any prior medication reconciliation on file was reviewed and corrected.
[2020-08-17] MEDS ORDERED: SODIUM POLYSTYRENE SULFONATE 15 GM/60 ML UDBTL PO ONE (22:45)
--- NOTE | 2020-08-17 22:49 | NUR ---
RECEIVED ADMIT ORDERS FROM DR. FARAH.
[2020-08-17] MEDS ORDERED: SODIUM BICARBONATE 8.4% JECT 50 MEQ/50 ML SYRINGE IVP ONE (23:00)
[2020-08-17] MEDS ORDERED: CALCIUM GLUCONATE 1 GM/10 ML VIAL IVP ONE (23:00)
[2020-08-17] MEDS ORDERED: SODIUM POLYSTYRENE SULFONATE 15 GM/60 ML UDBTL ONE (23:09)
--- NOTE | 2020-08-17 23:42 | NUR ---
PATIENT MEDICATED PER MD ORDERS. PT TOLERATED WELL. NO SIGNS OF ACUTE DISTRESS. VITAL SIGNS STABLE.
--- NOTE | 2020-08-18 00:05 | NUR ---
Transfer to TELE via ACLS protocol. Licensed nurse present. IV present no signs or symptoms of infiltration.
--- NOTE | 2020-08-18 00:05 | NUR ---
Patient will be admitted to care of [facility]. Admitted to TELE unit. Will go to room 117B. Belongings list completed. Complete and up to date summary report printed. SBAR report to be given at bedside with opportunity for questions.
[2020-08-18 00:21] VITALS: BP_SYST 141
--- NOTE | 2020-08-18 00:21 | NUR ---
ADMISSION NOTE Received patient from ER via adriel, received report from SHAHZAD TAVARES. Patient admitted with diagnosis of HYPERKALEMIA. Patient oriented to hospital routine, call light, toileting and safety-patient verbalized understanding.
--- NOTE | 2020-08-18 01:13 | NUR ---
CONSULTATION PAGED/CALLED Reason for Consultation: HYPERKALEMIA Person Who was Notified:PATRICIA Consulting Physician: VALERIE Refund Clerk Specialty: NEPHRO Ordering Physician: SOFI
[2020-08-18] MEDS ORDERED: ALPRAZolam 0.25 MG TABLET PO PRN (01:15)
[2020-08-18] MEDS ORDERED: ALPRAZolam 0.25 MG TABLET ONE (01:21)
--- NOTE | 2020-08-18 01:25 | NUR ---
Anxiety: Patient complaining of feeling anxious. Paged and spoke with Dr. Schmitz over phone to update regarding patient complaint. Order received for Xanax 0.25 MG PO Q6H PRN for agitation/anxiety. Order verified by read-back and input by this RN. Medication administered to patient per MD order. Call light with patient. Safety, fall precautions in place. Will continue monitoring.
--- NOTE | 2020-08-18 03:46 | NUR ---
Rounds: Patient is resting comfortably in bed. No acute distress. Tolerating room air. RAC IV site saline locked. Call light with patient. Will continue monitoring
[2020-08-18 06:38] LABS: BASOPHILS # (AUTO) 0.1 K/uL (0.0-0.2); BASOPHILS % (AUTO) 2.5 % (0.0-2.0); EOSINOPHILS % (AUTO) 1.3 % (0.0-4.0); HEMATOCRIT 22.3 % (36-54); HEMOGLOBIN 7.5 g/dL (14.0-18.0); LYMPHOCYTES # (AUTO) 0.7 K/uL (1.0-5.5); LYMPHOCYTES % (AUTO) 28.8 % (20.5-51.5); MEAN CORPUSCULAR HEMOGLOBIN 28 pg (27-31); MEAN CORPUSCULAR HGB CONC 34 % (32-36); MEAN CORPUSCULAR VOLUME 84 fL (79.0-98.0); MONOCYTES # (AUTO) 0.2 K/uL (0.0-1.0); MONOCYTES % (AUTO) 6.6 % (1.7-9.3); NEUTROPHILS # (AUTO) 1.5 K/uL (1.8-7.7); NEUTROPHILS % (AUTO) 60.8 % (40.0-70.0); PLATELET COUNT (AUTO) 89 K/uL (130-430); RED BLOOD CELL COUNT(AUTO) 2.66 MIL/uL (4.2-6.2); RED CELL DISTRIBUTION WIDTH 20.4 % (9.0-15.0); WHITE BLOOD COUNT (AUTO) 2.5 K/uL (4.8-10.8)
--- NOTE | 2020-08-18 06:46 | NUR ---
Closing note: Patient is awake in bed, no acute distress. Even, unlabored breathing on room air. IV site to RAC benign and intact, saline locked. EUGENE AV shunt present. All needs met. Call light with patient. Safety, fall precautions observed. Will endorse care to dayshift RN.
[2020-08-18 07:03] LABS: ALBUMIN 1.6 g/dL (3.4-4.8); CALCIUM 8.8 mg/dL (8.4-11.0); CREATININE 6.05 mg/dL (0.55-1.30); TOTAL BILIRUBIN 2.7 mg/dL (0.0-1.0)
--- NOTE | 2020-08-18 07:55 | NUR ---
INITIAL NOTE RECEIVED PT IN BED, NO S/S OF DISTRESS OR SOB NOTED, PT HAS NO C/O PAIN AT THIS TIME, PT IN STABLE CONDITION. PT AAOX4, VERBAL. IV CATHETER PATENT, NO SIGNS OF INFECTION OR INFILTRATION NOTED, SALINE LOCK. BED AT LOWEST POSITION, CALL LIGHT WITHIN REACH, WILL CONTINUE TO MONITOR PT FOR ANY CHANGES. FALL AND SAFETY PRECAUTIONS IN PLACE.
[2020-08-18 08:02] LABS: POTASSIUM 6.2 mmol/L (3.5-5.1)
[2020-08-18 08:30] VITALS: BP_SYST 129
--- NOTE | 2020-08-18 09:24 | NUR ---
CUSTOMER RESPONSE REPRESENTATIVE, DR PADILLA DIRECTLY WAS CALLED FOR CRITICAL K LEVEL AND ORDER FOR HD.
--- NOTE | 2020-08-18 10:05 | NUR ---
ROUNDS PT IN BED, NO S/S OF DISTRESS OR SOB NOTED, PT HAS NO C/O PAIN AT THIS TIME, PT IN STABLE CONDITION. PT RESTING COMFORTABLY, WILL CONTINUE TO MONITOR PT FOR ANY CHANGES.
--- NOTE | 2020-08-18 10:32 | NUR ---
ROUNDS DR PADILLA ROUNDING, AWARE OF PATIENT'S CONDITION, NEW ORDERS GIVEN.
[2020-08-18 12:00] VITALS: BP_SYST 126
[2020-08-18] MEDS ORDERED: ACETAMINOPHEN 325 MG TABLET PO PRN (14:15)
[2020-08-18] MEDS ORDERED: traMADol HCL HCL 50 MG TABLET (ULTRAM) PO PRN (14:15)
[2020-08-18 16:00] VITALS: BP_SYST 135
--- NOTE | 2020-08-18 18:14 | NUR ---
CLOSING NOTE PT IN BED, NO S/S OF DISTRESS OR SOB NOTED, PT HAS NO C/O PAIN AT THIS TIME, PT IN STABLE CONDITION. PT AAOX4, VERBAL. IV CATHETER PATENT, NO SIGNS OF INFECTION OR INFILTRATION NOTED, SALINE LOCK. BED AT LOWEST POSITION, CALL LIGHT WITHIN REACH, WILL ENDORSE CARE OF PT TO INCOMING NURSE. FALL AND SAFETY PRECAUTIONS IN PLACE.
--- NOTE | 2020-08-18 19:54 | NUR ---
Initial note: Received report from dayshift RN. Patient is awake in bed watching TV. No acute distress. Tolerating room air, even and unlabored respirations. IV site saline locked. EUGENE AV shunt noted. Call light is with patient. Safety, fall precautions in place. Will continue to monitor.
[2020-08-18] MEDS ORDERED: CARVEDILOL 12.5 MG TABLET (COREG) ONE (20:28)
[2020-08-18] MEDS: TEMAZEPAM 15 MG CAPSULE PO SCH (20:39)
[2020-08-18 20:46] VITALS: BP_SYST 133
[2020-08-18] MEDS: CARVEDILOL 12.5 MG TABLET (COREG) PO SCH (21:00)
[2020-08-18] MEDS: GABAPENTIN 100 MG CAPSULE PO SCH (21:00)
--- NOTE | 2020-08-18 21:57 | NUR ---
Scheduled medications: Patient refused Neurontin and Coreg scheduled for 21:00 despite education. Patient stated that he hasn't slept in over 24 hours and just wants to sleep. Patient agreed to take scheduled Restoril and Vistaril. Safety and fall precautions in place. Will continue to monitor.
[2020-08-19 00:53] VITALS: BP_SYST 11
--- NOTE | 2020-08-19 01:03 | NUR ---
Rounds: Patient is resting comfortably in bed. No acute distress. Tolerating room air. RAC IV site saline locked. Call light with patient. Will continue monitoring
--- NOTE | 2020-08-19 04:07 | NUR ---
Rounds: Patient is sleeping comfortably in bed. No acute distress. Even and unlabored breathing on room air. RAC IV site saline locked. Call light with patient. Will continue monitoring
--- NOTE | 2020-08-19 06:40 | NUR ---
Closing note: Patient is asleep in bed, no acute distress. Even, unlabored breathing on room air. IV site to RAC benign and intact, saline locked. EUGENE AV shunt present. All needs met. Call light with patient. Safety, fall precautions observed. Will endorse care to dayshift RN.
[2020-08-19 06:45] LABS: BASOPHILS # (AUTO) 0.1 K/uL (0.0-0.2); BASOPHILS % (AUTO) 2.3 % (0.0-2.0); EOSINOPHILS # (AUTO) 0.1 K/uL (0.0-0.4); EOSINOPHILS % (AUTO) 4.2 % (0.0-4.0); HEMATOCRIT 23.1 % (36-54); HEMOGLOBIN 7.7 g/dL (14.0-18.0); LYMPHOCYTES # (AUTO) 0.9 K/uL (1.0-5.5); LYMPHOCYTES % (AUTO) 26.4 % (20.5-51.5); MEAN CORPUSCULAR HEMOGLOBIN 28 pg (27-31); MEAN CORPUSCULAR HGB CONC 34 % (32-36); MEAN CORPUSCULAR VOLUME 82 fL (79.0-98.0); MONOCYTES # (AUTO) 0.1 K/uL (0.0-1.0); MONOCYTES % (AUTO) 4.3 % (1.7-9.3); NEUTROPHILS # (AUTO) 2.1 K/uL (1.8-7.7); NEUTROPHILS % (AUTO) 62.8 % (40.0-70.0); PLATELET COUNT (AUTO) 110 K/uL (130-430); RED CELL DISTRIBUTION WIDTH 20.4 % (9.0-15.0); WHITE BLOOD COUNT (AUTO) 3.4 K/uL (4.8-10.8)
[2020-08-19 07:13] LABS: CALCIUM 8.4 mg/dL (8.4-11.0); CREATININE 3.44 mg/dL (0.55-1.30); POTASSIUM 4.3 mmol/L (3.5-5.1)
[2020-08-19 07:30] LABS: TOTAL IRON BIND. CAPACITY 132 ug/dL (250-450)
--- NOTE | 2020-08-19 08:04 | NUR ---
Initial notes Awake, oriented. Denies any pain or shortness of breath. Afebrile. Enc to call for help as needed. Call light within reach.
[2020-08-19 08:06] VITALS: BP_SYST 117
--- NOTE | 2020-08-19 09:00 | NUR ---
MD rounds Seen by Dr. Lozano, aware of old blood on the dialysis port, no active bleeding noted.
[2020-08-19] MEDS ORDERED: CARVEDILOL 12.5 MG TABLET (COREG) ONE ×2 (09:01→20:31)
[2020-08-19] MEDS: CARVEDILOL 12.5 MG TABLET (COREG) PO SCH ×2 (09:07→20:37)
[2020-08-19] MEDS: ALPRAZolam 0.25 MG TABLET PO PRN ×2 (09:34→16:37)
--- NOTE | 2020-08-19 11:00 | NUR ---
Notes Seems asleep with head covered with blanket. Sinus on the monitor.
[2020-08-19 12:00] VITALS: BP_SYST 95
--- NOTE | 2020-08-19 13:38 | NUR ---
Rheumatologist Notes AS400 PROGRAMMER spoke to Rn Martin puente. a suicidal referral AS400 PROGRAMMER received for pt. Hat Binder was helpful and stated that is not accurate. Rn looked into pts. file further and reviewed as well as made correction stating pt. is not suicidal AS400 PROGRAMMER met with patient at bedside who was eating some taco medina someone had brought for him. Pt. was amenable to this interview. Patient was awake and alert and was able to carry on a conversation. Patients answered made sense. Patient gave AS400 PROGRAMMER some corrections on the demographics. There are new numbers for contacts as follows, MomVanessa is at [phone], patients sistersJordana is at [phone] and patients cell is [phone]. His PCP is Dr. Lynnette Ayala in [place]. Patient denied ever needing any mental health services and never having any mental health diagnosis. Pt. denied ever feeling suicidal. Patient did state he misses some dialysis apts. when he is not feeling well, but expressed knowing how important attending these appointments are. Patient stated he did not need any resources or services. AS400 PROGRAMMER will remain available as needed.
--- NOTE | 2020-08-19 13:56 | NUR ---
Dietitian Recommendations * Recommend renal diet w/ Nepro TID (ONS provides 1275 kcal/day, 57 gm protein/day) * Encourage increase PO intakes LP, RD Please refer to Nutrition Assessment for details. Addendum: 08/19/20 at [address] Amended: Links added.
--- NOTE | 2020-08-19 14:00 | NUR ---
Notes-Watching TV, No needs at this time. Av shunt dressing was changed by dialysis nurse. No bleeding noted at this time.
[2020-08-19 16:00] VITALS: BP_SYST 110
--- NOTE | 2020-08-19 18:10 | NUR ---
Notes- eating food from home, denies any pain or discomfort. dressing on left av shunt is dry and intact. No distress noted.
--- NOTE | 2020-08-19 19:30 | NUR ---
OPENING NOTES: Received report from dayshift nurse. Patient is laying in bed with no s/s of distress or discomfort. He is on room air with unlabored breathing. AV shunt noted on left upper arm, thrill present. Also noted IV on RAC with dry dressing. Ensured all safety precautions. Bed is in the lowest position and call light within reach.
[2020-08-19 20:00] VITALS: BP_SYST 126
--- NOTE | 2020-08-19 20:35 | NUR ---
MEDICATION ADMINISTRATION: Medications were administered as ordered by , pt tolerated well. He refused to take administered Neurontin. Educated patient about Restoril, it's benefits and potential side effects such as drowsiness. Advised patient to use urinal at bedside and call for assistance to use the bathroom if he feels drowsy, he verbalized understanding. Will continue to monitor patient.
[2020-08-19] MEDS: GABAPENTIN 100 MG CAPSULE PO SCH (20:37)
[2020-08-19] MEDS: TEMAZEPAM 15 MG CAPSULE PO SCH (20:37)
--- NOTE | 2020-08-19 22:00 | NUR ---
RN ROUNDS: Patient is laying in bed, appears to be asleep. He is not exhibiting any s/s of distress or discomfort. Will continue to monitor.
[2020-08-20] VITALS: BP_SYST 114
--- NOTE | 2020-08-20 | NUR ---
RN ROUNDS / VITALS: Patient is laying in bed with no s/s of distress or discomfort. He is currently asleep. Vital signs are WNL. Will continue to monitor patient. Bed is in the lowest position and call light within reach. His room is free of clutter and well lit.
--- NOTE | 2020-08-20 02:00 | NUR ---
RN ROUNDS: Patient is laying in bed and appears to be asleep with no s/s of distress or discomfort. Will continue to monitor patient.
--- NOTE | 2020-08-20 04:00 | NUR ---
RN ROUNDS: Patient is laying in bed and appears to be asleep with no s/s of distress or discomfort. Will continue to monitor patient.
--- NOTE | 2020-08-20 06:44 | NUR ---
CLOSING NOTES: Patient is laying in bed with no s/s of distress or discomfort and continues to be asleep. He is on room air with unlabored breathing. IV on RAC patent and intact with dry dressing. Patient's daily weight is 93.4 lb. All needs were met throughout shift. Ensured all safety precautions. Bed is in the lowest position and call light within reach. Will endorse to dayshift nurse.
--- NOTE | 2020-08-20 07:30 | NUR ---
OPENING NOTES PT RESTING IN BED, CHEST RISE AND FALL NOTED. NONLABORED BREATHING NOTED ON ROOM AIR, TOLERATING WELL. IV LINE INTACT AND PATENT, NO SIGNS OF INFILTRATION NOTED. NO ACUTE DISTRESS NOTED. ALL NEEDS MET. CALL LIGHT IN REACH. CONTINUE TO MONITOR.
[2020-08-20 08:00] VITALS: BP_SYST 105
[2020-08-20 08:07] LABS: FOLATE (FOLIC ACID) 3.2 ng/mL (>3.0)
[2020-08-20] MEDS ORDERED: CARVEDILOL 12.5 MG TABLET (COREG) ONE (08:34)
[2020-08-20] MEDS: CARVEDILOL 12.5 MG TABLET (COREG) PO SCH (08:41)
--- NOTE | 2020-08-20 08:47 | NUR ---
ROUTINE MEDS ADMINISTERED ORDERED PER MD, EDUCATION GIVEN, TOLERATED WELL. CONTINUE TO MONITOR.
--- NOTE | 2020-08-20 10:00 | NUR ---
ROUNDS PT AWAKE, WATCHING TV. NO ACUTE DISTRESS NOTED. ALL NEEDS MET. CALL LIGHT IN REACH. CONTINUE TO MONITOR.
[2020-08-20] MEDS: ALPRAZolam 0.25 MG TABLET PO PRN (11:40)
--- NOTE | 2020-08-20 11:42 | NUR ---
PT C/O ANXIETY, ADMINISTERED PRN MEDS ORDERED PER MD, EDUCATION GIVEN, TOLERATED WELL. CONTINUE TO MONITOR.
[2020-08-20 12:00] VITALS: BP_SYST 124
--- NOTE | 2020-08-20 12:00 | NUR ---
PLACE LUNCH TRAY AT PT'S BEDSIDE. ALL NEEDS MET. CALL LIGHT IN REACH. CONTINUE TO MONITOR.
--- NOTE | 2020-08-20 15:29 | NUR ---
ROUNDS PT AWAKE AND ALERT, WATCHING TV IN BED. NO ACUTE DISTRESS NOTED ALL NEEDS MET. CONTINUE TO MONITOR.
[2020-08-20 16:20] VITALS: BP_SYST 115
--- NOTE | 2020-08-20 16:27 | NUR ---
PT C/O PAIN, ADMINISTERED PRN PAIN MEDS ORDERED PER MD, EDUCATION GIVEN, TOLERATED WELL. CONTINUE TO MONITOR.
--- NOTE | 2020-08-20 18:38 | NUR ---
CLOSING NOTES PT RESTING IN BED, CHEST RISE AND FALL NOTED, EASILY AWAKEN. NONLABORED BREATHING NOTED ON ROOM AIR, TOLERATING WELL. IV LINE INTACT AND PATENT, NO SIGNS OF INFILTRATION NOTED. BED LOCKED AND IN LOWEST POSITION. FALL AND ASPIRATION PRECAUTIONS IN PLACE. NO ACUTE DISTRESS NOTED. ALL NEEDS MET. CALL LIGHT IN REACH. WILL ENDORSE TO NOC NURSE.
--- NOTE | 2020-08-20 19:15 | NUR ---
OPENING NOTES: Received report from dayshift nurse. Patient is being discharged tonight as Dr. Schmitz just gave her the order and she will process discharge. Patient is in room in stable condition and wishes to go home as soon as possible. He is A & O x4.
[2020-08-20 19:19] VITALS: BP_SYST 123
--- NOTE | 2020-08-20 19:54 | NUR ---
D/C Patient Patient given medication reconciliation form and D/C instructions. Exit Care provided. Patient verbalized understanding. MD discussed with patient the results and treatment provided. Ambulatory with steady gait for discharge to home. Patient in stable condition, ID band removed. IV catheter removed, intact and dressing applied, no active bleeding. Rx of given. Patient educated on pain management. All belongings sent with patient. Patient was wheeled out to front of hospital where his parents were waiting to go home in private auto.
--- NOTE | 2020-08-24 11:48 | NUR ---
Discharge Follow Up Phone Call Rn Orthopaedic phoned patient, , on 08/22/20 (no answer/no voicemail), 08/23/20 (busy), and 08/24/20 (the person you are calling is not accepting calls at this time). No further calls will be attempted.
== END 2020-08-20 19:45 | disposition home or self-care (01) | DRG 640 ==
LOC: SED 18:43 → STU 22:47
PROVIDERS: ADMIT Family Medicine; ATTEND Family Medicine
PROC: 5A1D70Z Performance of Urinary Filtration, Intermittent, Less than 6 Hours Per Day (ICD-10-PCS; principal; 2020-08-18)
DX: E87.5 Hyperkalemia (principal); E43 Unspecified severe protein-calorie malnutrition; N18.6 End stage renal disease; I12.0 Hypertensive chronic kidney disease with stage 5 chronic kidney disease or end stage renal disease; N17.9 Acute kidney failure, unspecified; Z68.1 Body mass index [BMI] 19.9 or less, adult; Z20.828 Contact with and (suspected) exposure to other viral communicable diseases; D64.9 Anemia, unspecified; F41.9 Anxiety disorder, unspecified; Z99.2 Dependence on renal dialysis; Z88.1 Allergy status to other antibiotic agents; Z88.8 Allergy status to other drugs, medicaments and biological substances
CPT/HCPCS: 36415; 72125-TC; 72128; 72131; 76376; 80048; 80053; 82607; 82728; 82746; 83540-TC; 83550-TC; 85025; 87081; 90935; 93005; 94640; 96374; 96375; 99285; G0378; J0610; J1885; J2270; J7613